=== PATIENT | female | born 1965 | race Caucasian/White ===

== ENCOUNTER → 2019-12-12 11:20 | Outpatient (BNVA) | payer OTHER, SELFPAY | PROVIDERS: Visit Provider Internal Medicine | DX: A53.9 Syphilis, unspecified (principal) | CPT/HCPCS: 96372; 99211; J0561 ==

== ENCOUNTER → 2019-12-22 14:32 | Outpatient (BNVA) | payer OTHER, SELFPAY | PROVIDERS: PCP Internal Medicine; Referring Provider Internal Medicine; Visit Provider Nurse Practitioner | DX: K90.0 Celiac disease (principal); K86.81 Exocrine pancreatic insufficiency; K21.9 Gastro-esophageal reflux disease without esophagitis; A53.9 Syphilis, unspecified; Z98.890 Other specified postprocedural states; Z79.899 Other long term (current) drug therapy | CPT/HCPCS: 96372; 99211; 99214; J0561 ==

== ENCOUNTER → 2020-01-12 08:41 | Outpatient (BNVA) | payer OTHER, SELFPAY | PROVIDERS: Visit Provider Nurse Practitioner | DX: K90.0 Celiac disease (principal); R10.11 Right upper quadrant pain; K21.9 Gastro-esophageal reflux disease without esophagitis; R19.7 Diarrhea, unspecified; R10.13 Epigastric pain | CPT/HCPCS: 99212 ==

== ENCOUNTER → 2020-04-25 10:00 | Outpatient (BNVA) | payer OTHER, SELFPAY | PROVIDERS: PCP Internal Medicine; Visit Provider Nurse Practitioner ==

== ENCOUNTER 2020-11-16 07:04 | Outpatient (REF) | payer OTHER, SELFPAY ==
[2020-11-16 07:36] LABS: MANUAL DIFF FLAG NO
[2020-11-16 07:38] LABS: Basophils Absolute Auto 0.1 X10*3/uL (0.0-0.2); Basophils Percent Auto 1.3 % (0-2); Eosinophils Absolute Auto 0.5 X10*3/uL (0.0-0.4); Hematocrit 42.1 % (37-47); Hemoglobin 13.6 g/dl (12.0-16.0); Imm Gran Abs Auto 0.01 X10*3/uL (0.00-0.03); Imm Gran Pct Auto 0.1 % (0.0-0.4); Lymphocytes Absolute Auto 2.7 X10*3/uL (1.2-4.9); Lymphocytes Percent Auto 40.1 % (20-40); Mean Corpuscular HGB Conc 32.3 g/dl (31.0-35.0); Mean Corpuscular Hemoglobin 28.4 pg (27.0-33.0); Mean Corpuscular Volume 87.9 fL (80-98); Mean Platelet Volume 10.7 fL (9.4-12.3); Monocytes Absolute Auto 0.7 X10*3/uL (0.1-1.2); Monocytes Percent Auto 10.3 % (2-11); Neutrophils Absolute Auto 2.8 X10*3/uL (2.0-8.3); Neutrophils Percent Auto 41.2 % (45-73); Platelet Count 249 X10*3/uL (160-400); Red Blood Count 4.79 X10*6/uL (4.20-5.50); Red Cell Distribution Width 12.9 % (11.0-16.0); White Blood Count 6.7 X10*3/uL (4.8-10.8)
[2020-11-16 07:57] LABS: Alanine Aminotransferase 21 U/L (0-31); Albumin Level 4.3 g/dL (3.5-5.0); Alkaline Phosphatase 133 U/L (39-117); Anion Gap 11 (12-20); Aspartate Amino Transferase 19 U/L (5-31); Bilirubin Total 0.4 mg/dL (0.0-1.0); Blood Urea Nitrogen 11 mg/dL (9-16); Calcium 10.2 mg/dL (8.4-10.2); Carbon Dioxide 27 mmol/L (22-29); Chloride 109 mmol/L (96-108); Cholesterol 200 mg/dL; Estimated Glomerular Filt Rate > 60; Glucose Fasting 97 mg/dL (60-99); HDL Cholesterol 41 mg/dL; LDL Cholesterol Calculated 124 mg/dl; Potassium 4.2 mmol/L (3.3-5.1); Sodium 143 mmol/L (135-145); Total Protein 7.2 g/dL (6.5-8.0); Triglycerides 176 mg/dL
[2020-11-21 20:57] LABS: Vitamin D 25-OH, D2 <4 ng/mL; Vitamin D 25-OH, D3 28 ng/mL; Vitamin D 25-OH, Total 28 ng/mL (30-100)
== END 2020-11-16 07:05 | disposition home or self-care (01) ==
LOC: HO.LAB 07:04
PROVIDERS: PCP Internal Medicine; Visit Provider Internal Medicine
DX: E55.9 Vitamin D deficiency, unspecified (principal); K21.9 Gastro-esophageal reflux disease without esophagitis; D64.9 Anemia, unspecified; E78.5 Hyperlipidemia, unspecified
CPT/HCPCS: 36415; 80053; 80061; 82306; 85025

== ENCOUNTER 2021-04-09 10:39 | Outpatient (REF) | payer OTHER, SELFPAY ==
[2021-04-11 14:21] LABS: Antibody to SS-A Antigen <1.0 NEG AI (<1.0 NEG); Antibody to SS-B Antigen <1.0 NEG AI (<1.0 NEG)
== END 2021-04-09 10:40 | disposition home or self-care (01) ==
LOC: HO.LAB 10:39
PROVIDERS: PCP Internal Medicine; Visit Provider Nurse Practitioner Family
DX: R68.2 Dry mouth, unspecified (principal); M54.2 Cervicalgia; M79.18 Myalgia, other site; F17.210 Nicotine dependence, cigarettes, uncomplicated; F33.0 Major depressive disorder, recurrent, mild; Z79.899 Other long term (current) drug therapy
CPT/HCPCS: 36415; 86235; 99202

== ENCOUNTER 2021-06-03 12:00 | Outpatient (RCR) | payer OTHER, SELFPAY ==
--- NOTE | 2021-05-10 13:19 | MHC.PT.EP ---
[facility] [place] [facility] [place] [facility] [place] [facility] [address] Kevin Valles [address] [phone] F: [phone] F: [phone] F: [phone] F: [phone] Physical Therapy Plan of Care Date of Evaluation: Date of Surgery: N/A Diagnosis: M79.18 myalgia, other site M54.2 cervicalgia Assessment: pt presents to physical therapy with pain, decreased range of motion, decreased strength, impaired functional mobility, impaired postural awareness, and gait deviations. pt is a good candidate for skilled PT due to age, potential remediation of impairments, typical disease/condition progression and prognosis, comorbidities, and motivation. pt would benefit from tailored strengthening and stretching exercise program, functional training, gait training, postural re-training, neuromuscular re-education, modalities as needed for pain, equipment safety demonstration. Frequency and Duration: The patient will be seen 2x/wk for 4 wks Short Term Goals: pt will be I w/ HEP to promote self-management of condition. pt will improve B cervical rotation by at least 10 degrees to promote ease w/ head turning for driving. Prison Goals: pt will report a statistically significant improvement in self-reported outcome measure, NDI, to promote return to PLOF. pt will improve B shoulder flexion by 15 degrees to promote ease in reaching for cooking utensils in higher cabinets for meal prep. Treatment Plan: Modalities to reduce pain, spasms and effusion. Manual therapy to restore motion and function. Therapeutic exercise to improve strength and flexibility. Neuromuscular re-education for posture and balance. Therapeutic activities to return to functional activities of daily living. Electronically signed by: Jennifer Britt PT, DPT Please sign and return to therapist. Thank you for your referral.
--- NOTE | 2021-06-18 14:49 | MHC.PT.DC ---
[facility] [place] Office [place] [facility] [place] Office [address] Kevin Valles [address] [phone] F: [phone] F: [phone] F: [phone] F: [phone] Physical Therapy Discharge Report Diagnosis: M79.18 myalgia, other site M54.2 cervicalgia Date of Surgery: N/A Date of Evaluation: 05/10/21 Date of Discharge: 06/18/21 Treatments to Date: 5 Cancellations to Date: 3 No Shows to Date: 1 Discharge Status: Improved Function Independent with HEP Visit Non-compliance Discharge Summary: The patient was consistently reporting complete resolution of her neck pain with physical therapy intervention. She had some residual tension to bilateral upper traps which were being managed with stretching, moist heat, and TENS. She no showed her last appointment and has not followed up with any another appointments in nearly two weeks. She is discharged from this physical therapy plan of care. Electronically signed by: Jennifer Britt PT, DPT Please sign and return to therapist. Thank you for your referral.
== END 2021-06-18 14:50 | disposition home or self-care (01) ==
LOC: HO.PT 12:00
PROVIDERS: PCP Internal Medicine; Visit Provider Nurse Practitioner Family
DX: M79.18 Myalgia, other site (principal); M54.2 Cervicalgia
CPT/HCPCS: 97014; 97110; 97140; 97162

== ENCOUNTER 2021-10-28 10:26 | Outpatient (REF) | payer OTHER, SELFPAY ==
--- NOTE | ~2021-10-28 | XR_ITS ---
EXAMINATION: 1. RADIOGRAPHS LUMBAR SPINE 2. RADIOGRAPHS SACROILIAC JOINTS CLINICAL INFORMATION: Low back pain with bilateral sciatica. COMPARISON: None TECHNIQUE: 3 views of the lumbar spine and 3 views of the sacroiliac joints were obtained. FINDINGS: 5 nonrib-bearing lumbar vertebral bodies are visualized. There is mild levoscoliosis of the lumbar spine, possibly positional. Lumbar vertebral body heights are maintained. There is a moderate to severe narrowing of the L5/S1 disc space height with mild narrowing of other scattered joint spaces throughout the lumbar spine. There are prominent degenerative changes of the posterior elements of the lower lumbar spine. Small osteophytes scattered throughout the lumbar spine. The pelvic ring is intact. Sacroiliac joints are symmetric. No gross sacral fracture. Small pelvic calcification is likely vascular in nature. XR/XR sacroiliac joint min 3V IMPRESSION: -Moderate degenerative changes of the lower lumbar spine. No compression deformity. -Symmetric sacroiliac joints.
--- NOTE | ~2021-10-28 | XR_ITS ---
EXAMINATION: 1. RADIOGRAPHS LUMBAR SPINE 2. RADIOGRAPHS SACROILIAC JOINTS CLINICAL INFORMATION: Low back pain with bilateral sciatica. COMPARISON: None TECHNIQUE: 3 views of the lumbar spine and 3 views of the sacroiliac joints were obtained. FINDINGS: 5 nonrib-bearing lumbar vertebral bodies are visualized. There is mild levoscoliosis of the lumbar spine, possibly positional. Lumbar vertebral body heights are maintained. There is a moderate to severe narrowing of the L5/S1 disc space height with mild narrowing of other scattered joint spaces throughout the lumbar spine. There are prominent degenerative changes of the posterior elements of the lower lumbar spine. Small osteophytes scattered throughout the lumbar spine. The pelvic ring is intact. Sacroiliac joints are symmetric. No gross sacral fracture. Small pelvic calcification is likely vascular in nature. XR/XR lumbar spine 2-3V IMPRESSION: -Moderate degenerative changes of the lower lumbar spine. No compression deformity. -Symmetric sacroiliac joints.
--- NOTE | ~2021-10-28 | US_ITS ---
EXAMINATION: US ABDOMEN COMPLETE CLINICAL INFORMATION: Left upper quadrant pain. COMPARISON: Ultrasound abdomen 12/17/2016. TECHNIQUE: Real-time imaging of the abdominal viscera. FINDINGS: PANCREAS: Normal. ABDOMINAL AORTA: The proximal, mid, and distal segments are normal in caliber. INFERIOR VENA CAVA: Visualized portions are normal. LIVER: Normal. The liver is normal in size. The liver contour is normal. Parenchymal echogenicity is normal. No focal hepatic lesion. There is no intrahepatic biliary duct dilatation seen. GALLBLADDER: Gallbladder polyps seen previously are not visualized at this time. The gallbladder is physiologically distended without evidence of stones, sludge, polyps, wall thickening or pericholecystic fluid. COMMON BILE DUCT: Normal in caliber measuring 0.4 cm in diameter. RIGHT KIDNEY: Normal. No hydronephrosis. No renal calculi or focal parenchymal lesions. The kidney measures 10.1 cm in maximum dimension. LEFT KIDNEY: Normal. No hydronephrosis. No renal calculi or focal parenchymal lesions. The kidney measures 11.2 cm in maximum dimension. SPLEEN: Normal. The spleen measures 8.5 cm in maximum dimension. FREE FLUID: None. US/US abdomen complete IMPRESSION: Unremarkable complete abdomen ultrasound. No gallbladder polyps seen at this time.
== END 2021-10-28 10:27 | disposition home or self-care (01) ==
LOC: HO.US 10:26
PROVIDERS: Visit Provider Internal Medicine
DX: R10.12 Left upper quadrant pain (principal); M54.42 Lumbago with sciatica, left side
CPT/HCPCS: 72100; 72202; 76700

== ENCOUNTER → 2021-11-04 12:54 | Outpatient (BNVA) | payer OTHER, SELFPAY | PROVIDERS: PCP Internal Medicine; Visit Provider Nurse Practitioner Family | DX: M15.4 Erosive (osteo)arthritis (principal); M79.641 Pain in right hand; M79.642 Pain in left hand; M25.561 Pain in right knee; M25.562 Pain in left knee; M25.50 Pain in unspecified joint; Z79.899 Other long term (current) drug therapy | CPT/HCPCS: 99202 ==

== ENCOUNTER 2021-11-27 12:10 | Outpatient (REF) | payer OTHER, SELFPAY ==
--- NOTE | ~2021-11-27 | XR_ITS ---
EXAMINATION: XR KNEE, BILATERAL CLINICAL INFORMATION: Bilateral knee pain COMPARISON: 10/16/2016 TECHNIQUE: 4 views of each knee FINDINGS: Right knee: No joint space narrowing. No joint effusion. No fracture or suspicious bone lesion. No change. Left knee: No joint space narrowing. No joint effusion. No fracture or suspicious bone lesion. No change. XR/XR knee RT 3V IMPRESSION: Right knee: Normal. Left knee: Normal.
--- NOTE | ~2021-11-27 | XR_ITS ---
EXAMINATION: XR HAND, BILATERAL CLINICAL INFORMATION: Erosive osteoarthritis COMPARISON: 03/30/2018 TECHNIQUE: 3 views of each hand FINDINGS: Left hand: Joint space narrowing and osteophytes in a distal distribution with central erosions of the 2nd and 3rd DIP joints, as well as marked narrowing with dorsal osteophyte formation of the 4th DIP joint has slightly progressed. No active erosion is evident. No acute osseous abnormality. Right hand: Narrowing and central erosive changes of the 3rd DIP joint has significantly progressed. Cannot exclude an active erosion. Narrowing and osteophyte formation of the 4th DIP joint is similar. Otherwise unremarkable. 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 Right hand: Progression of erosive osteoarthritis of the 3rd DIP joint. Cannot exclude an active erosion. Otherwise no significant change.
--- NOTE | ~2021-11-27 | XR_ITS ---
EXAMINATION: XR HAND, BILATERAL CLINICAL INFORMATION: Erosive osteoarthritis COMPARISON: 03/30/2018 TECHNIQUE: 3 views of each hand FINDINGS: Left hand: Joint space narrowing and osteophytes in a distal distribution with central erosions of the 2nd and 3rd DIP joints, as well as marked narrowing with dorsal osteophyte formation of the 4th DIP joint has slightly progressed. No active erosion is evident. No acute osseous abnormality. Right hand: Narrowing and central erosive changes of the 3rd DIP joint has significantly progressed. Cannot exclude an active erosion. Narrowing and osteophyte formation of the 4th DIP joint is similar. Otherwise unremarkable. 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 Right hand: Progression of erosive osteoarthritis of the 3rd DIP joint. Cannot exclude an active erosion. Otherwise no significant change.
--- NOTE | ~2021-11-27 | XR_ITS ---
EXAMINATION: XR SINUSES CLINICAL INFORMATION: Chronic sinusitis COMPARISON: None TECHNIQUE: 3 views of the sinuses were obtained. FINDINGS: There is a layering air-fluid level within the right maxillary sinus. There is mucosal thickening and possible small amount of fluid in the left maxillary sinus. The ethmoid and frontal sinuses appear clear. No acute osseous abnormality is evident. XR/XR sinus min 3V IMPRESSION: Maxillary sinus disease with prominent air-fluid level within the right maxillary sinus and probable mucosal thickening of the left.
--- NOTE | ~2021-11-27 | XR_ITS ---
EXAMINATION: XR CERVICAL SPINE CLINICAL INFORMATION: Cervicalgia COMPARISON: None TECHNIQUE: 3 views of the cervical spine were obtained. FINDINGS: Moderate degenerative disc disease at C5-C6 with slight retrolisthesis, and C6-C7. Mild degenerative disc disease at C3-C4 with minimal anterolisthesis, and C4-C5. No fracture or prevertebral soft tissue swelling. Facet arthrosis is prominent on the right at the mid cervical spine. Prominent degenerative changes also present at the anterior atlantoaxial junction. XR/XR cervical spine 3V IMPRESSION: Mild to moderate multilevel spondylosis as described, most prominent at C5-C6 and C6-C7.
--- NOTE | ~2021-11-27 | XR_ITS ---
EXAMINATION: XR KNEE, BILATERAL CLINICAL INFORMATION: Bilateral knee pain COMPARISON: 10/16/2016 TECHNIQUE: 4 views of each knee FINDINGS: Right knee: No joint space narrowing. No joint effusion. No fracture or suspicious bone lesion. No change. Left knee: No joint space narrowing. No joint effusion. No fracture or suspicious bone lesion. No change. XR/XR knee LT 3V IMPRESSION: Right knee: Normal. Left knee: Normal.
[2021-11-27 13:15] LABS: Basophils Percent Auto 1.3 % (0-2); Eosinophils Absolute Auto 0.1 X10*3/uL (0.0-0.4); Eosinophils Percent Auto 4.5 % (0-4); Hematocrit 42.9 % (37.0-47.0); Hemoglobin 13.7 g/dl (12.0-16.0); Imm Gran Abs Auto 0.01 X10*3/uL (0.00-0.03); Imm Gran Pct Auto 0.3 % (0.0-0.4); Lymphocytes Absolute Auto 1.5 X10*3/uL (1.2-4.9); Lymphocytes Percent Auto 47.4 % (20-40); MANUAL DIFF FLAG SCAN; Mean Corpuscular HGB Conc 31.9 g/dl (31.0-35.0); Mean Corpuscular Hemoglobin 27.7 pg (27.0-33.0); Mean Corpuscular Volume 86.7 fL (80.0-98.0); Mean Platelet Volume 10.9 fL (9.4-12.3); Monocytes Absolute Auto 0.5 X10*3/uL (0.1-1.2); Monocytes Percent Auto 14.7 % (2-11); Neutrophils Percent Auto 31.8 % (45-73); Platelet Count 205 X10*3/uL (160-400); Red Blood Count 4.95 X10*6/uL (4.20-5.50); Red Cell Distribution Width 13.5 % (11.0-16.0); SCAN SMEAR FLAG 1; White Blood Count 3.1 X10*3/uL (4.8-10.8)
[2021-11-27 13:36] LABS: SLIDE REVIEW VERIFIED
[2021-11-27 13:39] LABS: Alanine Aminotransferase 30 U/L (0-31); Aspartate Amino Transferase 29 U/L (5-31); C Reactive Protein 0.51 mg/dL (< or = 0.50); Estimated Glomerular Filt Rate > 60
[2021-11-27 13:58] LABS: Erythrocyte Sedimentation Rate 10 MM/HR (0-20)
== END 2021-11-27 12:11 | disposition home or self-care (01) ==
LOC: HO.XRAY 12:10
PROVIDERS: PCP Internal Medicine; Visit Provider Nurse Practitioner Family
DX: M15.4 Erosive (osteo)arthritis (principal); M25.50 Pain in unspecified joint; J32.9 Chronic sinusitis, unspecified; M54.2 Cervicalgia; M79.641 Pain in right hand; M79.642 Pain in left hand; M25.561 Pain in right knee; M25.562 Pain in left knee
CPT/HCPCS: 36415; 70220; 72040; 73130; 73562; 82565; 84450; 84460; 85025; 85652; 86140

== ENCOUNTER → 2021-11-28 11:06 | Outpatient (REF) | payer OTHER, SELFPAY | LOC: HO.SL 11:06 | PROVIDERS: PCP Internal Medicine; Visit Provider Nurse Practitioner Family | DX: G47.33 Obstructive sleep apnea (adult) (pediatric) (principal); R06.83 Snoring; R40.0 Somnolence | CPT/HCPCS: 95806 ==

== ENCOUNTER 2021-12-17 09:30 | Outpatient (RCR) | payer OTHER, SELFPAY ==
--- NOTE | 2021-11-27 12:28 | MHC.OT.EP ---
[address] [phone] Occupational Therapy Plan of Care Date of Evaluation: 11/27/21 Diagnosis: Bilateral hand pain Assessment: Pt. is a 56 y/o female referred to OT for bilateral hand pain; dx of osteoarthritis in 2019. Pt. reports pain has been progressively getting worse over the last year. Pt. 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 Pt. does also c/o back pain radiating to L hip/LE and is awaiting a referral to PT. Pt. was educated in role of OT, POC, and goals. Lorena would benefit from short term skilled OT for pain management, education on joint protection techniques and strengthening to increase ease with ADL's/IADL's. Pt. in agreement with plan. 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 Thank you once again for your referral.
[2021-12-17 10:15] LABS: MANUAL DIFF FLAG NO
[2021-12-17 10:34] LABS: Basophils Absolute Auto 0.1 X10*3/uL (0.0-0.2); Basophils Percent Auto 1.1 % (0-2); Eosinophils Absolute Auto 0.3 X10*3/uL (0.0-0.4); Eosinophils Percent Auto 5.1 % (0-4); Hematocrit 41.7 % (37.0-47.0); Hemoglobin 13.1 g/dl (12.0-16.0); Imm Gran Abs Auto 0.01 X10*3/uL (0.00-0.03); Imm Gran Pct Auto 0.2 % (0.0-0.4); Lymphocytes Absolute Auto 2.5 X10*3/uL (1.2-4.9); Lymphocytes Percent Auto 39.5 % (20-40); Mean Corpuscular HGB Conc 31.4 g/dl (31.0-35.0); Mean Corpuscular Hemoglobin 27.3 pg (27.0-33.0); Mean Corpuscular Volume 87.1 fL (80.0-98.0); Mean Platelet Volume 11.2 fL (9.4-12.3); Monocytes Absolute Auto 0.6 X10*3/uL (0.1-1.2); Monocytes Percent Auto 8.7 % (2-11); Neutrophils Absolute Auto 2.9 x10*3/uL (2.0-8.3); Neutrophils Percent Auto 45.4 % (45-73); Platelet Count 250 X10*3/uL (160-400); Red Blood Count 4.79 X10*6/uL (4.20-5.50); White Blood Count 6.3 X10*3/uL (4.8-10.8)
== END 2022-03-19 09:57 | disposition home or self-care (01) ==
LOC: HO.OT 09:30
PROVIDERS: PCP Internal Medicine; Visit Provider Nurse Practitioner Family
DX: M79.641 Pain in right hand (principal); M79.642 Pain in left hand
CPT/HCPCS: 36415; 85025; 97018; 97110; 97165

== ENCOUNTER → 2022-01-02 11:06 | Outpatient (BNVA) | payer OTHER, SELFPAY | PROVIDERS: PCP Internal Medicine; Visit Provider Internal Medicine | DX: G47.33 Obstructive sleep apnea (adult) (pediatric) (principal); R40.0 Somnolence; G47.34 Idiopathic sleep related nonobstructive alveolar hypoventilation | CPT/HCPCS: 99202 ==

== ENCOUNTER 2022-04-01 10:42 | Outpatient (REF) | payer OTHER, SELFPAY ==
--- NOTE | ~2022-04-01 | MM_ITS ---
EXAMINATION: MM DIAGNOSTIC DIGITAL BREAST TOMOSYNTHESIS, BILATERAL US DIAGNOSTIC ULTRASOUND BREAST, LEFT CLINICAL INFORMATION: Left nipple pain and burning sensation. No discharge. No erythema. The lifetime risk of breast cancer based on the Tyrer-Cuzick Model is 7%. COMPARISON: None. TECHNIQUE: Digital breast tomosynthesis is performed in both the craniocaudal and mediolateral oblique views along with computer-aided detection (CAD). Synthesized 2D images are generated from the tomosynthesis. Ultrasound anterior left breast targeted to the nipple, areolar, subareolar and periareolar region. Grayscale imaging and color Doppler are performed without and with harmonics. FINDINGS: There are scattered areas of fibroglandular density (ACR BI-RADS breast composition Category b). Breast tissue composition borders on heterogeneously dense. There is a fine fibronodular parenchymal pattern. No significant mass or architectural abnormality. No abnormal calcifications. The axilla and skin contours are unremarkable. There is no skin thickening or coarsening of the Fortino's ligaments. Ultrasound left breast demonstrates no cystic or solid mass, architectural abnormality, or focal duct ectasia. No hyperemia. No skin thickening or edema tracking in the soft tissue planes. Results are discussed with the patient at time of visit, using an sales relationship manager. If previous outside mammography is able to be retrieved, comparison will be performed in an addendum report. MM/MM tomosynthesis diagnostic BI IMPRESSION: 1. No mammographic evidence of malignancy or inflammatory changes. 2. Unremarkable targeted left breast ultrasound. ASSESSMENT: BI-RADS 1: Negative RECOMMENDATION: 1. Patient should be managed based on the clinical impression. 2. Otherwise, routine annual screening mammography. This patient's information was entered into a reminder system with a target due date for their next mammogram.
== END 2022-04-01 10:43 | disposition home or self-care (01) ==
LOC: HO.MAMMO 10:42
PROVIDERS: PCP Internal Medicine; Visit Provider Internal Medicine
DX: N64.4 Mastodynia (principal)
CPT/HCPCS: 76642; 77062; 77066

== ENCOUNTER → 2022-06-03 10:36 | Outpatient (BNVA) | payer OTHER, SELFPAY | PROVIDERS: PCP Internal Medicine; Visit Provider Internal Medicine | DX: G47.33 Obstructive sleep apnea (adult) (pediatric) (principal); G47.34 Idiopathic sleep related nonobstructive alveolar hypoventilation; J30.9 Allergic rhinitis, unspecified | CPT/HCPCS: 99212 ==

== ENCOUNTER → 2022-07-08 11:28 | Outpatient (BNVA) | payer OTHER, SELFPAY | PROVIDERS: PCP Internal Medicine; Visit Provider Nurse Practitioner Family | DX: M15.4 Erosive (osteo)arthritis (principal); M25.50 Pain in unspecified joint; M54.42 Lumbago with sciatica, left side; M54.41 Lumbago with sciatica, right side | CPT/HCPCS: 99212 ==

== ENCOUNTER 2022-12-15 13:26 | Outpatient (AMB) | payer OTHER, SELFPAY ==
--- NOTE | 2022-12-15 15:18 | MHC.OFFWIV ---
Intake Vital Signs 12/15/22 15:19 Height 5 ft 7 in Weight 162 lb BMI 25.4 BP 122/76 Blood Pressure Location Lt brachial Position Sitting Pulse 83 Pulse Source Pulse Oximeter Pulse Oximetry (%) 98 Oxygen Delivery Method Room Air Intake Visit Reasons: EP sore throat/?Sinus (masked) Intake Note: Patient here for sore throat that has been present since or thursday and has been having difficulty swallowing and also has complaints of ear pain, the left side mostly. Patient Tobacco Use Status: Current someday Tobacco user Allergies No Known Allergies [No Known Allergies*] Allergy (Verified 12/15/22 16:01) Medication List - Last Reconciled 12/15/22 by Krishan Fox MD acetaminophen 500 mg PO Q6H PRN albuterol sulfate 90 mcg/actuation 2 puffs inhalation Q6H PRN 30 days diclofenac sodium 1% (Voltaren Arthritis Pain) 2 grams topical BID escitalopram oxalate 10 mg PO DAILY fluticasone propionate 50 mcg/actuation 1 spray intranasal DAILY ibuprofen 800 mg (2 x 400 mg) PO TID 30 days imipramine HCl 10 mg PO BID 90 days ipratropium bromide 2 sprays intranasal TID 30 days omeprazole 20 mg PO DAILY sodium chloride 0.65% (Saline Nasal) 1 spray intranasal Q4H PRN tizanidine 2 mg PO BEDTIME PRN 30 days HPI EP sore throat/?Sinus (masked) HPI Details Patient presents for a sick visit. Reporting symptoms of sinus congestion, sore throat and difficulty swallowing. Low-grade fever. No family member is sick. No recent travel. Patient reports symptoms of malaise and fatigue. [facility] Medical History Allergic rhinitis Blurry vision delivery delivered Chronic sinusitis Dry mouth Herpes zoster Insomnia Mild recurrent major depression Neck pain Nocturnal hypoxemia Numbness Polyarthritis Urge urinary incontinence Surgical History History of appendectomy History of esophagogastroduodenoscopy (EGD) Hx of colonoscopy Family History Father HTN (hypertension) Mother HTN (hypertension) Sister HTN (hypertension) Brother No problems noted. Son No problems noted. Daughter No problems noted. Paternal Grandfather Colon cancer Social History Household Members: Children Household Members Other:: grandchildren Housing: House Alcohol intake: never Patient Tobacco Use Status: Current someday Tobacco user Tobacco use type: Cigarette Cigarettes Per Day: 3 e-Cigarette/Vaping Use: Never Used Second Hand Smoke Exposure: No Substance Use Type: Marijuana service: No Current occupational status: unemployed Cognitive needs: No Hearing needs: No Vision needs: Yes (glasses) Physical Exam Vital Signs: Last Vital Signs Pulse 83 12/15/22 15:19 BP 122/76 12/15/22 15:19 Pulse Ox 98 12/15/22 15:19 Oxygen Delivery Method Room Air 12/15/22 15:19 BMI result Body Mass Index 25.4 Const General: cooperative and healthy appearing Nutritional Appearance: well nourished Orientation/consciousness: patient oriented x3 Limitations: no limitations HEENT Head: Yes normal to inspection Eyes General: appearance normal, both eyes and all related structures Neck Neck: Yes normal visual inspection Chest Chest palpation & inspection: normal palpation of entire chest wall Resp Effort & Inspection: normal respiratory effort Neuro General: patient oriented x3 Results AMB Rapid Strep AMB Rapid Strep Positive Last Edit by SHAKEEL Bassett on 12/15/22 15:45 AMB Rapid Strep previously reported as Negative Miah Knapp 12/15/22 15:45 Results Reviewed Results Reviewed: Laboratory Last Values Strep Scn [facility] Positive 12/15/22 15:41 Assessment & Plan Assessment & Plan (1) Upper respiratory tract infection: Code(s): J06.9 - Acute upper respiratory infection, unspecified Qualifiers: URI type: unspecified viral URI Qualified Code(s): J06.9 - Acute upper respiratory infection, unspecified Plan: Antibiotics ordered. Increase fluid intake. Tylenol for aches and pains. If symptoms worsen, follow-up here for a recheck. Strep results were discussed with patient. Orders: Orders AMB Rapid Strep Screen Today Z13.9 - Encounter for screening, unspecified Coding Level of Care Code Est Pt Level 3 (81694) Diagnoses Viral upper respiratory tract infection J06.9 URI type: unspecified viral URI
[2022-12-15 15:19] VITALS: BP 122/76; PULSE 83; O2SAT 98; BMI 25.4
== END 2022-12-15 16:25 | disposition home or self-care (01) ==
PROVIDERS: PCP Internal Medicine; Visit Provider Internal Medicine
DX: J06.9 Acute upper respiratory infection, unspecified (principal); J02.9 Acute pharyngitis, unspecified
CPT/HCPCS: 87880; 99213

== ENCOUNTER 2023-01-05 10:43 | Outpatient (AMB) | payer OTHER, SELFPAY ==
[2023-01-05 10:52] VITALS: BP 92/58; PULSE 78; O2SAT 97; BMI 25.5
--- NOTE | 2023-01-05 10:52 | A.OFFVIS_ITS ---
Intake Vital Signs 01/05/23 10:52 Height 5 ft 7 in Weight 163 lb BMI 25.5 BP 92/58 L Blood Pressure Location Lt brachial Position Sitting Pulse 78 Pulse Source Pulse Oximeter Pulse Oximetry (%) 97 Oxygen Delivery Method Room Air Intake Visit Reasons: Obstructive sleep apnea Intake Note: pt is here for follow up and states she is not using cpap Community Service Officer Required: Yes Community Service Officer Name: merritt Allergies No Known Allergies [No Known Allergies*] Allergy (Verified 01/05/23 11:15) Medication List - Last Reconciled 01/05/23 by Whit Guzman MD acetaminophen 500 mg PO Q6H PRN albuterol sulfate 90 mcg/actuation 2 puffs inhalation Q6H PRN 30 days diclofenac sodium 1% (Voltaren Arthritis Pain) 2 grams topical BID escitalopram oxalate 10 mg PO DAILY fluticasone propionate 50 mcg/actuation 1 spray intranasal DAILY ibuprofen 800 mg (2 x 400 mg) PO TID 30 days imipramine HCl 10 mg PO BID 90 days ipratropium bromide 2 sprays intranasal TID 30 days omeprazole 20 mg PO DAILY sodium chloride 0.65% (Saline Nasal) 1 spray intranasal Q4H PRN tizanidine 2 mg PO BEDTIME PRN 30 days Do you need a note to return to daycare/school/sports/work: No HPI Obstructive sleep apnea HPI Details This 57 years old female is a case of obstructive sleep apnea secondary to, Retroganthia of the lower jaw, a fixed deformity. CPAP with full face mask was prescribed. Patient has not been able to use it. Complains of claustrophobic feeling when she puts the face mask on. Has not been sleeping good because of, snoring and frequent awakening. She has a rather severe is degree of sleep apnea. Her weight is relatively normal. She does have allergic rhinitis which is controlled with use of Flonase. [facility] Medical History Allergic rhinitis Nocturnal hypoxemia Blurry vision Polyarthritis Mild recurrent major depression Urge urinary incontinence Dry mouth Neck pain Numbness Chronic sinusitis Insomnia Herpes zoster delivery delivered Surgical History Hx of colonoscopy History of esophagogastroduodenoscopy (EGD) History of appendectomy Family History Father HTN (hypertension) Mother HTN (hypertension) Sister HTN (hypertension) Brother No problems noted. Son No problems noted. Daughter No problems noted. Paternal Grandfather Colon cancer Social History Household Members: Children Household Members Other:: grandchildren Housing: House Alcohol intake: never Patient Tobacco Use Status: Current someday Tobacco user Tobacco use type: Cigarette Cigarettes Per Day: 3 e-Cigarette/Vaping Use: Never Used Second Hand Smoke Exposure: No Substance Use Type: Marijuana service: No Current occupational status: unemployed Cognitive needs: No Hearing needs: No Vision needs: Yes (glasses) Review of Systems Const All systems reviewed & are unremarkable except as noted in HPI and below Eyes Reports no additional complaints ENT Reports nasal congestion, Reports nasal discharge and Reports nasal obstruction Card Reports no additional complaints Resp Reports no additional complaints GI Reports heartburn (GERD symptoms being treated with omeprazole) Reports no additional complaints Musc Reports myalgias and Reports arthralgias Skin/Breast Reports system reviewed and no additional complaints, except as documented Neuro Reports no additional complaints Psych Reports depression (Treated with escitalopram 10 mg daily) Endo Reports no additional complaints Bill/Lymph Reports no additional complaints Physical Exam Vital Signs: Last Vital Signs Pulse 78 01/05/23 10:52 BP 92/58 L 01/05/23 10:52 Pulse Ox 97 01/05/23 10:52 Oxygen Delivery Method Room Air 01/05/23 10:52 BMI result Body Mass Index 25.5 Const General: healthy appearing, comfortable, no acute distress, alert and awake Orientation/consciousness: patient oriented x3 HEENT Other: She does have marked nasal congestion with almost partial obliteration of the nasal cavities. Head: Yes normal to inspection General nose exam: No nasal polyps present, No nasal discharge present and Abnormal mucous membranes and turbinates present (Marked hypertrophy of the nasal turbinates with the partial obliteration of) Face and sinus: Yes sinuses nontender Mouth: oropharynx normal Throat: Yes posterior oropharynx normal Eyes General: appearance normal, both eyes and all related structures Neck Neck: Yes normal visual inspection, Yes no lymphadenopathy, Yes trachea midline and Yes no JVD Thyroid: Thyroid normal Chest Chest palpation & inspection: normal inspection of the chest, normal palpation of entire chest wall and no tenderness Resp Effort & Inspection: normal respiratory effort Auscultation: no crackles, no rales and no wheezes Cardio Palpation: normal PMI Rate: regular rate Rhythm: regular rhythm Heart sounds: no gallops and no murmurs GI Palpation (GI): Soft to palpation, nontender, No hepatosplenomegaly present and no masses Auscultation: normal bowel sounds Back/Spine/Pelvis Thoracic/Lumbar Spine: thoracic and lumbar spine normal to inspection Skin General skin exam: no rashes or lesions noted Neuro General: patient oriented x3 and no focal motor deficits Cranial nerves: Yes CN's II-XII intact bilaterally Extrem General: Yes normal to inspection, Yes no clubbing, cyanosis or edema and Yes no calf tenderness Psych Appearance: grossly normal and well kempt Speech and movement: Normal speech and movement present Results Reviewed Results Reviewed: COMPLIANCE REPORT IS BLANK AND SHE HAS ACTUALLY NOT USED THE CPAP AT ALL. Assessment & Plan Assessment & Plan (1) JEREMIAH (obstructive sleep apnea): Comment: PATIENT IS OF NORMAL WEIGHT. SHE DOES HAVE RATHER SEVERE DEGREE OF OBSTRUCTIVE SLEEP APNEA. THIS SEEMS TO BE SECONDARY TO RETROGANTHIA AND CHRONIC ADELE- FACIAL MALFORMATION. EXPLAINED ABOUT THE FINDINGS OF THE SLEEP STUDY. TX: This patient has try to use CPAP with full face mask, but cannot use due to claustrophobia . Other options such as, ADELE DENTAL DEVICE, OR INSPIRE, discussed with her. She would like to try using CPAP with a nasal interface, Which is being ordered. She may need to use chinstrap along with that. I explained to her that the use of CPAP is the best option for her. If she still can not use then I would make arrangement to have her go for an Adele dental device. Code(s): G47.33 - Obstructive sleep apnea (adult) (pediatric) (2) Nocturnal hypoxemia: Comment: NOCTURNAL HYPOXEMIA IS MINIMAL AND IS EXPECTED TO RESOLVE WITH THE USE OF CPAP. SHE DOES NOT HAVE ANY UNDERLYING LUNG DISEASE. Code(s): G47.34 - Idiopathic sleep related nonobstructive alveolar hypoventilation (3) Allergic rhinitis: Comment: Chronic nasal congestion and blockage seems to be secondary to allergic rhinitis. TX: As noted under JEREMIAH , Code(s): J30.9 - Allergic rhinitis, unspecified Coding Level of Care Code Est Pt Level 3 (83161) Diagnoses JEREMIAH (obstructive sleep apnea) G47.33 Nocturnal hypoxemia G47.34 Allergic rhinitis J30.9
== END 2023-01-05 11:15 | disposition home or self-care (01) ==
PROVIDERS: PCP Internal Medicine; Visit Provider Internal Medicine
DX: G47.33 Obstructive sleep apnea (adult) (pediatric) (principal); G47.34 Idiopathic sleep related nonobstructive alveolar hypoventilation; J30.9 Allergic rhinitis, unspecified
CPT/HCPCS: 99213

== ENCOUNTER → 2023-01-05 10:43 | Outpatient (BNVA) | payer OTHER, SELFPAY | PROVIDERS: PCP Internal Medicine; Visit Provider Internal Medicine | DX: G47.33 Obstructive sleep apnea (adult) (pediatric) (principal); G47.34 Idiopathic sleep related nonobstructive alveolar hypoventilation; J30.9 Allergic rhinitis, unspecified | CPT/HCPCS: 99212 ==

== ENCOUNTER 2023-02-25 13:40 | Outpatient (REF) | payer OTHER, SELFPAY ==
[2023-02-26 07:57] LABS: HBc Num1 0.24 S/CO (0.00-0.79); HIV AB/AG Nonreactive (Nonreactive); HIV Num 1 0.07 S/CO (0.00-0.99); Hepatitis B Core Antibody Nonreactive (Nonreactive); ~HepC Num1 0.43 S/CO (0.00-0.79); ~Hepatitis C Antibody Nonreactive (Nonreactive)
[2023-02-26 11:43] LABS: CT PCR NOT DETECTED (Not Detect.); NG PCR NOT DETECTED (Not Detect.)
[2023-02-26 12:18] LABS: BV Int Neg Control Negative (Negative); BV Int Pos Control Positive (Positive)
[2023-02-27 13:23] LABS: RPR Rapid Plasma Reagin NON-REACTIVE (NON-REACTIVE)
== END 2023-02-25 13:41 | disposition home or self-care (01) ==
LOC: HO.LAB 13:40
PROVIDERS: PCP Internal Medicine; Visit Provider Advanced Practice Midwife
DX: Z11.4 Encounter for screening for human immunodeficiency virus [HIV] (principal); Z20.2 Contact with and (suspected) exposure to infections with a predominantly sexual mode of transmission; N39.41 Urge incontinence; Z86.19 Personal history of other infectious and parasitic diseases
CPT/HCPCS: 0353U; 36415; 86592; 86704; 86803; 87389; 87480; 87510; 87660; 99386

== ENCOUNTER 2023-02-25 13:40 | Outpatient (AMB) | payer OTHER, SELFPAY ==
--- NOTE | 2023-02-25 13:42 | MHC.OFFVIS ---
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 She is doing well with no concerns. Attempting to eat a healthy diet with calcium and vitamin D and stays active with exercise. Currently Not sexually active. Denies any vaginal dryness or irritation. STI testing offered; she accepts. Reports she has had syphilis treated twice in the past Last pap smear; 2016. Last mammogram; 2022. Colonoscopy is UTD, 2019. [facility] Medical History Allergic rhinitis Nocturnal hypoxemia Blurry vision Polyarthritis Mild recurrent major depression Urge urinary incontinence Dry mouth Neck pain Numbness Chronic sinusitis Insomnia Herpes zoster delivery delivered Surgical History Hx of colonoscopy History of esophagogastroduodenoscopy (EGD) History of appendectomy Family History Father HTN (hypertension) Mother HTN (hypertension) Sister HTN (hypertension) Brother No problems noted. Son No problems noted. Daughter No problems noted. Paternal Grandfather Colon cancer Social History Household Members: Children Household Members Other:: grandchildren Housing: House Alcohol intake: never Patient Tobacco Use Status: Current someday Tobacco user Tobacco use type: Cigarette Cigarettes Per Day: 3 e-Cigarette/Vaping Use: Never Used Second Hand Smoke Exposure: No Substance Use Type: Marijuana service: No Current occupational status: unemployed Cognitive needs: No Hearing needs: No Vision needs: Yes (glasses) Female Reproductive History Menstrual Total pregnancies: 2 Full term: 2 Number of Living Children: 2 Date of last pap smear: 10/28/16 (neg pap and hpv) Date of Mammogram: 04/01/22 (Birad 1) Review of Systems Const All systems reviewed & are unremarkable except as noted in HPI and below Reports as per HPI Eyes Reports no additional complaints ENT Reports no additional complaints Card Reports no additional complaints Resp Reports no additional complaints GI Reports as per HPI and Reports no additional complaints Reports as per HPI Musc Reports no additional complaints Skin/Breast Reports as per HPI Neuro Reports no additional complaints Psych Reports no additional complaints Endo Reports no additional complaints Bill/Lymph Reports no additional complaints Aller/Immun Reports no additional complaints Physical Exam Vital Signs: Last Vital Signs BP 110/72 02/25/23 13:43 BMI result Body Mass Index 25.4 Const General: cooperative, healthy appearing, no acute distress, well developed and alert Orientation/consciousness: patient oriented x3 HEENT Head: Yes normal to inspection Eyes General: appearance normal, both eyes and all related structures Neck Neck: Yes normal visual inspection Thyroid: Thyroid normal Chest Chest palpation & inspection: normal inspection of the chest and other (no puckering, dimpling, peau de orange, retraction, discharge, masses) Breast/axilla inspection: normal inspection of the breasts Breast/axilla palpation: normal palpation of the breasts Resp Effort & Inspection: normal respiratory effort GI Inspection: Yes normal to inspection and Yes scar Palpation (GI): Soft to palpation Rectal Exam - Female: deferred General: Yes bladder normal to palpation External Female Exam: normal external appearance and normal appearance of the urethra Speculum Exam - Vagina: normal appearance of the vagina, normal palpation and normal vaginal discharge Speculum Exam - Cervix: normal appearance of the cervix and normal palpation Bimanual exam- vagina & uterus: normal bimanual exam, normal palpation, uterine size normal, bladder normal to palpation, normal palpation and non-tender Bimanual Exam- Adnexa, other: no masses Skin General skin exam: no rashes or lesions noted Rashes: no rashes Neuro General: patient oriented x3 Cognition (Neuro): normal cognition Extrem General: Yes normal to inspection Psych Attitude: cooperative Thought process: Normal thought process present Assessment & Plan Assessment & Plan (1) Encounter for well woman exam with routine gynecological exam: Code(s): Z01.419 - Encounter for gynecological examination (general) (routine) without abnormal findings Plan Discussed: Current recommendations for pap smears per ASCCP guidelines. Breast awareness, periodic self breast exams and yearly mammogram. Maintain a healthy lifestyle, well balanced diet including Calcium 1,200 mg and Vitamin D 600 IU daily, and routine exercise. Use of condoms for STI if indicated. Contact the office with any postmenopausal bleeding. All of her questions and concerns were addressed to the best of my ability. 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 This note is constructed using voice recognition software. While every effort has been made to ensure accuracy, insurance associate errors may have been included. Orders: Orders RPR Monitor reflex titer Today Z86.19 - Personal history of other infectious and parasitic diseases Hepatitis C Antibody Today Z20.2 - Contact with and (suspected) exposure to infections with a predominantly sexual mode of transmission HIV Ab/Ag Today Z20.2 - Contact with and (suspected) exposure to infections with a predominantly sexual mode of transmission Hepatitis B Core Antibody Today Z20.2 - Contact with and (suspected) exposure to infections with a predominantly sexual mode of transmission MM tomosynthesis screening BI Today Z12.31 - Encounter for screening mammogram for malignant neoplasm of breast Coding Level of Care Code New Pt Prev Care 40-64y(13922) Diagnoses Encounter for well woman exam with routine gynecological exam Z01.419
[2023-02-25 13:43] VITALS: BP 110/72; BMI 25.4
== END 2023-02-25 15:11 | disposition home or self-care (01) ==
LOC: HO.HWS 13:40
PROVIDERS: PCP Internal Medicine; Visit Provider Advanced Practice Midwife
DX: Z01.419 Encounter for gynecological examination (general) (routine) without abnormal findings (principal)
CPT/HCPCS: 99386

== ENCOUNTER 2023-02-25 14:23 | Outpatient (REF) | payer OTHER, SELFPAY ==
[2023-03-04 07:54] LABS: HPV 16 RNA NOT DETECTED (NOT DETECTED); HPV mRNA E6/E7 rflx Detected (Not Detected)
== END 2023-02-25 14:24 | disposition home or self-care (01) ==
LOC: HO.LNP 14:23
PROVIDERS: Visit Provider Advanced Practice Midwife
DX: Z01.419 Encounter for gynecological examination (general) (routine) without abnormal findings (principal); Z11.51 Encounter for screening for human papillomavirus (HPV)
CPT/HCPCS: 87624; 87625; 88142

== ENCOUNTER 2023-02-25 14:23 | Outpatient (REF) | payer OTHER, SELFPAY | END 2023-02-25 14:24 | disposition home or self-care (01) | LOC: HO.LAB 14:23 | PROVIDERS: Visit Provider Advanced Practice Midwife | DX: Z13.89 Encounter for screening for other disorder (principal) ==

== ENCOUNTER 2023-03-17 12:07 | Emergency (ER) | payer OTHER, SELFPAY ==
--- NOTE | ~2023-03-17 | XR_ITS ---
EXAMINATION: XR LUMBOSACRAL SPINE CLINICAL INFORMATION: Low back pain, fall. COMPARISON: 10/28/2021 TECHNIQUE: 4 views of the lumbosacral spine. FINDINGS: Mild levoscoliosis of the lumbar spine. Small rounded pelvic calcifications are likely vascular. Facet arthritis in the lower lumbar spine. Fhpxxman-wk-zplzel degenerative changes at L5-S1 with loss of disc space height and hypertrophic change. Moderate spondylosis and loss of disc space height at L2-L3. The bones are diffusely demineralized. XR/XR lumbar spine 2-3V IMPRESSION: 1. Uluoogky-ky-lxaqtm degenerative disc disease most notable at L5-S1. 2. Facet arthritis in the lower lumbar spine. Additional imaging with CT scan or MRI should be considered for better visualization as these modalities are much more sensitive for detection of fracture or other underlying pathology.
--- NOTE | ~2023-03-17 | CT_ITS ---
EXAMINATION: CT LUMBAR SPINE WITHOUT CONTRAST CLINICAL INFORMATION: Fall on back. COMPARISON: Lumbar spine radiographs from 03/17/2023. TECHNIQUE: Multidetector helical imaging of the lumbar spine was obtained without intravenous contrast. Multiple axial reformats and coronal/sagittal reconstructions were created the technologist workstation for review. This CT examination was performed using dose optimization techniques as appropriate, variously including the following: *Automated exposure control. *Adjustment of mA and/or kV according to patient size (this includes techniques or standardized protocols for targeted exams where dose is matched to indication/reason for exam; i.e. extremities or head). *Use of iterative reconstruction technique. DLP: 509 mGy-cm FINDINGS: Mild left convex curvature of the lumbar spine. Minimal degenerative grade 1 anterolisthesis of L4 on L5. No evidence of acute fracture or traumatic subluxation. The vertebral body heights are maintained. Advanced degenerative disc disease at L5-S1. Moderate degenerative disc disease from L2-L5. No suspicious lytic or sclerotic osseous lesions. No significant abnormalities of the paraspinal musculature. Limited evaluation of the intra-abdominal structures without significant abnormalities. The abdominal aorta is of normal contour and caliber with mild calcific atherosclerotic disease. AXIAL SPINAL LEVELS: L1-L2: Shallow diffuse disc bulge. There is mild bilateral facet joint arthropathy. There is no neural foraminal stenosis. There is no demonstrated spinal canal stenosis. L2-L3: Mild diffuse disc bulge. There is mild bilateral facet joint arthropathy. There is no neural foraminal stenosis. There is no demonstrated spinal canal stenosis. L3-L4: Mild diffuse disc bulge. There is moderate bilateral facet joint arthropathy. There is no neural foraminal stenosis. There is no demonstrated spinal canal stenosis. L4-L5: Moderate diffuse disc bulge exacerbated by uncovering from anterolisthesis. There is moderate bilateral facet joint arthropathy. There is mild to moderate left and mild right neural foraminal stenosis. There appear to be narrowings of the subarticular zones with no demonstrated overt spinal canal stenosis centrally. L5-S1: Moderate diffuse disc bulge with posterior osseous ridging. There is moderate bilateral facet joint arthropathy. There is severe left worse than right neural foraminal stenosis. There is no demonstrated spinal canal stenosis. CT/CT lumbar spine wo IV con IMPRESSION: 1. No evidence of acute fracture or traumatic subluxation of the lumbar spine. 2. Moderate multilevel degenerative spondyloarthropathy of the lumbar spine as described in detail above. Most notably on this limited exam without intrathecal contrast, there appears to be narrowings of the subarticular zones at L4-L5 and L5-S1. Severe neural foraminal stenoses at L5-S1.
--- NOTE | ~2023-03-17 | CT_ITS ---
EXAMINATION: CT CHEST WITHOUT CONTRAST CLINICAL INFORMATION: Chest wall pain after fall COMPARISON: None available. TECHNIQUE: Multidetector volumetric CT imaging of the chest was done. Axial MIP volume rendering provided. Sagittal and coronal reformatted images were obtained. This CT examination was performed using dose optimization techniques as appropriate, variously including the following: *Automated exposure control *Adjustment of mA and/or kV according to patient size (this includes techniques or standardized protocols for targeted exams where dose is matched to indication/reason for exam; i.e. extremities or head) *Use of iterative reconstruction technique DLP: 189 mGy-cm FINDINGS: LUNGS: Peribronchial thickening is present. No infiltrates or suspicious lung masses are seen. Tiny perifissural lymph node is noted in the left lower lobe measuring 3 mm (8:207). Small punctate calcified granuloma present at the right lung base. MEDIASTINUM: The mediastinum is normal. CORONARY ARTERY CALCIFICATION: Mild PLEURA: There is no pleural effusion. No pleural mass or thickening. AXILLA: No lymphadenopathy. UPPER ABDOMEN: A small hiatal hernia is present. OSSEOUS STRUCTURES: Unremarkable. CT/CT chest wo IV con IMPRESSION: 1. No evidence of a traumatic injury in the chest. 2. Incidental note made of peribronchial thickening, small hiatal hernia and a few tiny pulmonary nodules. Fleischner guidelines were followed.
--- NOTE | ~2023-03-17 | XR_ITS ---
EXAMINATION: XR CHEST CLINICAL INFORMATION: Pain COMPARISON: None available. TECHNIQUE: 2 views of the chest were obtained. FINDINGS: The lungs are well-inflated. Heart size is normal. Prominent ascending aorta. No gross pleural effusion. Mild degenerative changes in the thoracic spine. Mild perihilar opacities, left greater than right, may represent mildly prominent vascularity versus inflammatory/infectious process. XR/XR chest 2V IMPRESSION: 1. Mild perihilar opacities, left greater than right, may represent mildly prominent vascularity versus inflammatory/infectious process. Correlation with clinical exam recommended. 2. Prominent ascending aorta. CT scan should be considered for further evaluation based on the clinical assessment.
[2023-03-17 12:26] VITALS: BP 134/68; PULSE 61; O2SAT 98
[2023-03-17 12:32] VITALS: BP 186/100; PULSE 77; RESP 19; TEMP 36.6; O2SAT 98; BMI 25.1
--- NOTE | 2023-03-17 12:38 | ED_ITS ---
HPI - General Adult General Chief complaint: Fall Stated complaint: fall Time Seen by Provider: 03/17/23 15:46 Source: patient, EMS, RN notes reviewed and old records reviewed Mode of arrival: EMS History of Present Illness HPI narrative: 57-year-old female with a past medical history of polyarthritis, chronic sinusitis, presenting to the ED via EMS complaining of right-sided low back and anterior chest wall pain s/p mechanical trip and fall around 11:00. States slipped on ice falling on to right buttock down 4 stairs. Denies head trauma or LOC. Admits when fell hitting buttock/back developed chest wall pain as well, denies direct injury/trauma to chest wall. Does report URI symptoms last week. Denies taking anticoagulation, headache, numbness/tingling, weakness, abdominal pain, nausea/vomiting, incontinence/retention Related Data Home Medications Medication Instructions Recorded Confirmed escitalopram oxalate 10 mg tablet 10 mg PO DAILY 04/09/21 12/15/22 Previous Rx's Medication Instructions Recorded ibuprofen 400 mg tablet 800 mg (2 x 400 mg) PO TID 30 days 02/21/21 #180 tabs acetaminophen 500 mg tablet 500 mg PO Q6H PRN pain #30 tabs 05/30/21 sodium chloride 0.65 % nasal spray 1 spray intranasal Q4H PRN nasal 08/18/21 aerosol (Saline Nasal) congestion #44 mL diclofenac sodium 1 % topical gel 2 g topical BID #100 grams 05/02/22 (Voltaren Arthritis Pain) ipratropium bromide 42 mcg (0.06 2 spray intranasal TID Nasal 06/03/22 %) nasal spray allergy 30 days #15 mL fluticasone propionate 50 1 spray intranasal DAILY for 07/31/22 mcg/actuation nasal allergies #16 mL spray,suspension imipramine HCl 10 mg tablet 10 mg PO BID 90 days #180 tabs 10/19/22 albuterol sulfate 90 mcg/actuation 2 puff inhalation Q6H PRN 01/06/23 aerosol inhaler shortness of breath or wheezing 30 days #6.7 grams tizanidine 2 mg tablet 2 mg PO BEDTIME PRN muscle 02/04/23 spasticity 30 days #30 tabs omeprazole 20 mg capsule,delayed 20 mg PO DAILY 90 days #90 caps 02/21/23 release metronidazole 0.75 % (37.5 mg/5 1 appful vaginal BEDTIME 5 days 02/27/23 gram) vaginal gel #70 grams cyclobenzaprine 10 mg tablet 10 mg PO TID PRN muscle spasm 5 03/17/23 days #15 tabs naproxen 500 mg tablet 500 mg PO BID PRN pain 7 days #14 03/17/23 tabs Allergies Allergy/AdvReac Type Severity Reaction Status Date / Time No Known Allergies Allergy Verified 03/17/23 12:34 [No Known Allergies*] Review of Systems Review of Systems: Constitutional: No Fever, No Chills ENT/Mouth:No Nasal Congestion, No sore throat, No Rhinorrhea, No Swallowing Difficulty Cardiovascular: No Chest Pain, No SOB Respiratory: No Cough Gastrointestinal: No Nausea, No Vomiting, No Abdominal pain Genitourinary: No Dysuria, No Urinary Frequency, No Hematuria, No Urinary Incontinence/retention Musculoskeletal: +joint pain, + Myalgias, + Joint Swelling Skin: No Skin Lesions, No rash Neuro: No Weakness, No Numbness, No Paresthesias, No head trauma, No LOC Yes all other systems are reviewed and are negative Constitutional: Constitutional: Reports as per HPI Neurologic: Denies Sensory deficit (Neuro) [facility] [place] Past Medical History Attestation statement: The following information was validated with the patient. Source: old records reviewed Onset Date is defined in the Problem List Problems that require an onset date and time if occurred within 24 hrs of arrival to the ED Aortic Dissection and Rupture; Neurologic impairment; Cardiopulmonary Arrest; Endotracheal Intubation; Insertion or Replacement of Mechanical Circulatory Assist Device Medical History Allergic rhinitis Nocturnal hypoxemia Blurry vision Polyarthritis Mild recurrent major depression Urge urinary incontinence Dry mouth Neck pain Numbness Chronic sinusitis Insomnia Herpes zoster delivery delivered Surgical History Hx of colonoscopy History of esophagogastroduodenoscopy (EGD) History of appendectomy Family History Family History Father HTN (hypertension) Mother HTN (hypertension) Sister HTN (hypertension) Brother No problems noted. Son No problems noted. Daughter No problems noted. Paternal Grandfather Colon cancer Social History Social History Household Members: Children Household Members Other:: grandchildren Housing: House Alcohol intake: never Patient Tobacco Use Status: Current someday Tobacco user Tobacco use type: Cigarette Cigarettes Per Day: 3 e-Cigarette/Vaping Use: Never Used Second Hand Smoke Exposure: No Substance Use Type: Marijuana Advance Directives: No Advance Directives Information Provided: No service: No Current occupational status: unemployed Cognitive needs: No Hearing needs: No Vision needs: Yes (glasses) Physical Exam ED Vital Signs: Vital Signs - 24 hr 03/17/23 12:32 03/17/23 16:48 Temperature 98 F 97.8 F Pulse Rate 77 65 Respiratory Rate 19 16 Blood Pressure 186/100 H 151/82 H Pulse Oximetry 98 94 Oxygen Delivery Method Room Air Room Air BMI result Body Mass Index 25.1 Const General: cooperative, healthy appearing and no acute distress Orientation/consciousness: patient oriented x3 Limitations: no limitations HENMT Head: Yes normal to inspection and Yes atraumatic Ears: hearing grossly normal bilaterally General nose exam: Normal external nose present Face and sinus: Yes normal facial exam Eyes General: appearance normal, both eyes and all related structures Pupils: Equal, round and reactive pupils present EOM: EOMs intact bilaterally Neck Neck: Yes normal visual inspection and Yes no meningeal signs Chest Chest palpation & inspection: normal inspection of the chest, no crepitus and tenderness (Anterior chest wall reproducing subjective complaint) Resp Effort & Inspection: normal respiratory effort and no respiratory distress Cardio Rate: regular rate GI Inspection: Yes normal to inspection Palpation (GI): Soft to palpation, nontender, no guarding and not rigid General: Yes no CVA tenderness Back/Spine/Pelvis Other: No midline cervical/thoracic/lumbar spinous step-off or deformity. +midline lumbar spinous tenderness to palpation. + bilateral lumbar MSK/paraspinal tenderness to palpation > right Back: no CVA tenderness Skin Rashes: no rashes Wounds: no wounds Neuro Other: Strength intact throughout. No saddle anesthesia. Sensation intact to light touch. Neurovascular intact distally General: patient oriented x3, tone normal, moves all extremities and no meningeal signs Cranial nerves: Yes CN's II-XII intact bilaterally and Yes Equal, round and reactive pupils present Gait exam (Neuro): Antalgic gait present Motor exam (neuro): 5 motor strength present throughout Sensory Exam: No Sensory deficit (Neuro) Extrem Other: pelvis stable General: Yes normal to inspection Course Course Course Narrative: RME: 57 yold female presents to the ED for low back pain and chest wall pain after slipping on ice outside and fell unto back and chest wall. patient denies head trauma and being on blood thinners. Xrays ordere 1558--XR lumbar spine 2-3V IMPRESSION: 1. Gwkbpeys-ce-yigndz degenerative disc disease most notable at L5-S1. 2. Facet arthritis in the lower lumbar spine. Additional imaging with CT scan or MRI should be considered for better visualization as these modalities are much more sensitive for detection of fracture or other underlying pathology. XR chest 2V IMPRESSION: 1. Mild perihilar opacities, left greater than right, may represent mildly prominent vascularity versus inflammatory/infectious process. Correlation with clinical exam recommended. 2. Prominent ascending aorta. CT scan should be considered for further evaluation based on the clinical assessment. > will obtain CT's for further eval -1899--ED care transferred to [facility] pending CT results. Dispo per results Reevaluation(s) Reevaluation #1: Chest CT negative for any signs of fracture or infiltrate indicating pneumonia. Negative for signs of hemothorax pneumothorax on CT scan. Lumbar CT shows degenerative arthritis with neuromonial stenoses. Patient given copy of imagines to patient. Time: 19:31 Medications Administered Discontinued Medications Generic Name Dose Route Start Last Admin Trade Name Freq PRN Reason Stop Dose Admin Cyclobenzaprine HCl 10 mg 03/17/23 16:14 03/17/23 16:33 Cyclobenzaprine Hcl 10 Mg Tablet PO 03/17/23 16:15 10 mg ONCE ONE Administration Ketorolac Tromethamine 30 mg 03/17/23 16:14 03/17/23 16:33 Ketorolac Tromethamine 30 Mg/Ml Vial IM 03/17/23 16:15 30 mg ONCE ONE Administration Oxycodone HCl 5 mg 03/17/23 16:14 03/17/23 16:33 Oxycodone Hcl Immed Release 5 Mg Tablet PO 03/17/23 16:15 5 mg ONCE ONE Administration Medical Decision Making Medical Decision Making MDM Narrative: 57-year-old female with a past medical history of polyarthritis, chronic sinusitis, presenting to the ED via EMS complaining of right-sided low back and anterior chest wall pain s/p mechanical trip and fall around 11:00AM. On exam vital signs stable, NAD, appears uncomfortable/in pain, tearful, ambulating with antalgic gait. + midline lumbar tenderness and paraspinal/MSK lumbar tenderness > right on exam. + reproducible anterior chest wall tenderness to palpation. No rash. No red flag symptoms. Concern for fracture vs MSK pain/strain vs herniated disc. Rule out pneumonia. Low suspicion for dissection, ACS/PE symptoms began with trauma/fall. Plan: X-rays ordered in triage, EKG Please refer to course for remaining clinical decision making, interpretation of labs/imaging results, and discussions with consultants and/or family members. Differential Diagnosis Differential Diagnoses: The differential diagnosis associated with the presentation includes As above Admission/Observation Consideration of admission/observation: Escalation of care including admission/observation considered Lab Data MDM Lab Attestation statement: I reviewed the patient's lab results. Labs: Lab Results 03/17/23 Range/Units 16:53 Urine Color Yellow Urine Appearance Cloudy Urine pH 8.5 (5.0-9.0) Ur Specific [place] 1.020 (1.005-1.025) Urine Protein Negative (Neg-Trace) mg/dL Urine Glucose (UA) Negative (Negative) mg/dL Urine Ketones Negative (Negative) mg/dL Urine Blood Negative (Negative) Urine Nitrite Negative (Negative) Ur Leukocyte Esterase Trace H (Negative) Urine RBC 0-2 (0-2) /HPF Urine WBC 0-5 (0-5) /HPF Ur Squamous Epith Cells 3-5 (0-2) /HPF Urine Bacteria None Seen (None Seen) Hyaline Casts 0-2 (0-2) /LPF Influenza Type A (PCR) NEGATIVE (Negative) Influenza Type B (PCR) NEGATIVE (Negative) RSV RNA Qual (PCR) NEGATIVE (Negative) SARS-CoV-2 RNA (RT-PCR) NEGATIVE (Negative) Independent Interpretation I performed an independent interpretation of an: EKG (My interpretation EKG normal sinus rhythm with sinus arrhythmia rate of 65. QRS 88. QTC 443. No STEMI) and Plain X-Ray Radiology Impression Discussion of test interpretation with radiology: I have reviewed the radiologist's reading. Independent Historian Clinical information obtained from an independent historian. History obtained from or confirmed by: EMS External Record Review External record reviewed: Inpatient record, Office record, Outpatient record, Prior outpatient labs, Prior outpatient radiology, Primary care record and [facility] ED record Tests considered The following testing was considered but not selected: As above Prescription Management I considered prescription management with: Pain Medication Discharge Plan Discharge Clinical Impression: Low back pain, Chest wall pain Patient Disposition: Home, Self-Care Instructions: Acute Low Back Pain (ED), Chest Wall Pain (ED) Additional Instructions: Return to the ED immediately for any rectal bleeding, vomiting blood, blood in stool, urinary/bowel incontinence, pain extremities, bloody urine, coughing up blood, or chest pain, shortness of breath, bluish black discoloration, chest pain inspiration, calf pain, leg swelling, or any other concerning symptoms. Prescriptions: New naproxen 500 mg tablet 500 mg PO BID PRN (Reason: pain) 7 Days Qty: 14 0RF cyclobenzaprine 10 mg tablet 10 mg PO TID PRN (Reason: muscle spasm) 5 Days Qty: 15 0RF Rx Instructions: alyssa effect is drowsiness. Do not take at work or while driving. No Action ibuprofen 400 mg tablet 800 mg PO TID 30 Days Qty: 180 1RF Saline Nasal 0.65 % aerosol,spray 1 spray intranasal Q4H PRN (Reason: nasal congestion) Qty: 44 0RF diclofenac sodium [Voltaren Arthritis Pain] 1 % gel 2 g topical BID Qty: 100 1RF Rx Instructions: apply to single elbow, wrist or hand; for hand includes palm/fingers/back of hand. Do not take with oral ibuprofen. fluticasone propionate 50 mcg/actuation spray,suspension 1 spray intranasal DAILY Qty: 16 1RF imipramine HCl 10 mg tablet 10 mg PO BID 90 Days Qty: 180 0RF albuterol sulfate 90 mcg/actuation HFA aerosol inhaler 2 puff inhalation Q6H PRN (Reason: shortness of breath or wheezing) 30 Days Qty: 6.7 1RF tizanidine 2 mg tablet 2 mg PO BEDTIME PRN (Reason: muscle spasticity) 30 Days Qty: 30 1RF Rx Instructions: start with 1/2 tab as medication can be sedating omeprazole 20 mg capsule,delayed release(DR/EC) 20 mg PO DAILY 90 Days Qty: 90 1RF metronidazole 0.75 % (37.5mg/5 gram) gel 1 appful vaginal BEDTIME 5 Days Qty: 70 0RF acetaminophen 500 mg tablet 500 mg PO Q6H PRN (Reason: pain) Qty: 30 0RF escitalopram oxalate 10 mg tablet 10 mg PO DAILY ipratropium bromide 42 mcg (0.06 %) spray,non-aerosol 2 spray intranasal TID 30 Days Qty: 15 0RF Rx Instructions: administer into each nostril before putting on the CPAP mask Referrals: [facility] [Provider Group] Sarah Martinez MD [Primary Care Provider] - 2 days Interventions: ED Discharge Assessment Last Done: 03/17/23 19:43 Discharge Date/Time: 03/17/23 19:44 Print Language: Nepali
[2023-03-17] MEDS: oxyCODONE HCl Immed Release 5 MG TABLET PO (16:33)
[2023-03-17] MEDS: Ketorolac Tromethamine 30 MG/ML VIAL IM (16:33)
[2023-03-17] MEDS: Cyclobenzaprine HCl 10 MG TABLET PO (16:33)
[2023-03-17 16:48] VITALS: BP 151/82; PULSE 65; RESP 16; TEMP 36.6; O2SAT 94
[2023-03-17 17:06] LABS: Appearance Urine Cloudy; Color Urine Yellow; Glucose Urine UA Negative (Negative); Leukocyte Esterase Urine Trace (Negative); Nitrite Urine Negative (Negative); PH 8.5 (5.0-9.0); UMIC TRIGGER UACC YES; Urine Blood Negative (Negative); Urine Ketones Negative (Negative); Urine Protein Negative (Neg-Trace)
--- NOTE | 2023-03-17 17:17 | ECG_ITS ---
Test Reason : GENERAL MEDICAL Blood Pressure : / mmHG Vent. Rate : 065 BPM Atrial Rate : 065 BPM P-R Int : 170 ms QRS Dur : 088 ms QT Int : 426 ms P-R-T Axes : 053 023 041 degrees QTc Int : 443 ms Normal sinus rhythm with sinus arrhythmia Cannot rule out Anterior infarct , age undetermined Abnormal ECG When compared with ECG of 03-APR-2017 15:41, No significant change was found Referred By: Bailey Montano Electronically Signed By:STEPHEN HOLLIS MD
[2023-03-17 17:39] LABS: Bacteria Urine None Seen (None Seen); Hyaline Casts Urine 0-2 /LPF (0-2); RBC Urine 0-2 /HPF (0-2); WBC Urine 0-5 /HPF (0-5)
[2023-03-17 17:44] LABS: Influenza A PCR NEGATIVE (Negative); Influenza B PCR NEGATIVE (Negative); Resp Syncy Virus RNA Qual PCR NEGATIVE (Negative); SARS COV2 PCR INHOUSE NEGATIVE (Negative)
== END 2023-03-17 19:44 | disposition home or self-care (01) ==
PROVIDERS: Physician Assistant; Emergency Provider Student in an Organized Health Care Education/Training Program; PCP Internal Medicine
DX: S39.92XA Unspecified injury of lower back, initial encounter (principal); R07.89 Other chest pain; M54.50 Low back pain, unspecified; W01.0XXA Fall on same level from slipping, tripping and stumbling without subsequent striking against object, initial encounter; Y93.9 Activity, unspecified; Y92.9 Unspecified place or not applicable; Y99.9 Unspecified external cause status; Z11.52 Encounter for screening for COVID-19; Z20.822 Contact with and (suspected) exposure to COVID-19; Z79.899 Other long term (current) drug therapy
CPT/HCPCS: 0241U; 71046; 71250; 72100; 72131; 81001; 93005; 96372; 99284; J1885

== ENCOUNTER → 2023-03-17 17:17 | Outpatient (BNV) | payer OTHER, SELFPAY | PROVIDERS: Emergency Provider Student in an Organized Health Care Education/Training Program; PCP Internal Medicine; Visit Provider Internal Medicine Cardiovascular Disease | DX: R94.31 Abnormal electrocardiogram [ECG] [EKG] (principal) | CPT/HCPCS: 93010 ==

== ENCOUNTER 2023-03-26 15:06 | Outpatient (AMB) | payer OTHER, SELFPAY ==
--- NOTE | 2023-03-26 15:18 | MHC.OFFVIS ---
Intake Intake Visit Reasons: Colposcopy Allergies No Known Allergies [No Known Allergies*] Allergy (Verified 03/17/23 12:34) HPI HPI Comments History of Present Illness Details Presenting for colposcopy for ascus/HPV on Pap smear PFS Medical History Allergic rhinitis Nocturnal hypoxemia Blurry vision Polyarthritis Mild recurrent major depression Urge urinary incontinence Dry mouth Neck pain Numbness Chronic sinusitis Insomnia Herpes zoster delivery delivered Surgical History Hx of colonoscopy History of esophagogastroduodenoscopy (EGD) History of appendectomy Family History Father HTN (hypertension) Mother HTN (hypertension) Sister HTN (hypertension) Brother No problems noted. Son No problems noted. Daughter No problems noted. Paternal Grandfather Colon cancer Social History Household Members: Children Household Members Other:: grandchildren Housing: House Alcohol intake: never Patient Tobacco Use Status: Current someday Tobacco user Tobacco use type: Cigarette Cigarettes Per Day: 3 e-Cigarette/Vaping Use: Never Used Second Hand Smoke Exposure: No Substance Use Type: Marijuana service: No Current occupational status: unemployed Cognitive needs: No Hearing needs: No Vision needs: Yes (glasses) Office Procedures Colposcopy Before the procedure was started discussed with the patient the procedure, alternatives & all the risks associated with the procedure (bleeding, infection, injury to vagina, bladder, vessels, possible need for transfusion with all its risks) then patient signed the consent Pap smear = ascus/HPV positive Speculum inserted, acetic acid used Colposcopy done Transformation zone seen, acetowhite lesions identified at 5+6+7+10+12+1 o?clock, cervical biopsies taken from 5+6+7+10+12+1 o?clock, ECC done afterwards. Vaginoscopy of the upper vagina showed no evidence of any aceto-white lesions Monsel solution used for hemostasis. The patient tolerated well . At the end the patient was instructed to call if temp>100.4, abdominal pain, n/v, bleeding; The patient was given the following instructions: nothing per vagina, no intercourse or bath tub use. All questions answered the patient verbalized understanding. Instructed the patient to make an appointment in 2 weeks for follow-up This note was generated with a voice recognition program. Some errors may have been overlooked during the review of this note. Sometimes these errors may affect the content or meaning of a given sentence. [id number] of cervix including upper vagina with biopsy and ECC Procedure code (CPT) selection complete Assessment & Plan Assessment & Plan (1) ASCUS with positive high risk HPV cervical: Code(s): R87.610 - Atypical squamous cells of undetermined significance on cytologic smear of cervix (ASC-US); R87.810 - Cervical high risk human papillomavirus (HPV) DNA test positive Plan: Colposcopy done, see procedure note Orders: Orders AMB Colposcopy Today R87.610 - Atypical squamous cells of undetermined significance on cytologic smear of cervix (ASC-US), R87.810 - Cervical high risk human papillomavirus (HPV) DNA test positive Coding Level of Care Code Procedure Only Diagnoses ASCUS with positive high risk HPV cervical R87.610; R87.810 CPT Codes Colposcopy - CPT: 80716-Wzcbijatg of cervix including upper vagina with biopsy and ECC ([id number])
== END 2023-03-26 15:43 | disposition home or self-care (01) ==
PROVIDERS: PCP Internal Medicine; Visit Provider Obstetrics & Gynecology
DX: R87.610 Atypical squamous cells of undetermined significance on cytologic smear of cervix (ASC-US) (principal); R87.810 Cervical high risk human papillomavirus (HPV) DNA test positive
CPT/HCPCS: 57454

== ENCOUNTER 2023-03-26 15:06 | Outpatient (REF) | payer OTHER, SELFPAY | END 2023-03-26 15:07 | disposition home or self-care (01) | LOC: HO.LNP 15:06 | PROVIDERS: PCP Internal Medicine; Visit Provider Obstetrics & Gynecology | DX: R87.610 Atypical squamous cells of undetermined significance on cytologic smear of cervix (ASC-US) (principal); R87.810 Cervical high risk human papillomavirus (HPV) DNA test positive | CPT/HCPCS: 57454; 88305 ==

== ENCOUNTER 2023-03-31 15:56 | Outpatient (REF) | payer OTHER, SELFPAY ==
--- NOTE | ~2023-03-31 | XR_ITS ---
EXAMINATION: XR CHEST CLINICAL INFORMATION: Upper respiratory tract infection unspecified COMPARISON: 03/17/2023 TECHNIQUE: Frontal view of the chest was obtained. FINDINGS: Lungs clear. Heart and pulmonary vessels normal. XR/XR chest 1V IMPRESSION: No active disease.
== END 2023-03-31 15:57 | disposition home or self-care (01) ==
LOC: HO.XRAY 15:56
PROVIDERS: Absent Provider Internal Medicine; PCP Internal Medicine; Visit Provider Internal Medicine
DX: G47.33 Obstructive sleep apnea (adult) (pediatric) (principal); G47.34 Idiopathic sleep related nonobstructive alveolar hypoventilation; J30.9 Allergic rhinitis, unspecified; Z79.899 Other long term (current) drug therapy
CPT/HCPCS: 71045; 99212

== ENCOUNTER 2023-03-31 15:56 | Outpatient (AMB) | payer OTHER, SELFPAY ==
[2023-03-31 16:03] VITALS: BP 108/78; PULSE 86; O2SAT 96; BMI 24.9
--- NOTE | 2023-03-31 16:03 | A.OFFVIS_ITS ---
Intake Vital Signs 03/31/23 16:03 Height 5 ft 7 in Weight 159 lb BMI 24.9 BP 108/78 Blood Pressure Location Lt brachial Position Sitting Pulse 86 Pulse Source Pulse Oximeter Pulse Oximetry (%) 96 Oxygen Delivery Method Room Air Intake Visit Reasons: Obstructive sleep apnea Intake Note: pt is here for follow up and has been sick since new years, she was very sick with green phlegm with terrible smell, just finished antiobiotics, bit better still congested. She also stated she fell a few weeks ago, chest is hurting and tight not sure if she is still sick or due to a fall. As of the c-pap use she states she cannot use cpap, due to illness but has full intention of keep trying. It Sales Consultant Required: Yes It Sales Consultant Name: Lara Allergies No Known Allergies [No Known Allergies*] Allergy (Verified 03/31/23 16:28) Medication List - Last Reconciled 03/31/23 by Whit Guzman MD acetaminophen 500 mg PO Q6H PRN albuterol sulfate 90 mcg/actuation 2 puffs inhalation Q6H PRN 30 days amoxicillin 500 mg PO BID 5 days cyclobenzaprine 10 mg PO TID PRN 5 days diclofenac sodium 1% (Voltaren Arthritis Pain) 2 grams topical BID escitalopram oxalate 10 mg PO DAILY fluticasone propionate 50 mcg/actuation 1 spray intranasal DAILY ibuprofen 800 mg (2 x 400 mg) PO TID 30 days imipramine HCl 10 mg PO BID 90 days ipratropium bromide 2 sprays intranasal TID 30 days metronidazole 0.75%(37.5mg/5gram) 1 appful vaginal BEDTIME 5 days naproxen 500 mg PO BID PRN 7 days omeprazole 20 mg PO DAILY 90 days sodium chloride 0.65% (Saline Nasal) 1 spray intranasal Q4H PRN tizanidine 2 mg PO BEDTIME PRN 30 days Do you need a note to return to daycare/school/sports/work: No HPI Obstructive sleep apnea HPI Details 57 years old Algerian-speaking female is here for follow-up. She has the nasal pillows, for her CPAP, which she likes better than fullface mask. However she has not been able to use the CPAP, due to her claims that she has been sick and she has had sinus infection. Recently treated with a course of amoxicillin and now she feels better. She has only minimal nasal congestion at this time, denies any cough or wheezing. She says that she definitely wants to try to use the CPAP. FORMERLY [facility], [facility] Medical History Allergic rhinitis Nocturnal hypoxemia Blurry vision Polyarthritis Mild recurrent major depression Urge urinary incontinence Dry mouth Neck pain Numbness Chronic sinusitis Insomnia Herpes zoster delivery delivered Surgical History Hx of colonoscopy History of esophagogastroduodenoscopy (EGD) History of appendectomy Family History Father HTN (hypertension) Mother HTN (hypertension) Sister HTN (hypertension) Brother No problems noted. Son No problems noted. Daughter No problems noted. Paternal Grandfather Colon cancer Social History Household Members: Children Household Members Other:: grandchildren Housing: House Alcohol intake: never Patient Tobacco Use Status: Current someday Tobacco user Tobacco use type: Cigarette Cigarettes Per Day: 3 e-Cigarette/Vaping Use: Never Used Second Hand Smoke Exposure: No Substance Use Type: Marijuana service: No Current occupational status: unemployed Cognitive needs: No Hearing needs: No Vision needs: Yes (glasses) Review of Systems Const All systems reviewed & are unremarkable except as noted in HPI and below Eyes Reports no additional complaints ENT Reports nasal congestion, Reports nasal discharge and Reports nasal obstruction Card Reports no additional complaints Resp Reports no additional complaints GI Reports heartburn (GERD symptoms being treated with omeprazole) Reports no additional complaints Musc Reports myalgias and Reports arthralgias Skin/Breast Reports system reviewed and no additional complaints, except as documented Neuro Reports no additional complaints Psych Reports depression (Treated with escitalopram 10 mg daily) Endo Reports no additional complaints Bill/Lymph Reports no additional complaints Physical Exam Vital Signs: Last Vital Signs Pulse 86 03/31/23 16:03 BP 108/78 03/31/23 16:03 Pulse Ox 96 03/31/23 16:03 Oxygen Delivery Method Room Air 03/31/23 16:03 BMI result Body Mass Index 24.9 Const General: healthy appearing, comfortable, no acute distress, alert and awake Orientation/consciousness: patient oriented x3 HEENT Other: She has only mild nasal congestion at this time, both nasal cavities seem to be patent, no significant mucus noted. Head: Yes normal to inspection General nose exam: No nasal polyps present, No nasal discharge present and Abnormal mucous membranes and turbinates present (Marked hypertrophy of the nasal turbinates with the partial obliteration of) Face and sinus: Yes sinuses nontender Mouth: oropharynx normal Throat: Yes posterior oropharynx normal Eyes General: appearance normal, both eyes and all related structures Neck Neck: Yes normal visual inspection, Yes no lymphadenopathy, Yes trachea midline and Yes no JVD Thyroid: Thyroid normal Chest Chest palpation & inspection: normal inspection of the chest, normal palpation of entire chest wall and no tenderness Resp Effort & Inspection: normal respiratory effort Auscultation: no crackles, no rales and no wheezes Cardio Palpation: normal PMI Rate: regular rate Rhythm: regular rhythm Heart sounds: no gallops and no murmurs GI Palpation (GI): Soft to palpation, nontender, No hepatosplenomegaly present and no masses Auscultation: normal bowel sounds Back/Spine/Pelvis Thoracic/Lumbar Spine: thoracic and lumbar spine normal to inspection Skin General skin exam: no rashes or lesions noted Neuro General: patient oriented x3 and no focal motor deficits Cranial nerves: Yes CN's II-XII intact bilaterally Extrem General: Yes normal to inspection, Yes no clubbing, cyanosis or edema and Yes no calf tenderness Psych Appearance: grossly normal and well kempt Speech and movement: Normal speech and movement present Results Reviewed Results Reviewed: Compliance report for the last 30 nights is reviewed and she has used only for 1 night that also for a few minutes so basically she has been non compliant Assessment & Plan Assessment & Plan (1) JEREMIAH (obstructive sleep apnea): Comment: PATIENT IS OF NORMAL WEIGHT. SHE DOES HAVE RATHER SEVERE DEGREE OF OBSTRUCTIVE SLEEP APNEA. THIS SEEMS TO BE SECONDARY TO RETROGANTHIA AND CHRONIC ADELE- FACIAL MALFORMATION. EXPLAINED ABOUT THE FINDINGS OF THE SLEEP STUDY. TX: This patient has tried to use CPAP with full face mask, but cannot use due to claustrophobia . Now she has nasal mask which she likes. but still has not started using it regularly Code(s): G47.33 - Obstructive sleep apnea (adult) (pediatric) Plan: Had a good discussion about need to use CPAP regularly otherwise we will have to look into alternative modes of treatment. She expresses her full intention to try to use the CPAP. I also explained to her that she may start putting the CPAP on during the daytime for 1 or 2 hours to get used to it. (2) Nocturnal hypoxemia: Comment: NOCTURNAL HYPOXEMIA IS MINIMAL AND IS EXPECTED TO RESOLVE WITH THE USE OF CPAP. SHE DOES NOT HAVE ANY UNDERLYING LUNG DISEASE. Code(s): G47.34 - Idiopathic sleep related nonobstructive alveolar hypoventilation (3) Allergic rhinitis: Comment: Chronic nasal congestion and blockage seems to be secondary to allergic rhinitis. Recently has been treated with a course of amoxicillin and her nasal congestion/obstruction has definitely improved. Code(s): J30.9 - Allergic rhinitis, unspecified Plan: Continue to use Flonase-51 spray in each nostril daily. May also do saline nasal spray Q 4-6 hours p.r.n. Plan as above Coding Level of Care Code Est Pt Level 3 (62683) Diagnoses JEREMIAH (obstructive sleep apnea) G47.33 Nocturnal hypoxemia G47.34 Allergic rhinitis J30.9
== END 2023-03-31 16:21 | disposition home or self-care (01) ==
PROVIDERS: PCP Internal Medicine; Visit Provider Internal Medicine
DX: G47.33 Obstructive sleep apnea (adult) (pediatric) (principal); G47.34 Idiopathic sleep related nonobstructive alveolar hypoventilation; J30.9 Allergic rhinitis, unspecified
CPT/HCPCS: 99213

== ENCOUNTER 2023-04-20 15:24 | Outpatient (AMB) | payer OTHER, SELFPAY ==
--- NOTE | 2023-04-20 15:24 | A.OFFVIS_ITS ---
Intake Intake Visit Reasons: colpo results Search Engine Optimization Manager Required: Yes Search Engine Optimization Manager Language: General Helper Name: Kari [phone], Information Interpreted: non-clinical & clinical Allergies No Known Allergies [No Known Allergies*] Allergy (Verified 04/20/23 15:25) HPI HPI Comments History of Present Illness Details The patient is scheduled tele health visit post colpo for follow-up. The patient is doing well with no complaints. The pathology showed the following: A. Endocervix, curettage: Inflamed endocervical and squamous mucosa reactive changes; mucoinflammatory material. B. Cervix, 1 o'clock, biopsy: Inflamed squamous mucosa and endocervical epithelium with reactive changes. C. Cervix, 5 o'clock, biopsy: Inflamed cervical transformation zone mucosa with reactive changes. D. Cervix, 6 o'clock, biopsy: Inflamed squamous and endocervical mucosa with reactive changes. E. Cervix, 7 o'clock, biopsy: Scant superficial strips of inflamed squamous and endocervical epithelium with reactive changes. F. Cervix, 10 o'clock, biopsy: Inflamed squamous and endocervical epithelium with reactive changes. G. Cervix, 12 o'clock, biopsy: Inflamed squamous mucosa with reactive changes; no endocervical epithelium identified FORMERLY [facility] Medical History Allergic rhinitis Nocturnal hypoxemia Blurry vision Polyarthritis Mild recurrent major depression Urge urinary incontinence Dry mouth Neck pain Numbness Chronic sinusitis Insomnia Herpes zoster delivery delivered Surgical History Hx of colonoscopy History of esophagogastroduodenoscopy (EGD) History of appendectomy Family History Father HTN (hypertension) Mother HTN (hypertension) Sister HTN (hypertension) Brother No problems noted. Son No problems noted. Daughter No problems noted. Paternal Grandfather Colon cancer Social History Household Members: Children Household Members Other:: grandchildren Housing: House Alcohol intake: never Patient Tobacco Use Status: Current someday Tobacco user Tobacco use type: Cigarette Cigarettes Per Day: 3 e-Cigarette/Vaping Use: Never Used Second Hand Smoke Exposure: No Substance Use Type: Marijuana service: No Current occupational status: unemployed Cognitive needs: No Hearing needs: No Vision needs: Yes (glasses) Review of Systems Const All systems reviewed & are unremarkable except as noted in HPI and below Reports as per HPI and Reports no additional complaints GI Reports no additional complaints Reports no additional complaints Assessment & Plan Assessment & Plan (1) ASCUS with positive high risk HPV cervical: Code(s): R87.610 - Atypical squamous cells of undetermined significance on cytologic smear of cervix (ASC-US); R87.810 - Cervical high risk human papillomavirus (HPV) DNA test positive Plan: Discussed with the patient the pathology results of the colposcopy biopsies & endocervical curettage ( negative). Discussed with the patient the sensitivity specificity, positive and negative predictive value in detecting cervical cancer in addition discussed the regression, persistence and progression rates. Recommended co-testing in 12 months, if cytology and or HPV are abnormal will proceed was colposcopy biopsy and endocervical curettage. Instructions given to the patient to schedule a co test appointment in 1 year. All questions answered the patient verbalized understanding. I spent a total of 20 minutes reviewing the chart, talking to the patient via video and documenting in the medical record. Telehealth Telehealth Location of provider rendering services: practice address Location of patient: address on file Patient Identification confirmed using: Name, : Yes Telehealth method: video Patient verbally consented to treatment: Yes Patient verbally consented to billing insurance company: Yes Patient informed of any privacy concerns related to visit: Yes Coding Level of Care Code Tele Est Pt Level 3 (33002) Diagnoses ASCUS with positive high risk HPV cervical R87.610; R87.810
== END 2023-04-20 15:51 | disposition home or self-care (01) ==
LOC: HO.HWS 15:24
PROVIDERS: PCP Internal Medicine; Visit Provider Obstetrics & Gynecology
DX: R87.610 Atypical squamous cells of undetermined significance on cytologic smear of cervix (ASC-US) (principal); R87.810 Cervical high risk human papillomavirus (HPV) DNA test positive
CPT/HCPCS: 99213

== ENCOUNTER → 2023-04-20 15:24 | Outpatient (BNVA) | payer OTHER, SELFPAY | PROVIDERS: PCP Internal Medicine; Visit Provider Obstetrics & Gynecology ==

== ENCOUNTER 2023-05-08 14:47 | Outpatient (AMB) | payer OTHER, SELFPAY ==
--- NOTE | 2023-05-08 14:46 | A.OFFVIS_ITS ---
Intake Vital Signs 05/08/23 14:50 Height 5 ft 7 in Weight 162 lb 11.218 oz BMI 25.5 BP 112/64 Blood Pressure Location Rt brachial Position Sitting Pulse 85 Pulse Source Pulse Oximeter Pulse Oximetry (%) 97 Intake Visit Reasons: Polyarthritis Intake Note: Pt last seen by Poppy on 07/08/22 presents today for follow up. Also follows with pain mgmt. Reports fall in March and has right sided back pain. Also reports pain and swelling in bl knees and hands; tingling and numbing. 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 Electroslag Name: Ryan [id number] Accompanied by: Self / Same As Patient Allergies No Known Allergies [No Known Allergies*] Allergy (Verified 05/08/23 14:53) Medication List - Last Reconciled 05/08/23 by Daniel Alberts MD acetaminophen 500 mg PO Q6H PRN albuterol sulfate 90 mcg/actuation 2 puffs inhalation Q6H PRN 30 days cyclobenzaprine 10 mg PO TID PRN 5 days diclofenac sodium 1% (Voltaren Arthritis Pain) 2 grams topical BID escitalopram oxalate 10 mg PO DAILY fluticasone propionate 50 mcg/actuation 1 spray intranasal DAILY ibuprofen 800 mg (2 x 400 mg) PO TID 30 days imipramine HCl 10 mg PO BID 90 days ipratropium bromide 2 sprays intranasal TID 30 days metronidazole 0.75%(37.5mg/5gram) 1 appful vaginal BEDTIME 5 days naproxen 500 mg PO BID PRN 7 days omeprazole 20 mg PO DAILY 90 days sodium chloride 0.65% (Saline Nasal) 1 spray intranasal Q4H PRN tizanidine 2 mg PO BEDTIME PRN 30 days HPI HPI Comments History of Present Illness Details 57-year-old female with erosive hand OA returns for follow-up. She states that she has doing a little worse. She has been having pain in her fingertips associated with numbness, she has morning stiffness of her hands, difficulty making a fist. She also has bilateral medial knee pain worse with walking. She uses Tylenol 2 to 3 times a week and naproxen 2 to 3 times a week as needed for joint pain. She uses Kun-Ragland cream on affected joints. She has not tried Voltaren gel in the past. [facility] History Allergic rhinitis Nocturnal hypoxemia Blurry vision Polyarthritis Mild recurrent major depression Urge urinary incontinence Dry mouth Neck pain Numbness Chronic sinusitis Insomnia Herpes zoster delivery delivered Surgical History Hx of colonoscopy History of esophagogastroduodenoscopy (EGD) History of appendectomy Family History Father HTN (hypertension) Mother HTN (hypertension) Sister HTN (hypertension) Brother No problems noted. Son No problems noted. Daughter No problems noted. Paternal Grandfather Colon cancer Social History Household Members: Children Household Members Other:: grandchildren Housing: House Alcohol intake: never Patient Tobacco Use Status: Current someday Tobacco user Tobacco use type: Cigarette Cigarettes Per Day: 3 e-Cigarette/Vaping Use: Never Used Second Hand Smoke Exposure: No Substance Use Type: Marijuana service: No Current occupational status: unemployed Cognitive needs: No Hearing needs: No Vision needs: Yes (glasses) Review of Systems Musc Reports arthralgias, Reports numbness and Reports stiffness Neuro Reports numbness Physical Exam Vital Signs: Last Vital Signs Pulse 85 05/08/23 14:50 BP 112/64 05/08/23 14:50 Pulse Ox 97 05/08/23 14:50 BMI result Body Mass Index 25.5 Const General: cooperative, healthy appearing and comfortable Nutritional Appearance: average body habitus Orientation/consciousness: patient oriented x3 Limitations: no limitations HEENT Head: Yes normocephalic and Yes atraumatic Resp Effort & Inspection: normal respiratory effort and able to speak in complete sentences Skin General skin exam: no rashes or lesions noted Neuro General: patient oriented x3 Extrem Other: Significant osteoarthritic changes of both hands with prominent tender Giselle's and Heberden's nodes Mild right 1st CMC joint tenderness Negative Tinel sign bilaterally Bilateral knee pain with full flexion and extension Assessment & Plan Assessment & Plan (1) Erosive osteoarthritis of hands, bilateral: Code(s): M15.4 - Erosive (osteo)arthritis Plan: Due to current flare of hand OA. Advised patient to take naproxen daily for 2 weeks then use sparingly. Continue using Tylenol. Advised patient to consider buying a paraffin wax machine (2) Bilateral primary osteoarthritis of knee: Code(s): M17.0 - Bilateral primary osteoarthritis of knee Plan: OTC Voltaren gel trial Plan I spent 18 minutes reviewing patient's chart, evaluating patient, counseling patient and documenting in the chart Coding Level of Care Code Est Pt Level 3 (88566) Diagnoses Erosive osteoarthritis of hands, bilateral M15.4 Bilateral primary osteoarthritis of knee M17.0
[2023-05-08 14:50] VITALS: BP 112/64; PULSE 85; O2SAT 97; BMI 25.5
== END 2023-05-08 15:16 | disposition home or self-care (01) ==
PROVIDERS: PCP Internal Medicine; Visit Provider Student in an Organized Health Care Education/Training Program
DX: M15.4 Erosive (osteo)arthritis (principal); M17.0 Bilateral primary osteoarthritis of knee
CPT/HCPCS: 99213

== ENCOUNTER → 2023-05-08 14:47 | Outpatient (BNVA) | payer OTHER, SELFPAY | PROVIDERS: PCP Internal Medicine; Visit Provider Student in an Organized Health Care Education/Training Program | DX: M15.4 Erosive (osteo)arthritis (principal); M17.0 Bilateral primary osteoarthritis of knee | CPT/HCPCS: 99212 ==

== ENCOUNTER 2023-06-11 09:24 | Outpatient (REF) | payer OTHER, SELFPAY ==
[2023-06-11 10:23] LABS: Influenza A PCR NEGATIVE (Negative); Influenza B PCR NEGATIVE (Negative); Resp Syncy Virus RNA Qual PCR NEGATIVE (Negative); SARS COV2 PCR INHOUSE NEGATIVE (Negative)
== END 2023-06-11 09:25 | disposition home or self-care (01) ==
LOC: HO.LAB 09:24
PROVIDERS: PCP Internal Medicine; Visit Provider Internal Medicine
DX: Z11.52 Encounter for screening for COVID-19 (principal); R09.89 Other specified symptoms and signs involving the circulatory and respiratory systems
CPT/HCPCS: 0241U

== ENCOUNTER 2023-07-23 14:40 | Outpatient (REF) | payer OTHER, SELFPAY ==
--- NOTE | ~2023-07-23 | MM_ITS ---
EXAMINATION: MM SCREENING DIGITAL BREAST TOMOSYNTHESIS, BILATERAL CLINICAL INFORMATION: Screening. Asymptomatic. COMPARISON: Mammography: This study is compared with prior exams dating back to 2022. TECHNIQUE: Digital breast tomosynthesis is performed in both the craniocaudal and mediolateral oblique views along with computer-aided detection (CAD). Synthesized 2D images are generated from the tomosynthesis. FINDINGS: The breasts are heterogeneously dense, which may obscure small masses (ACR BI-RADS breast composition Category c). There are no significant masses, abnormal calcifications, or other abnormalities. MM/MM tomosynthesis screening BI IMPRESSION: No mammographic evidence of malignancy. ASSESSMENT: BI-RADS BI-RADS 1 - Negative RECOMMENDATION: Routine annual mammography screening. 1 year F/U This examination should not preclude the clinical evaluation of a suspicious palpable abnormality. This patient's information was entered into a reminder system with a target due date for their next mammogram.
== END 2023-07-23 14:41 | disposition home or self-care (01) ==
LOC: HO.MAMMO 14:40
PROVIDERS: PCP Internal Medicine; Visit Provider Internal Medicine
DX: Z12.31 Encounter for screening mammogram for malignant neoplasm of breast (principal)
CPT/HCPCS: 77063; 77067

== ENCOUNTER → 2023-07-23 14:45 | Outpatient (BNV) | payer OTHER, SELFPAY | PROVIDERS: PCP Internal Medicine; Visit Provider Radiology Diagnostic Radiology | DX: Z12.31 Encounter for screening mammogram for malignant neoplasm of breast (principal) | CPT/HCPCS: 77063; 77067 ==

== ENCOUNTER 2023-10-06 07:02 | Outpatient (REF) | payer OTHER, SELFPAY ==
[2023-10-06 07:24] LABS: MANUAL DIFF FLAG NO
[2023-10-06 08:02] LABS: Basophils Absolute Auto 0.1 X10*3/uL (0.0-0.2); Basophils Percent Auto 0.9 % (0-2); Eosinophils Absolute Auto 0.3 X10*3/uL (0.0-0.4); Eosinophils Percent Auto 3.9 % (0-4); Hematocrit 42.2 % (37.0-47.0); Hemoglobin 13.4 g/dl (12.0-16.0); Imm Gran Abs Auto 0.05 X10*3/uL (0.00-0.03); Imm Gran Pct Auto 0.8 % (0.0-0.4); Lymphocytes Absolute Auto 2.6 X10*3/uL (1.2-4.9); Lymphocytes Percent Auto 38.6 % (20-40); Mean Corpuscular HGB Conc 31.8 g/dl (31.0-35.0); Mean Corpuscular Hemoglobin 27.8 pg (27.0-33.0); Mean Corpuscular Volume 87.6 fL (80.0-98.0); Monocytes Absolute Auto 0.5 X10*3/uL (0.1-1.2); Neutrophils Absolute Auto 3.2 x10*3/uL (2.0-8.3); Neutrophils Percent Auto 47.8 % (45-73); Platelet Count 317 X10*3/uL (160-400); Red Blood Count 4.82 X10*6/uL (4.20-5.50); Red Cell Distribution Width 13.4 % (11.0-16.0); White Blood Count 6.6 X10*3/uL (4.8-10.8)
[2023-10-06 08:33] LABS: Alanine Aminotransferase 26 U/L (0-31); Albumin Level 4.4 g/dL (3.5-5.0); Alkaline Phosphatase 134 U/L (39-117); Anion Gap 12 (12-20); Aspartate Amino Transferase 25 U/L (5-31); Bilirubin Total 0.2 mg/dL (0.0-1.0); Blood Urea Nitrogen 12 mg/dL (9-16); Calcium 9.9 mg/dL (8.4-10.2); Carbon Dioxide 26 mmol/L (22-29); Chloride 109 mmol/L (96-108); Cholesterol 239 mg/dL (<200); Estimated Glomerular Filt Rate > 60; Glucose Fasting 104 mg/dL (60-99); HDL Cholesterol 48 mg/dL (>40); LDL Cholesterol Calculated 159 mg/dL (<100); Potassium 3.4 mmol/L (3.3-5.1); Sodium 144 mmol/L (135-145); Total Protein 7.8 g/dL (6.5-8.0); Triglycerides 160 mg/dL (<150)
[2023-10-06 08:51] LABS: Vitamin D 25-OH Total 16.8 ng/mL (>30)
[2023-10-06 09:31] LABS: Influenza A PCR NEGATIVE (Negative); Influenza B PCR NEGATIVE (Negative); Resp Syncy Virus RNA Qual PCR NEGATIVE (Negative); SARS COV2 PCR INHOUSE NEGATIVE (Negative)
== END 2023-10-06 07:03 | disposition home or self-care (01) ==
LOC: HO.LAB 07:02
PROVIDERS: PCP Internal Medicine; Visit Provider Internal Medicine
DX: R09.89 Other specified symptoms and signs involving the circulatory and respiratory systems (principal); E55.9 Vitamin D deficiency, unspecified; D64.9 Anemia, unspecified; R40.0 Somnolence; E78.5 Hyperlipidemia, unspecified
CPT/HCPCS: 0241U; 80053; 80061; 82306; 85025

== ENCOUNTER 2023-10-07 13:57 | Outpatient (AMB) | payer OTHER, SELFPAY ==
--- NOTE | 2023-10-07 13:59 | A.OFFPC_ITS ---
Vital Signs 10/07/23 14:01 Height 5 ft 7 in Weight 159 lb BMI 24.9 BP 122/80 Blood Pressure Location Lt brachial Position Sitting Intake Visit Reasons: feeling unwell x 2 weeks. 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 Accompanied by: Self / Same As Patient Allergies No Known Allergies [No Known Allergies*] Allergy (Verified 10/07/23 14:19) Medication List - Last Reconciled 10/07/23 by Sarah Bonilla MD acetaminophen 500 mg PO Q6H PRN albuterol sulfate 90 mcg/actuation 2 puffs inhalation Q6H PRN 30 days cetirizine (All Day Allergy (cetirizine)) 10 mg PO DAILY PRN 90 days cholecalciferol (vitamin D3) 50 mcg PO DAILY 90 days cyclobenzaprine 10 mg PO TID PRN 5 days diclofenac sodium 1% (Voltaren Arthritis Pain) 2 grams topical BID dicyclomine 10 mg PO QID escitalopram oxalate 10 mg PO DAILY fluticasone propionate 50 mcg/actuation 1 spray intranasal DAILY ibuprofen 800 mg (2 x 400 mg) PO TID 30 days imipramine HCl 10 mg PO BID 90 days ipratropium bromide 2 sprays intranasal TID 30 days naproxen 250 mg (1/2 x 500 mg) PO BID PRN 7 days omeprazole 20 mg PO DAILY 90 days tizanidine 2 mg PO BEDTIME PRN 30 days Tobacco use date assessed: 10/07/23 Dental Screening Dental Screen Date: 10/07/23 Did you have a dental visit in the last 12 months?: No Did you have a dental problem in the last 6 months where you did not have access to dental care?: No Was dental information given to patient?: Patient has dentist HPI HPI Comments History of Present Illness Details This is a 58-year-old female with chronic sinusitis, mild recurrent major depression, bilateral knee osteoarthritis and GERD that comes today for follow-up on her conditions. Had an upper respiratory infection that was relieved by amoxicillin. On Flonase for chronic sinusitis. On escitalopram for her depression which has been stable. GERD stable with PPIs. I sent ibuprofen for her knee osteoarthritis as needed. No chest pain or shortness on breath. [facility] Medical History Allergic rhinitis Nocturnal hypoxemia Blurry vision Polyarthritis Mild recurrent major depression Urge urinary incontinence Dry mouth Neck pain Numbness Chronic sinusitis Insomnia Herpes zoster delivery delivered Surgical History Hx of colonoscopy History of esophagogastroduodenoscopy (EGD) History of appendectomy Family History Father HTN (hypertension) Mother HTN (hypertension) Sister HTN (hypertension) Brother No problems noted. Son No problems noted. Daughter No problems noted. Paternal Grandfather Colon cancer Social History Household Members: Children Household Members Other:: grandchildren Housing: House Alcohol intake: never Patient Tobacco Use Status: Current someday Tobacco user Tobacco use type: Cigarette Cigarettes Per Day: 3 e-Cigarette/Vaping Use: Never Used Second Hand Smoke Exposure: No Substance Use Type: Marijuana service: No Current occupational status: unemployed Cognitive needs: No Hearing needs: No Vision needs: Yes (glasses) Questionnaire PHQ-9 Over the last 2 weeks, how often have you been bothered by any of the following problems? 1. Little interest or pleasure in doing things: not at all 2. Feeling down, depressed, or hopeless: not at all 3. Trouble falling or staying asleep, or sleeping too much: not at all 4. Feeling tired or having little energy: not at all 5. Poor appetite or overeating: not at all 6. Feeling bad about yourself - or that you are a failure or have let yourself or your family down: not at all 7. Trouble concentrating on things, such as reading the newspaper or watching television: not at all 8. Moving or speaking so slowly that other people could have noticed. Or the opposite - being so fidgety or restless that you have been moving around a lot more than usual: not at all 9. Thoughts that you would be better off or of hurting yourself in some way: not at all Total score: 0 Depression Screening Interpretation: Negative Depression Screening Done: Yes 39264 - PHQ-9 Billing: Yes Source: Developed by Drs. Mendel Feliz, Henny Escalante, Aydin Reyes and colleagues, with an educational karine from [employer]. Thrive Questionnaire Date Thrive assessed: 03/18/22 IDALMIS-7 AMB Questionnaire IDALMIS-7 Date IDALMIS - 7 assessed: 10/07/23 Feeling nervous, anxious, or on edge: 0 = Not at all Not being able to stop or control worryin = Not at all Worrying too much about different things: 0 = Not at all Trouble relaxin = Not at all Being so restless that it is hard to sit still: 0 = Not at all Becoming easily annoyed or irritable: 0 = Not at all Feeling afraid as if something awful might happen: 0 = Not at all Total IDALMIS-7 score (0-4 normal; 5-9 mild; 10-14 moderate; 15-21 severe): 0 Source: Developed by Drs. Mendel Feliz, Henny Escalante, Aydin Reyes and colleagues, with an educational karine from [employer]. IDALMIS-7 Assessment Billing IDALMIS-7 Assessment Tool: IDALMIS-7 Assessment 92553 Review of Systems Const All systems reviewed & are unremarkable except as noted in HPI and below Card Denies chest pain at rest, Denies chest pain with activity, Denies edema, Denies irregular heart rhythm, Denies claudication, Denies dyspnea, Denies dyspnea on exertion, Denies orthopnea, Denies paroxysmal nocturnal dyspnea and Denies slow heart rate Resp Denies cough, Denies dyspnea and Denies dyspnea on exertion GI Denies abdominal pain, Denies change in bowel habits, Denies excessive flatus, Denies nausea and Denies vomiting Physical exam (Primary Care) Vital Signs: Last Vital Signs BP 122/80 10/07/23 14:01 BMI result Body Mass Index 24.9 Tobacco/Smoking Status: Tobacco use Status Tobacco use date assessed 10/07/23 10/07/23 14:06 Patient Tobacco Use Status Current someday Tobacco 10/07/23 14:06 Tobacco use type Cigarette 10/07/23 14:06 e-Cigarette/Vaping Use Never Used 10/07/23 14:06 PHQ-9: PHQ-9 Score PHQ-9: Total score 0 10/07/23 14:08 Depression Screening Interpretation: Negative Thrive Assessment: Date of Thrive Assessment Date Thrive assessed 03/18/22 10/07/23 14:06 Resp Effort & Inspection: normal respiratory effort Auscultation: clear to auscultation bilaterally Cardio Jugular venous distension: no JVD Rate: regular rate Rhythm: regular rhythm Heart sounds: S1 normal heart sound present and S2 normal heart sound present GI Inspection: Yes normal to inspection Palpation (GI): Soft to palpation and nontender Auscultation: normal bowel sounds Extrem General: Yes full ROM Assessment and Plan Assessment & Plan (1) Chronic sinusitis: Comment: acute on chronic Code(s): J32.9 - Chronic sinusitis, unspecified Plan: Continue Flonase. (2) GERD (gastroesophageal reflux disease): Code(s): K21.9 - Gastro-esophageal reflux disease without esophagitis Plan: Continue PPIs. (3) Mild recurrent major depression: Code(s): F33.0 - Major depressive disorder, recurrent, mild Plan: Continue escitalopram. (4) Bilateral primary osteoarthritis of knee: Code(s): M17.0 - Bilateral primary osteoarthritis of knee Plan: Continue NSAIDs as needed. Medications: New dicyclomine 10 mg PO QID 30 days 120 caps 6RF Changed From escitalopram oxalate 10 mg PO DAILY To escitalopram oxalate 10 mg PO DAILY 90 days 90 tabs 1RF Refilled cetirizine (All Day Allergy (cetirizine)) 10 mg PO DAILY 90 days PRN 90 tabs 0RF allergy symptoms acetaminophen 500 mg PO Q6H PRN 30 tabs 0RF pain albuterol sulfate 90 mcg/actuation 2 puffs inhalation Q6H 30 days PRN 6.7 grams 1RF shortness of breath or wheezing fluticasone propionate 50 mcg/actuation 1 spray intranasal DAILY 16 mL 1RF for allergies ibuprofen 800 mg (2 x 400 mg) PO TID 30 days 180 tabs 1RF tizanidine start with 1/2 tab as medication can be sedating 2 mg PO BEDTIME 30 days PRN 30 tabs 1RF muscle spasticity Z00.00 - Encounter for general adult medical examination without abnormal findings omeprazole 20 mg PO DAILY 90 days 90 caps 1RF Coding Level of Care Code Est Pt Level 4 (77333) Complex EM visit Add On G2211 Diagnoses Chronic sinusitis J32.9 GERD (gastroesophageal reflux disease) K21.9 Mild recurrent major depression F33.0 Bilateral primary osteoarthritis of knee M17.0 Additional Codes IDALMSI-7 Assessment Billing - IDALMIS-7 Assessment Tool: IDALMIS-7 Assessment 67598 ([id number]) Time Spent (min) 22
[2023-10-07 14:01] VITALS: BP 122/80; BMI 24.9
== END 2023-10-07 14:33 | disposition home or self-care (01) ==
PROVIDERS: PCP Internal Medicine; Visit Provider Internal Medicine
DX: J32.9 Chronic sinusitis, unspecified (principal); K21.9 Gastro-esophageal reflux disease without esophagitis; F33.0 Major depressive disorder, recurrent, mild; M17.0 Bilateral primary osteoarthritis of knee
CPT/HCPCS: 99214; G2211

== ENCOUNTER 2023-11-23 09:06 | Outpatient (REF) | payer OTHER, SELFPAY ==
[2023-11-23 10:38] LABS: Alanine Aminotransferase 17 U/L (0-31); Albumin Level 4.3 g/dL (3.5-5.0); Alkaline Phosphatase 138 U/L (39-117); Anion Gap 12 (12-20); Aspartate Amino Transferase 16 U/L (5-31); Bilirubin Total 0.3 mg/dL (0.0-1.0); Blood Urea Nitrogen 14 mg/dL (9-16); Calcium 9.6 mg/dL (8.4-10.2); Carbon Dioxide 25 mmol/L (22-29); Chloride 110 mmol/L (96-108); Cholesterol 217 mg/dL (<200); Estimated Glomerular Filt Rate > 60; Glucose Fasting 97 mg/dL (60-99); HDL Cholesterol 49 mg/dL (>40); LDL Cholesterol Calculated 145 mg/dL (<100); Potassium 3.9 mmol/L (3.3-5.1); Sodium 143 mmol/L (135-145); Total Protein 7.4 g/dL (6.5-8.0); Triglycerides 115 mg/dL (<150)
== END 2023-11-23 09:07 | disposition home or self-care (01) ==
LOC: HO.LAB 09:06
PROVIDERS: PCP Internal Medicine; Visit Provider Internal Medicine
DX: Z00.00 Encounter for general adult medical examination without abnormal findings (principal)
CPT/HCPCS: 36415; 80053; 80061

== ENCOUNTER 2023-11-25 15:52 | Outpatient (AMB) | payer OTHER, SELFPAY ==
--- NOTE | 2023-11-25 15:58 | MHC.PC.OV ---
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 Accompanied by: Self / Same As Patient Allergies No Known Allergies [No Known Allergies*] Allergy (Verified 11/25/23 16:12) Medication List - Last Reconciled 11/25/23 by Sarah Bonilla MD acetaminophen 500 mg PO Q6H PRN albuterol sulfate 90 mcg/actuation 2 puffs inhalation Q6H PRN 30 days cetirizine (All Day Allergy (cetirizine)) 10 mg PO DAILY PRN 90 days cholecalciferol (vitamin D3) 50 mcg PO DAILY 90 days cyclobenzaprine 10 mg PO TID PRN 5 days diclofenac sodium 1% (Voltaren Arthritis Pain) 2 grams topical BID dicyclomine 10 mg PO QID 30 days escitalopram oxalate 10 mg PO DAILY 90 days fluticasone propionate 50 mcg/actuation 1 spray intranasal DAILY ibuprofen 800 mg (2 x 400 mg) PO TID 30 days imipramine HCl 10 mg PO BID 90 days ipratropium bromide 2 sprays intranasal TID 30 days naproxen 250 mg (1/2 x 500 mg) PO BID PRN 7 days omeprazole 20 mg PO DAILY 90 days tizanidine 2 mg PO BEDTIME PRN 30 days Tobacco use date assessed: 10/07/23 Dental Screening Dental Screen Date: 10/07/23 HPI HPI Comments History of Present Illness Details This is a 58-year-old female with chronic sinusitis that comes for her physical exam. Mammogram done less than a year ago and was normal. Colonoscopy done 2019. Pap smear done less than a year ago. She also complains of epigastric pain and I will order upper GI series. Complains of bilateral ear fullness and chronic sinusitis and would like to see an ENT. No chest pain or shortness on breath. She has mild major depression and escitalopram will be changed to mirtazapine. She is aware that escitalopram has to be decreased for a week before start mirtazapine. PENDING SALE TO [facility] Medical History Allergic rhinitis Nocturnal hypoxemia Blurry vision Polyarthritis Mild recurrent major depression Urge urinary incontinence Dry mouth Neck pain Numbness Chronic sinusitis Insomnia Herpes zoster delivery delivered Surgical History Hx of colonoscopy History of esophagogastroduodenoscopy (EGD) History of appendectomy Family History Father HTN (hypertension) Mother HTN (hypertension) Sister HTN (hypertension) Brother No problems noted. Son No problems noted. Daughter No problems noted. Paternal Grandfather Colon cancer Social History Household Members: Children Household Members Other:: grandchildren Housing: House Alcohol intake: never Patient Tobacco Use Status: Current someday Tobacco user Tobacco use type: Cigarette Cigarettes Per Day: 3 e-Cigarette/Vaping Use: Never Used Second Hand Smoke Exposure: No Substance Use Type: Marijuana service: No Current occupational status: unemployed Cognitive needs: No Hearing needs: No Vision needs: Yes (glasses) Questionnaire PHQ-9 Over the last 2 weeks, how often have you been bothered by any of the following problems? 1. Little interest or pleasure in doing things: several days 2. Feeling down, depressed, or hopeless: not at all 3. Trouble falling or staying asleep, or sleeping too much: more than half the days 4. Feeling tired or having little energy: several days 5. Poor appetite or overeating: several days 6. Feeling bad about yourself - or that you are a failure or have let yourself or your family down: several days 7. Trouble concentrating on things, such as reading the newspaper or watching television: not at all 8. Moving or speaking so slowly that other people could have noticed. Or the opposite - being so fidgety or restless that you have been moving around a lot more than usual: not at all 9. Thoughts that you would be better off or of hurting yourself in some way: not at all Total score: 6 Depression Screening Interpretation: Positive Depression Screening Follow-up: Existing condition, Change in Medication and Follow-up Visit Requested Depression Screening Done: Yes 04964 - PHQ-9 Billing: Yes Source: Developed by Drs. Mendel L. TrayHenny woodruff, Aydin Reyes and colleagues, with an educational karine from [employer]. Thrive Questionnaire Date Thrive assessed: 11/25/23 I am a: Patient What is your living situation today?: I have a steady place to live Within the past 12 months, did the food you bought not last and you didn't have the money to get more?: Sometimes True Within the past 12 months, did you worry whether your food would run out before you got money to buy more?: Sometimes True Do you have trouble paying for medicines?: Yes Do you have trouble getting transportation to medical appointments?: Yes Do you have trouble paying your heating and electricity bill?: Yes Do you have trouble taking care of your child, family member or friend?: No Do you have trouble with day-to-day activities such as bathing, preparing meals, shopping, managing finances, etc.?: No Are you currently unemployed and looking for a job?: I choose not to answer this question Are you interested in more education?: Yes Please select the resources that you would like help with: None Currently or been in a relationship where the following occur: No concerns reported THRIVE Score: 4 AUDIT C Alcohol Use Questionnaire (AUDIT-C) 1. How often do you have a drink containing alcohol?: Never Total Score: 0 Score Reviewed/Action Taken: No IDALMIS-7 AMB Questionnaire IDALMIS-7 Date IDALMIS - 7 assessed: 11/25/23 Feeling nervous, anxious, or on edge: 1 = Several days Not being able to stop or control worryin = Several days Worrying too much about different things: 1 = Several days Trouble relaxin = Several days Being so restless that it is hard to sit still: 1 = Several days Becoming easily annoyed or irritable: 1 = Several days Feeling afraid as if something awful might happen: 1 = Several days Total IDALMIS-7 score (0-4 normal; 5-9 mild; 10-14 moderate; 15-21 severe): 7 Source: Developed by Drs. Mendel Feliz, Aydin Prince and colleagues, with an educational karine from [employer]. IDALMIS-7 Assessment Billing IDALMIS-7 Assessment Tool: IDALMIS-7 Assessment 78346 Review of Systems Const All systems reviewed & are unremarkable except as noted in HPI and below Card Denies chest pain at rest, Denies chest pain with activity, Denies edema, Denies irregular heart rhythm, Denies claudication, Denies dyspnea, Denies dyspnea on exertion, Denies orthopnea, Denies paroxysmal nocturnal dyspnea and Denies slow heart rate Resp Denies cough, Denies dyspnea and Denies dyspnea on exertion GI Denies abdominal pain, Denies change in bowel habits, Denies excessive flatus, Denies nausea and Denies vomiting Denies urinary incontinence, Denies urinary hesitancy and Denies urinary urgency Neuro Denies behavioral changes and Denies lack of coordination Psych Denies behavioral changes Physical exam (Primary Care) Vital Signs: Last Vital Signs BP 120/82 11/25/23 15:59 BMI result Body Mass Index 25.4 Tobacco/Smoking Status: Tobacco use Status Tobacco use date assessed 10/07/23 11/25/23 16:04 Patient Tobacco Use Status Current someday Tobacco 11/25/23 16:04 Tobacco use type Cigarette 11/25/23 16:04 e-Cigarette/Vaping Use Never Used 11/25/23 16:04 PHQ-9: PHQ-9 Score PHQ-9: Total score 6 11/25/23 16:15 Depression Screening Interpretation: Positive Depression Screening Follow-up: Existing condition, Change in Medication and Follow-up Visit Requested Thrive Assessment: Date of Thrive Assessment Date Thrive assessed 11/25/23 11/25/23 16:04 Currently or been in a relationship where the following occur: No concerns reported [facility] Head: Yes normal to inspection, Yes normocephalic and Yes atraumatic Ears: external ears normal Eyes General: appearance normal, both eyes and all related structures Eyelids: Yes eyelids normal Conjunctivae: conjunctivae normal Neck Neck: Yes normal visual inspection and Yes supple Resp Effort & Inspection: normal respiratory effort Auscultation: clear to auscultation bilaterally Cardio Jugular venous distension: no JVD Rate: regular rate Rhythm: regular rhythm Heart sounds: S1 normal heart sound present and S2 normal heart sound present GI Inspection: Yes normal to inspection Palpation (GI): Soft to palpation and nontender Auscultation: normal bowel sounds Skin General skin exam: no rashes or lesions noted Neuro General: no focal motor deficits Extrem General: Yes full ROM Psych Appearance: grossly normal Assessment and Plan Assessment & Plan (1) Physical exam: Code(s): Z00.00 - Encounter for general adult medical examination without abnormal findings Plan: Repeat in a year. (2) Epigastric pain: Code(s): R10.13 - Epigastric pain Plan: Upper GI series. (3) Chronic sinusitis: Comment: acute on chronic Code(s): J32.9 - Chronic sinusitis, unspecified Plan: Referred to ENT. Orders: Orders [place] upper GI series Today R10.13 - Epigastric pain Referrals Ear/Nose/Throat Referral J32.9 - Chronic sinusitis, unspecified Coding Level of Care Code Est Pt Level 3 (80044) Est Pt Prev Care 40-64y(98298) Diagnoses Physical exam Z00.00 Epigastric pain R10.13 Chronic sinusitis J32.9 Additional Codes IDALMIS-7 Assessment Billing - IDALMIS-7 Assessment Tool: IDALMIS-7 Assessment [id number] ([id number]) Time Spent (min) 33
[2023-11-25 15:59] VITALS: BP 120/82; BMI 25.4
== END 2023-11-25 16:30 | disposition home or self-care (01) ==
PROVIDERS: PCP Internal Medicine; Visit Provider Internal Medicine
DX: Z00.00 Encounter for general adult medical examination without abnormal findings (principal); R10.13 Epigastric pain; J32.9 Chronic sinusitis, unspecified; F32.0 Major depressive disorder, single episode, mild

== ENCOUNTER → 2023-11-25 15:52 | Outpatient (BNVA) | payer OTHER, SELFPAY | PROVIDERS: PCP Internal Medicine; Visit Provider Internal Medicine | DX: Z00.00 Encounter for general adult medical examination without abnormal findings (principal); R10.13 Epigastric pain; J32.9 Chronic sinusitis, unspecified | CPT/HCPCS: 96127; 99212; 99396 ==

== ENCOUNTER 2024-02-03 09:55 | Outpatient (REF) | payer OTHER, SELFPAY ==
--- NOTE | ~2024-02-03 | FL_ITS ---
EXAMINATION: XR FLUOROSCOPY UPPER GI WITH AIR CLINICAL INFORMATION: Epigastric pain. COMPARISON: None TECHNIQUE: Fluoroscopic air contrast upper GI examination was performed utilizing standard techniques with thin and thick barium and effervescent granules. Numerous spot images were obtained. FINDINGS: Dual and single contrast images of the esophagus demonstrate a normal caliber and contour. There is a line granular appearance of the esophageal mucosa, suggestive of esophagitis. Also felinization of the mid esophageal mucosa. No strictures, masses or ulcerations are seen. Esophageal peristalsis was normal. A small to moderate-sized type I hiatal hernia is present. Significant gastroesophageal reflux seen up to the thoracic inlet. Dual contrast and single contrast images of the stomach demonstrated a normal contour. The gastric mucosal folds have a thickened appearance, suggestive of gastritis. No masses or ulcerations are seen. Contrast freely passed into the gastric antrum and duodenal bulb without delay. Single and air-contrast images of the duodenal bulb demonstrate no abnormality. The duodenal sweep has a normal appearance, course, and mucosal fold appearance. FLUOROSCOPY TIME: 6.0 minutes Number of Spot Images: 12 Number of Cine: 14 DOSE AREA PRODUCT: [id number] uGy-m2 (microgray-meter squared) FL/FL upper GI w air IMPRESSION: 1. Fine granular appearance of the esophageal mucosa, possibly representing underlying esophagitis. 2. Felinization of the mid esophageal mucosa. This is a benign finding associated with chronic gastric esophageal reflux. 3. Small to moderate-sized type I hiatal hernia with significant gastroesophageal reflux. 4. Thickened appearance of the gastric rugal folds, suggestive of gastritis. This procedure was performed by Tommy Alejandra PA-C, and supervised by Dr. Mishra Electronically signed by: Kristopher Mishra MD 02/03/2024 03:45 PM [facility] [place]
== END 2024-02-03 09:56 | disposition home or self-care (01) ==
LOC: HO.XRAY 09:55
PROVIDERS: PCP Internal Medicine; Visit Provider Internal Medicine
DX: R10.13 Epigastric pain (principal)
CPT/HCPCS: 74246

== ENCOUNTER → 2024-02-03 09:57 | Outpatient (BNV) | payer OTHER, SELFPAY | PROVIDERS: PCP Internal Medicine; Visit Provider Physician Assistant Surgical | DX: R10.13 Epigastric pain (principal) | CPT/HCPCS: 74246 ==

== ENCOUNTER 2024-03-11 11:45 | Emergency (ER) | payer OTHER, SELFPAY ==
[2024-03-11 11:49] VITALS: BP 129/100; PULSE 66; RESP 20; TEMP 36.3; O2SAT 97; BMI 24.3
--- NOTE | 2024-03-11 11:49 | ED.GENADULT ---
HPI - General Adult General Chief complaint: Abdominal Pain Stated complaint: Pain by ribs Time Seen by Provider: 03/11/24 16:37 Source: patient, RN notes reviewed and old records reviewed Mode of arrival: ambulatory Limitations: no limitations History of Present Illness ED Provider: Asif Andrade PA-C HPI narrative: 58 yo [place] speaking female with history of Celiac disease, GERD, hemorrhoids, depression who presents to the ER for evaluation of acute on chronic LUQ pain and nausea. She reports having intermittent pain in the LUQ since and can feel a small ball under her rib on the left side. She has had imaging and testing done here and at [facility]. She has been on omeprazole, recently increased to 40mg. Pain persists and nausea started 2 days ago. Unable to get in with GI until May. She reports the pain is stabbing in nature. Comes and goes. No vomiting and she is having normal BMs. No improvement with dietary modifications. MD complaint: LUQ pain and nausea Onset (ago): month(s) Location: abdomen Radiation: non-radiation Severity: moderate Quality: stabbing Pain Consistency: intermittent Relieving factors: none Exacerbating factors: none Associated symptoms: denies other symptoms Treatments prior to arrival: none Related Data Previous Rx's ?Medication ?Instructions ?Recorded diclofenac sodium 1 % topical gel 2 g topical BID #100 grams 05/02/22 (Voltaren Arthritis Pain) ipratropium bromide 42 mcg (0.06 2 spray intranasal TID Nasal 06/03/22 %) nasal spray allergy 30 days #15 mL cyclobenzaprine 10 mg tablet 10 mg PO TID PRN muscle spasm 5 03/17/23 days #15 tabs naproxen 500 mg tablet 250 mg (1/2 x 500 mg) PO BID PRN 07/04/23 pain 7 days #14 tabs acetaminophen 500 mg tablet 500 mg PO Q6H PRN pain #30 tabs 10/07/23 albuterol sulfate 90 mcg/actuation 2 puff inhalation Q6H PRN 10/07/23 aerosol inhaler shortness of breath or wheezing 30 days #6.7 grams cholecalciferol (vitamin D3) 50 50 mcg PO DAILY 90 days #90 caps 10/07/23 mcg (2,000 unit) capsule dicyclomine 10 mg capsule 10 mg PO QID 30 days #120 caps 10/07/23 escitalopram oxalate 10 mg tablet 10 mg PO DAILY 90 days #90 tabs 10/07/23 ibuprofen 400 mg tablet 800 mg (2 x 400 mg) PO TID 30 days 10/07/23 #180 tabs tizanidine 2 mg tablet 2 mg PO BEDTIME PRN muscle 10/07/23 spasticity 30 days #30 tabs fluticasone propionate 50 1 spray intranasal DAILY for 01/02/24 mcg/actuation nasal allergies #16 mL spray,suspension imipramine HCl 10 mg tablet 10 mg PO BID 90 days #180 tabs 01/03/24 omeprazole 20 mg capsule,delayed 20 mg PO DAILY 90 days #90 caps 02/12/24 release cetirizine 10 mg tablet (All Day 10 mg PO DAILY PRN allergy 02/16/24 Allergy (cetirizine)) symptoms 90 days #90 tabs ondansetron 8 mg disintegrating 8 mg PO Q8H PRN nausea and 03/07/24 tablet vomiting 5 days #15 tabs omeprazole 40 mg capsule,delayed 40 mg PO DAILY #30 caps 03/11/24 release ondansetron 4 mg disintegrating 4 mg PO Q8H PRN nausea and 03/11/24 tablet vomiting #10 tabs sucralfate 100 mg/mL oral 5 ml PO QID #473 mL 03/11/24 suspension (Carafate) Allergies Allergy/AdvReac Type Severity Reaction Status Date / Time No Known Allergies Allergy Verified 03/11/24 11:51 [No Known Allergies*] Review of Systems Review of Systems: Yes all other systems are reviewed and are negative PMFSH Past Medical History Medical History Allergic rhinitis Nocturnal hypoxemia Blurry vision Polyarthritis Mild recurrent major depression Urge urinary incontinence Dry mouth Neck pain Numbness Chronic sinusitis Insomnia Herpes zoster delivery delivered Surgical History Hx of colonoscopy History of esophagogastroduodenoscopy (EGD) History of appendectomy Family History Family History Father HTN (hypertension) Mother HTN (hypertension) Sister HTN (hypertension) Brother No problems noted. Son No problems noted. Daughter No problems noted. Paternal Grandfather Colon cancer Social History Social History Household Members: Children Household Members Other:: grandchildren Housing: House Alcohol intake: never Patient Tobacco Use Status: Current someday Tobacco user Tobacco use type: Cigarette Cigarettes Per Day: 3 e-Cigarette/Vaping Use: Never Used Second Hand Smoke Exposure: No Substance Use Type: Marijuana Advance Directives: No Advance Directives Information Provided: No Do you have a plan to hurt others: No Plan service: No Current occupational status: unemployed Cognitive needs: No Hearing needs: No Vision needs: Yes (glasses) Physical Exam ED Vital Signs: Vital Signs - 24 hr 03/11/24 11:49 03/11/24 16:32 Temperature 97.3 F 96.8 F Pulse Rate 66 75 Respiratory Rate 20 16 Blood Pressure 129/100 H 140/99 H Pulse Oximetry 97 98 Oxygen Delivery Method Room Air Room Air BMI result Body Mass Index 24.3 Appearance: Alert. Oriented X3. No acute distress. HEENT: normal external inspection Neck: Normal inspection. CVS: Normal heart rate and rhythm. Pulses normal. Respiratory: No respiratory distress. Breath sounds normal. Abdomen: Soft with mild LUQ tenderness to deep palpation, no appreciated masses. normal active +BS x4 Skin: Skin warm and dry. Normal skin color. Normal skin turgor. No rashes. Extremities: No lower extremity edema. No joint swelling. Neuro/psych: Oriented X 3. grossly normal, nonfocal. Course Course Course Narrative: This is a rapid medical exam performed by Joie Stephenson NP: Additional HPI, ROS, PE not included below will be deferred to primary provider. Patient is a 58-year-old [place] speaking female with history of polyarthritis, chronic sinusitis, Celiac disease, appendectomy presenting with complaint of LUQ abdominal pain radiating to epigastric area for months, since October. Seen at [facility] for same, told she has gastritis but states there has to be something else. Complains of nausea. Plan: labs Medical Decision Making Medical Decision Making MDM Narrative: 58 yo female presenting for evaluation of acute on chronic LUQ pain and nausea. Labs today reassuring. symptoms since october. recent UGI series reviewed - she needs to be seen by GI for follow up. will add carafate and zofran prn. food diary encouraged along with bland diet stable for d/c home with GI follow up Differential Diagnosis Differential Diagnoses: The differential diagnosis associated with the presentation includes gastritis, neoplasm, GERD, esophagitis, PUD, perforation, H. pylori, MSK pain Lab Data MDM Lab Attestation statement: I reviewed the patient's lab results. normal CBC, no major metabolic derangement 03/11/24 14:08 03/11/24 14:08 Labs: Lab Results 03/11/24 Range/Units 14:08 WBC 6.5 (4.8-10.8) X10*3/uL RBC 4.74 (4.20-5.50) X10*6/uL Hgb 13.3 (12.0-16.0) g/dl Hct 41.7 (37.0-47.0) % MCV 88.0 (80.0-98.0) fL MCH 28.1 (27.0-33.0) pg MCHC 31.9 (31.0-35.0) g/dl RDW 13.5 (11.0-16.0) % Plt Count 223 D (160-400) X10*3/uL MPV 10.7 (9.4-12.3) fL Immature Gran % (Auto) 0.3 (0.0-0.4) % Neut % (Auto) 62.2 (45-73) % Lymph % (Auto) 26.2 (20-40) % [place] % (Auto) 7.3 (2-11) % Eos % (Auto) 3.1 (0-4) % Baso % (Auto) 0.9 (0-2) % Lymph # (Auto) 1.7 (1.2-4.9) X10*3/uL [place] # (Auto) 0.5 (0.1-1.2) X10*3/uL Eos # (Auto) 0.2 (0.0-0.4) X10*3/uL Baso # (Auto) 0.1 (0.0-0.2) X10*3/uL Abs Immat Gran (auto) 0.02 (0.00-0.03) X10*3/uL Absolute Neuts (auto) 4.0 (2.0-8.3) x10*3/uL Absolute Nucleated RBC 0.000 (0.0-0.012) X10*3/uL Nucleated RBC % (auto) 0.0 (0.0-0.2) /100WBC Sodium 145 (135-145) mmol/L Potassium 3.8 (3.3-5.1) mmol/L Chloride 112 H (96-108) mmol/L Carbon Dioxide 28 (22-29) mmol/L Anion Gap 9 L (12-20) BUN 13 (9-16) mg/dL Creatinine 0.77 (0.5-1.4) mg/dL Estim Creat Clear Calc 77.4 Estimated GFR > 60 Random Glucose 101 (60-115) mg/dL Calcium 9.5 (8.4-10.2) mg/dL Total Bilirubin 0.3 (0.0-1.0) mg/dL AST 29 (5-31) U/L ALT 30 (0-31) U/L Alkaline Phosphatase 129 H (39-117) U/L Total Protein 7.4 (6.5-8.0) g/dL Albumin 4.3 (3.5-5.0) g/dL Lipase 46 (8-78) U/L External Record Review External record reviewed: Outpatient record, Prior outpatient labs and Prior outpatient radiology Tests considered The following testing was considered but not selected: considered CT scan of the abdomen however not an acute abdomen and symptoms chronic Prescription Management I considered prescription management with: Pain Medication and Antibiotic Critical Care Time Critical Care Time Critical Care Time: No Discharge Plan Discharge Clinical Impression: Gastritis Qualifiers: Gastritis type: unspecified gastritis Chronicity: unspecified Gastritis bleeding: without bleeding Qualified Code(s): K29.70 - Gastritis, unspecified, without bleeding Patient Disposition: Home, Self-Care Instructions: Gastritis (DC), Diet for Stomach Ulcers and Gastritis (ED), Upper Endoscopy (DC) Additional Instructions: Your lab workup today was unremarkable. Your pain is due to gastritis which is and irritation and inflammation of your stomach lining. Start taking the prescribed medication as directed for this. Continue omeprazole 40 mg per day Stick to a bland diet. Avoid foods high in acid, avoid alcohol and NSAID medications like Aleve, Motrin, Advil or ibuprofen. Follow up with your doctor as needed. Follow up with GI doctor - call for an appointment If you develop new or worsening symptoms call 911 or come back to the ER for further evaluation. February 02/2024 FL/FL upper GI w air IMPRESSION: 1. Fine granular appearance of the esophageal mucosa, possibly representing underlying esophagitis. 2. Felinization of the mid esophageal mucosa. This is a benign finding associated with chronic gastric esophageal reflux. 3. Small to moderate-sized type I hiatal hernia with significant gastroesophageal reflux. 4. Thickened appearance of the gastric rugal folds, suggestive of gastritis. Prescriptions: New sucralfate [Carafate] 100 mg/mL suspension 5 ml PO QID Qty: 473 0RF Rx Instructions: swish in mouth and swallow; use after food/drink omeprazole 40 mg capsule,delayed release(DR/EC) 40 mg PO DAILY Qty: 30 0RF ondansetron 4 mg tablet,disintegrating 4 mg PO Q8H PRN (Reason: nausea and vomiting) Qty: 10 0RF No Action diclofenac sodium [Voltaren Arthritis Pain] 1 % gel 2 g topical BID Qty: 100 1RF Rx Instructions: apply to single elbow, wrist or hand; for hand includes palm/fingers/back of hand. Do not take with oral ibuprofen. naproxen 500 mg tablet 250 mg PO BID PRN (Reason: pain) 7 Days Qty: 14 0RF cholecalciferol (vitamin D3) 50 mcg (2,000 unit) capsule 50 mcg PO DAILY 90 Days Qty: 90 1RF fluticasone propionate 50 mcg/actuation spray,suspension 1 spray intranasal DAILY Qty: 16 1RF imipramine HCl 10 mg tablet 10 mg PO BID 90 Days Qty: 180 0RF omeprazole 20 mg capsule,delayed release(DR/EC) 20 mg PO DAILY 90 Days Qty: 90 1RF cetirizine [All Day Allergy (cetirizine)] 10 mg tablet 10 mg PO DAILY PRN (Reason: allergy symptoms) 90 Days Qty: 90 0RF ondansetron 8 mg tablet,disintegrating 8 mg PO Q8H PRN (Reason: nausea and vomiting) 5 Days Qty: 15 0RF cyclobenzaprine 10 mg tablet 10 mg PO TID PRN (Reason: muscle spasm) 5 Days Qty: 15 0RF Rx Instructions: alyssa effect is drowsiness. Do not take at work or while driving. tizanidine 2 mg tablet 2 mg PO BEDTIME PRN (Reason: muscle spasticity) 30 Days Qty: 30 1RF Rx Instructions: start with 1/2 tab as medication can be sedating dicyclomine 10 mg capsule 10 mg PO QID 30 Days Qty: 120 6RF acetaminophen 500 mg tablet 500 mg PO Q6H PRN (Reason: pain) Qty: 30 0RF albuterol sulfate 90 mcg/actuation HFA aerosol inhaler 2 puff inhalation Q6H PRN (Reason: shortness of breath or wheezing) 30 Days Qty: 6.7 1RF escitalopram oxalate 10 mg tablet 10 mg PO DAILY 90 Days Qty: 90 1RF ibuprofen 400 mg tablet 800 mg PO TID 30 Days Qty: 180 1RF ipratropium bromide 42 mcg (0.06 %) spray,non-aerosol 2 spray intranasal TID 30 Days Qty: 15 0RF Rx Instructions: administer into each nostril before putting on the CPAP mask Referrals: [facility] [Provider Group] Sarah Martinez MD [Primary Care Provider] - Print Language: U[place]
[2024-03-11 14:13] LABS: MANUAL DIFF FLAG NO
[2024-03-11 14:15] LABS: Basophils Absolute Auto 0.1 X10*3/uL (0.0-0.2); Basophils Percent Auto 0.9 % (0-2); Eosinophils Absolute Auto 0.2 X10*3/uL (0.0-0.4); Eosinophils Percent Auto 3.1 % (0-4); Hematocrit 41.7 % (37.0-47.0); Hemoglobin 13.3 g/dl (12.0-16.0); Imm Gran Abs Auto 0.02 X10*3/uL (0.00-0.03); Imm Gran Pct Auto 0.3 % (0.0-0.4); Lymphocytes Absolute Auto 1.7 X10*3/uL (1.2-4.9); Lymphocytes Percent Auto 26.2 % (20-40); Mean Corpuscular HGB Conc 31.9 g/dl (31.0-35.0); Mean Corpuscular Hemoglobin 28.1 pg (27.0-33.0); Mean Platelet Volume 10.7 fL (9.4-12.3); Monocytes Absolute Auto 0.5 X10*3/uL (0.1-1.2); Monocytes Percent Auto 7.3 % (2-11); Neutrophils Percent Auto 62.2 % (45-73); Platelet Count 223 X10*3/uL (160-400); Red Blood Count 4.74 X10*6/uL (4.20-5.50); Red Cell Distribution Width 13.5 % (11.0-16.0); White Blood Count 6.5 X10*3/uL (4.8-10.8)
[2024-03-11 14:46] LABS: Alanine Aminotransferase 30 U/L (0-31); Albumin Level 4.3 g/dL (3.5-5.0); Anion Gap 9 (12-20); Aspartate Amino Transferase 29 U/L (5-31); Bilirubin Total 0.3 mg/dL (0.0-1.0); Blood Urea Nitrogen 13 mg/dL (9-16); Calcium 9.5 mg/dL (8.4-10.2); Carbon Dioxide 28 mmol/L (22-29); Chloride 112 mmol/L (96-108); Creatinine Clr Calc Pharmacy 77.4; Estimated Glomerular Filt Rate > 60; Glucose Random 101 mg/dL (60-115); Lipase 46 U/L (8-78); Potassium 3.8 mmol/L (3.3-5.1); Sodium 145 mmol/L (135-145); Total Protein 7.4 g/dL (6.5-8.0)
[2024-03-11 15:17] LABS: Alkaline Phosphatase 129 U/L (39-117)
[2024-03-11 16:32] VITALS: BP 140/99; PULSE 75; RESP 16; TEMP 36; O2SAT 98
[2024-03-11 17:39] VITALS: BP 145/99; PULSE 65; RESP 16; TEMP 36.4; O2SAT 99
--- NOTE | 2024-03-11 17:39 | PC.NURSE ---
pt a&ox3, rr equal/non labored, pt had labs previously drawn, pt to discharge home with prescriptions.
== END 2024-03-11 17:40 | disposition home or self-care (01) ==
PROVIDERS: Registered Nurse Emergency; Emergency Provider Emergency Medicine; PCP Internal Medicine
DX: K29.70 Gastritis, unspecified, without bleeding (principal); R10.12 Left upper quadrant pain; F17.210 Nicotine dependence, cigarettes, uncomplicated
CPT/HCPCS: 36415; 80053; 83690; 85025; 99283

== ENCOUNTER 2024-03-15 14:42 | Outpatient (AMB) | payer OTHER, SELFPAY ==
[2024-03-15 15:06] VITALS: BP 146/98; BMI 24.3
--- NOTE | 2024-03-15 15:06 | MHC.OFFVIS ---
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 She is doing well with obgyn hospitalist physician concerns: External itching, prolapse and urgency incontinence. No UTI symptoms. Currently not sexually active. Attempting to eat a healthy diet with calcium and vitamin D and stays active with exercise. Last pap smear; 2022-colposcopy followed ascus positive HPV. Last mammogram; 2023. Colonoscopy is being scheduled. Denies any family history of breast or ovarian. FH colon cancer. [facility] Medical History Allergic rhinitis Nocturnal hypoxemia Blurry vision Polyarthritis Mild recurrent major depression Urge urinary incontinence Dry mouth Neck pain Numbness Chronic sinusitis Insomnia Herpes zoster delivery delivered Surgical History Hx of colonoscopy History of esophagogastroduodenoscopy (EGD) History of appendectomy Family History Father HTN (hypertension) Mother HTN (hypertension) Sister HTN (hypertension) Brother No problems noted. Son No problems noted. Daughter No problems noted. Paternal Grandfather Colon cancer Social History Household Members: Children Household Members Other:: grandchildren Housing: House Alcohol intake: never Patient Tobacco Use Status: Current someday Tobacco user Tobacco use type: Cigarette Cigarettes Per Day: 3 e-Cigarette/Vaping Use: Never Used Second Hand Smoke Exposure: No Substance Use Type: Marijuana service: No Current occupational status: unemployed Cognitive needs: No Hearing needs: No Vision needs: Yes (glasses) Female Reproductive History Menstrual Total pregnancies: 2 Full term: 2 Number of Living Children: 2 Date of last pap smear: 02/26/23 Date of Mammogram: 07/23/23 Review of Systems Const All systems reviewed & are unremarkable except as noted in HPI and below Reports as per HPI Eyes Reports no additional complaints ENT Reports no additional complaints Card Reports no additional complaints Resp Reports no additional complaints GI Reports as per HPI and Reports no additional complaints Reports as per HPI Musc Reports no additional complaints Skin/Breast Reports as per HPI Neuro Reports no additional complaints Psych Reports no additional complaints Endo Reports no additional complaints Bill/Lymph Reports no additional complaints Aller/Immun Reports no additional complaints Physical Exam Vital Signs: Last Vital Signs BP 146/98 H 03/15/24 15:06 BMI result Body Mass Index 24.3 Const General: cooperative, healthy appearing, no acute distress, well developed and alert Orientation/consciousness: patient oriented x3 HEENT Head: Yes normal to inspection Eyes General: appearance normal, both eyes and all related structures Neck Neck: Yes normal visual inspection Thyroid: Thyroid normal Chest Chest palpation & inspection: normal inspection of the chest and other (no puckering, dimpling, peau de orange, retraction, discharge, masses) Breast/axilla inspection: normal inspection of the breasts Breast/axilla palpation: normal palpation of the breasts Resp Effort & Inspection: normal respiratory effort GI Inspection: Yes normal to inspection Palpation (GI): Soft to palpation Rectal Exam - Female: deferred General: Yes bladder normal to palpation External Female Exam: normal external appearance and normal appearance of the urethra Speculum Exam - Vagina: normal appearance of the vagina, normal palpation, normal vaginal discharge and vagina atrophic (mod-sev, w/petichiae) Speculum Exam - Cervix: normal appearance of the cervix and normal palpation Bimanual exam- vagina & uterus: normal bimanual exam, normal palpation, uterine size normal, bladder normal to palpation, normal palpation and non-tender Bimanual Exam- Adnexa, other: no masses Skin General skin exam: no rashes or lesions noted Rashes: no rashes Neuro General: patient oriented x3 Cognition (Neuro): normal cognition Extrem General: Yes normal to inspection Psych Attitude: cooperative Thought process: Normal thought process present Assessment & Plan Assessment & Plan (1) Encounter for well woman exam with routine gynecological exam: Code(s): Z01.419 - Encounter for gynecological examination (general) (routine) without abnormal findings Category: Medical (2) ASCUS with positive high risk HPV cervical: Code(s): R87.610 - Atypical squamous cells of undetermined significance on cytologic smear of cervix (ASC-US); R87.810 - Cervical high risk human papillomavirus (HPV) DNA test positive Category: Medical (3) Urge urinary incontinence: Code(s): N39.41 - Urge incontinence Category: Medical (4) Vulvar itching: Code(s): L29.2 - Pruritus vulvae Plan Discussed: Current recommendations for pap smears per ASCCP guidelines. Pap obtained. Breast awareness, periodic self breast exams and yearly mammogram. Maintain a healthy lifestyle, well balanced diet including Calcium 1,200 mg and Vitamin D 600 IU daily, and routine exercise. Use of condoms for STI prevention if indicated. GC chlamydia and BV panel obtained. Await results for plan of care. Contact the office with any postmenopausal bleeding. Rinse with water or if needed use a mild soap such as unscented baby or [place], rinse well, cotton underclothes. Atrophic vaginitis, follow up if desires treatment. Referral to urology. Patient verbalizes understanding and agrees to the plan of care. She was given opportunity to ask questions and all questions were answered to the best of my ability. RTO in 1 year for annual obgyn hospitalist physician exam. This note is constructed using voice recognition software. While every effort has been made to ensure accuracy, health care facilities inspector errors may have been included. Orders: Referrals Urology Referral N39.41 - Urge incontinence Coding Level of Care Code Est Pt Prev Care 40-64y(10745) Diagnoses Encounter for well woman exam with routine gynecological exam Z01.419 ASCUS with positive high risk HPV cervical R87.610; R87.810 Urge urinary incontinence N39.41 Vulvar itching L29.2
== END 2024-03-15 16:19 | disposition home or self-care (01) ==
PROVIDERS: PCP Internal Medicine; Visit Provider Advanced Practice Midwife
DX: Z01.419 Encounter for gynecological examination (general) (routine) without abnormal findings (principal); R87.610 Atypical squamous cells of undetermined significance on cytologic smear of cervix (ASC-US); R87.810 Cervical high risk human papillomavirus (HPV) DNA test positive; N39.41 Urge incontinence; L29.2 Pruritus vulvae
CPT/HCPCS: 99396

== ENCOUNTER 2024-03-15 14:42 | Outpatient (REF) | payer OTHER, SELFPAY ==
[2024-03-17 03:26] LABS: CT PCR NOT DETECTED (Not Detect.); NG PCR NOT DETECTED (Not Detect.)
[2024-03-17 07:55] LABS: HPV 16,18/45 See PAP report
[2024-03-17 11:54] LABS: Bacterial Vaginosis PCR NEGATIVE (Negative); Candida Group PCR NOT DETECTED (Not Detect); Candida glab krusei PCR NOT DETECTED (Not Detect); Trichomonas vaginalis PCR NOT DETECTED (Not Detect)
== END 2024-03-15 14:43 | disposition home or self-care (01) ==
LOC: HO.LNP 14:42
PROVIDERS: PCP Internal Medicine; Visit Provider Advanced Practice Midwife
DX: Z01.419 Encounter for gynecological examination (general) (routine) without abnormal findings (principal); R87.610 Atypical squamous cells of undetermined significance on cytologic smear of cervix (ASC-US); R87.810 Cervical high risk human papillomavirus (HPV) DNA test positive; N39.41 Urge incontinence; L29.2 Pruritus vulvae
CPT/HCPCS: 81515; 87491; 87591; 87626; 88175; 99396; 99459

== ENCOUNTER 2024-04-19 11:10 | Outpatient (REF) | payer OTHER, SELFPAY | END 2024-04-19 11:11 | disposition home or self-care (01) | LOC: HO.LNP 11:10 | PROVIDERS: PCP Internal Medicine; Visit Provider Advanced Practice Midwife | DX: N94.89 Other specified conditions associated with female genital organs and menstrual cycle (principal); N95.2 Postmenopausal atrophic vaginitis | CPT/HCPCS: 81515; 87491; 87591; 99212 ==

== ENCOUNTER 2024-04-19 11:45 | Outpatient (REF) | payer OTHER, SELFPAY ==
[2024-04-19 22:14] LABS: Bacterial Vaginosis PCR NEGATIVE (Negative); Candida Group PCR NOT DETECTED (Not Detect); Candida glab krusei PCR NOT DETECTED (Not Detect); Trichomonas vaginalis PCR NOT DETECTED (Not Detect)
[2024-04-20 04:11] LABS: CT PCR NOT DETECTED (Not Detect.); NG PCR NOT DETECTED (Not Detect.)
== END 2024-04-19 11:46 | disposition home or self-care (01) ==
LOC: HO.LAB 11:45
PROVIDERS: Visit Provider Advanced Practice Midwife
DX: N89.8 Other specified noninflammatory disorders of vagina (principal)
CPT/HCPCS: 81515; 87491; 87591

== ENCOUNTER 2024-04-20 11:35 | Outpatient (AMB) | payer OTHER, SELFPAY ==
--- NOTE | 2024-04-20 11:44 | MHC.PC.OV ---
Vital Signs 04/20/24 11:46 Height 5 ft 7 in Weight 134 lb BMI 21.0 BP 120/76 Blood Pressure Location Rt brachial Position Sitting Pulse 71 Pulse Source Pulse Oximeter Temp 97.1 F Temp Source Skin Pulse Oximetry (%) 96 Oxygen Delivery Method Room Air Intake Visit Reasons: sinus inflammation left side Intake Note: Patient is here to follow up on complaint of right side of face pain and pressure, headache started at the back of head. Warehouse Record Clerk Required: Yes Warehouse Record Clerk Language: Natural Gas Basis Trader Name: Beatriz [id number] Information Interpreted: non-clinical & clinical Linux Administrator: Not Required per policy Accompanied by: Self / Same As Patient Allergies No Known Allergies [No Known Allergies*] Allergy (Verified 04/20/24 12:52) Medication List - Last Reconciled 04/20/24 by PROMISE Wayne acetaminophen 500 mg PO Q6H PRN albuterol sulfate 90 mcg/actuation 2 puffs inhalation Q6H PRN 30 days amoxicillin-pot clavulanate 500-125 mg (Augmentin) 1 tab PO BID betamethasone, augmented 0.05 % 1 appl topical BID 7 days carbamide peroxide 6.5% (Debrox) 5 drps otic (ears) Q12H 4 days cetirizine (All Day Allergy (cetirizine)) 10 mg PO DAILY PRN 90 days cholecalciferol (vitamin D3) 50 mcg PO DAILY 90 days cyclobenzaprine 10 mg PO TID PRN 5 days diclofenac sodium 1% (Voltaren Arthritis Pain) 2 grams topical BID dicyclomine 10 mg PO QID 30 days escitalopram oxalate 10 mg PO DAILY 90 days fluticasone propionate 50 mcg/actuation 1 spray intranasal DAILY ibuprofen 800 mg (2 x 400 mg) PO TID 30 days imipramine HCl 10 mg PO BID 90 days ipratropium bromide 2 sprays intranasal TID 30 days naproxen 250 mg (1/2 x 500 mg) PO BID PRN 7 days omeprazole 20 mg PO DAILY 90 days ondansetron 4 mg PO Q8H PRN ondansetron 8 mg PO Q8H PRN 5 days sucralfate (Carafate) 5 mL PO QID tizanidine 2 mg PO BEDTIME PRN 30 days Tobacco use date assessed: 04/20/24 Dental Screening Dental Screen Date: 04/20/24 Did you have a dental visit in the last 12 months?: Yes Did you have a dental problem in the last 6 months where you did not have access to dental care?: No Was dental information given to patient?: Patient has dentist HPI sinus inflammation left side HPI Details She is a 58-year-old female with significant past medical history of chronic sinusitis, polyarthritis, erosive arthritis of hands bilaterally, allergic rhinitis The patient is presenting with right side of face extending to the back of her head pain. Patient reports that it started 2-3 days ago with the right side of her face started feeling congested Right ear feels clogged, positive maxillary sinus pressure on right side Patient reports that she was not taking her Zyrtec Reports her history of chronic sinusitis, reports that this always happens to her Reports that the pain is unbearable and she feels like she can not concentrate Will start the patient on Augmentin for sinusitis Encouraged the patient to start to use in her Zyrtec and fluticasone propionate 50 mcg/actuation 1 spray intranasally daily PFSH Medical History Allergic rhinitis Nocturnal hypoxemia Blurry vision Polyarthritis Mild recurrent major depression Urge urinary incontinence Dry mouth Neck pain Numbness Chronic sinusitis Insomnia Herpes zoster delivery delivered Surgical History Hx of colonoscopy History of esophagogastroduodenoscopy (EGD) History of appendectomy Family History Father HTN (hypertension) Mother HTN (hypertension) Sister HTN (hypertension) Brother No problems noted. Son No problems noted. Daughter No problems noted. Paternal Grandfather Colon cancer Social History Household Members: Children Household Members Other:: grandchildren Housing: House Alcohol intake: never Patient Tobacco Use Status: Current someday Tobacco user Tobacco use type: Cigarette Cigarette Packs Per Day: 0.25 Cigarettes Per Day: 3 e-Cigarette/Vaping Use: Never Used Second Hand Smoke Exposure: Yes Substance Use Type: Marijuana service: No Current occupational status: unemployed Cognitive needs: No Hearing needs: No Vision needs: Yes (glasses) Questionnaire PHQ-9 Over the last 2 weeks, how often have you been bothered by any of the following problems? 1. Little interest or pleasure in doing things: not at all 2. Feeling down, depressed, or hopeless: not at all 3. Trouble falling or staying asleep, or sleeping too much: not at all 4. Feeling tired or having little energy: not at all 5. Poor appetite or overeating: not at all 6. Feeling bad about yourself - or that you are a failure or have let yourself or your family down: not at all 7. Trouble concentrating on things, such as reading the newspaper or watching television: not at all 8. Moving or speaking so slowly that other people could have noticed. Or the opposite - being so fidgety or restless that you have been moving around a lot more than usual: not at all 9. Thoughts that you would be better off or of hurting yourself in some way: not at all Total score: 0 Depression Screening Interpretation: Negative Depression Screening Done: Yes 25698 - PHQ-9 Billing: Yes Source: Developed by Drs. Mendel Feliz, Henny Escalanet, Aydin Reyes and colleagues, with an educational karine from [employer]. Thrive Questionnaire Date Thrive assessed: 04/20/24 I am a: Patient What is your living situation today?: I have a steady place to live Within the past 12 months, did the food you bought not last and you didn't have the money to get more?: Sometimes True Within the past 12 months, did you worry whether your food would run out before you got money to buy more?: Sometimes True Do you have trouble paying for medicines?: Yes Do you have trouble getting transportation to medical appointments?: Yes Do you have trouble paying your heating and electricity bill?: Yes Do you have trouble taking care of your child, family member or friend?: No Do you have trouble with day-to-day activities such as bathing, preparing meals, shopping, managing finances, etc.?: No Are you currently unemployed and looking for a job?: I choose not to answer this question Are you interested in more education?: Yes Please select the resources that you would like help with: None Currently or been in a relationship where the following occur: No concerns reported THRIVE Score: 4 AUDIT C Alcohol Use Questionnaire (AUDIT-C) 1. How often do you have a drink containing alcohol?: Never Total Score: 0 Score Reviewed/Action Taken: No IDALMIS-7 AMB Questionnaire IDALMIS-7 Date IDALMIS - 7 assessed: 04/20/24 Feeling nervous, anxious, or on edge: 0 = Not at all Not being able to stop or control worryin = Not at all Worrying too much about different things: 0 = Not at all Trouble relaxin = Not at all Being so restless that it is hard to sit still: 0 = Not at all Becoming easily annoyed or irritable: 0 = Not at all Feeling afraid as if something awful might happen: 0 = Not at all Total IDALMIS-7 score (0-4 normal; 5-9 mild; 10-14 moderate; 15-21 severe): 0 Source: Developed by Drs. Mendel Feliz, Henny Escalante, Aydin Reyes and colleagues, with an educational karine from [employer]. IDALMIS-7 Assessment Billing IDALMIS-7 Assessment Tool: IDALMIS-7 Assessment 26208 Review of Systems Const Details: Denies chills, Denies fatigue, Denies fever(s), Denies headache(s) and Denies weakness HEENT Denies change in vision, Denies dizziness, Denies headache(s), Denies hearing loss,+ right ear pain + nasal congestion, Denies sinus pain, + sinus pressure and Denies sore throat Other: Right side of face extending to the back of head pain/pressure Card Denies chest pain, Denies lightheadedness, Denies dyspnea and Denies other (palpitations) Resp Denies cough, Denies dyspnea and Denies wheezing GI Denies abdominal pain, Denies melena, Denies hematochezia, Denies change in bowel habits, Denies dyspepsia and Denies nausea Denies hematuria and Denies dysuria Musc Denies abnormal gait, Denies myalgias, Denies arthralgias, Denies numbness and Denies tingling Skin/Breast Denies rash, Denies unusual bruising and Denies wounds Neuro Denies abnormal gait, Denies dizziness, Denies headache(s), Denies memory loss, Denies numbness, Denies Sensory deficit (Neuro), Denies tingling and Denies weakness Psych Denies anxiety, Denies depression and Denies memory loss Endo Denies cold intolerance, Denies fatigue, Denies heat intolerance, Denies polydipsia and Denies polyuria Bill/Lymph Denies easy bleeding and Denies easy bruising Aller/Immun Denies wheezing Physical exam (Primary Care) Vital Signs: Last Vital Signs Temp 97.1 F 04/20/24 11:46 Pulse 71 04/20/24 11:46 BP 120/76 04/20/24 11:46 Pulse Ox 96 04/20/24 11:46 Oxygen Delivery Method Room Air 04/20/24 11:46 BMI result Body Mass Index 21.0 Tobacco/Smoking Status: Tobacco use Status Tobacco use date assessed 04/20/24 04/20/24 11:46 Patient Tobacco Use Status Current someday Tobacco 04/20/24 11:46 Tobacco use type Cigarette 04/20/24 11:46 e-Cigarette/Vaping Use Never Used 04/20/24 11:46 PHQ-9: PHQ-9 Score PHQ-9: Total score 0 04/22/24 05:04 Depression Screening Interpretation: Negative Thrive Assessment: Date of Thrive Assessment Date Thrive assessed 04/20/24 04/20/24 11:46 Currently or been in a relationship where the following occur: No concerns reported Const Other: General: no acute distress, well developed, alert and awake Nutritional Appearance: well nourished Orientation/consciousness: patient oriented x3 HENMT Head: Yes normocephalic and Yes atraumatic, + pain to right side of occipital lobe with palpation Ears: hearing grossly normal bilaterally, right ear TM blocked with wax, left with small amount of wasx,, + pain to palpation at tragus and mastoid region on right side, + right maxillary sinus pressure General nose exam: Normal external nose present and nares are donaldo, right with yellow secretion in the canal Mouth: Normal oral and palatal mucosa present and moist mucous membranes Teeth and gingiva: dentition normal Throat: Yes oropharynx normal Eyes Pupils: Equal, round and reactive pupils present and Pupil accommodation reflex normal EOM: EOMs intact bilaterally Neck Neck: Yes normal visual inspection, Yes no lymphadenopathy and Yes trachea midline Thyroid: Thyroid normal Carotids: no bruits Lymphatic: no lymphadenopathy noted Chest Chest palpation & inspection: normal inspection of the chest Resp Effort & Inspection: normal respiratory effort Auscultation: clear to auscultation bilaterally Cardio Rate: regular rate Rhythm: regular rhythm Heart sounds: S1 normal heart sound present, S2 normal heart sound present, no gallops, no murmurs and no rubs Bruits: no abdominal aortic bruits and no carotid bruits GI Palpation (GI): No Abdominal aortic bruit present, Soft to palpation, nontender, No hepatosplenomegaly present and No Rebound tenderness present Auscultation: normal bowel sounds General: Yes no CVA tenderness Extrem General: Yes normal to inspection, No edema and No calf tenderness Psych Appearance: grossly normal Affect: normal affect Attitude: cooperative Thought process: Normal thought process present Coding Level of Care Code Est Pt Level 4 (84389) Diagnoses Chronic maxillary sinusitis J32.0 Sinusitis location: maxillary Allergic rhinitis, unspecified seasonality, unspecified trigger J30.9 Allergic rhinitis seasonality: unspecified Allergic rhinitis trigger: unspecified Impacted cerumen of right ear H61.21 Additional Codes IDALMIS-7 Assessment Billing - IDALMIS-7 Assessment Tool: IDALMIS-7 Assessment 75110 ([id number]) PHQ-9 - 74442 - PHQ-9 Billing: Yes ([id number]) Time Spent (min) 37 Assessment & Plan Assessment & Plan (1) Chronic sinusitis: Comment: acute on chronic Code(s): J32.9 - Chronic sinusitis, unspecified Category: Medical Qualifiers: Sinusitis location: maxillary Qualified Code(s): J32.0 - Chronic maxillary sinusitis Plan: Augmentin ordered (2) Allergic rhinitis: Comment: Chronic nasal congestion and blockage seems to be secondary to allergic rhinitis. Recently has been treated with a course of amoxicillin and her nasal congestion/obstruction has definitely improved. Code(s): J30.9 - Allergic rhinitis, unspecified Category: Medical Qualifiers: Allergic rhinitis seasonality: unspecified Allergic rhinitis trigger: unspecified Qualified Code(s): J30.9 - Allergic rhinitis, unspecified Plan: Encouraged patient to take a Flonase nasal spray and her Zyrtec 10 mg until nasal congestion subsides Encouraged fluids intake (3) Impacted cerumen of right ear: Code(s): H61.21 - Impacted cerumen, right ear Category: Medical Plan: Debrox eardrops ordered, uses directed Plan Follow up with PCP as scheduled next month Medications: New carbamide peroxide 6.5% (Debrox) 5 drps otic (ears) Q12H 15 mL 0RF 4 days amoxicillin-pot clavulanate 500-125 mg (Augmentin) 1 tab PO BID 7 tabs 0RF Refilled sucralfate (Carafate) swish in mouth and swallow; use after food/drink 5 mL PO QID 473 mL 0RF
[2024-04-20 11:46] VITALS: BP 120/76; PULSE 71; TEMP 36.2; O2SAT 96; BMI 21.0
== END 2024-04-20 13:04 | disposition home or self-care (01) ==
PROVIDERS: PCP Internal Medicine
DX: J32.0 Chronic maxillary sinusitis (principal); J30.9 Allergic rhinitis, unspecified; H61.21 Impacted cerumen, right ear

== ENCOUNTER → 2024-04-20 11:35 | Outpatient (BNVA) | payer OTHER, SELFPAY | PROVIDERS: PCP Internal Medicine | DX: J32.0 Chronic maxillary sinusitis (principal); J30.9 Allergic rhinitis, unspecified; H61.21 Impacted cerumen, right ear | CPT/HCPCS: 96127; 99212 ==

== ENCOUNTER 2024-05-24 10:34 | Outpatient (AMB) | payer OTHER, SELFPAY ==
--- NOTE | 2024-05-24 10:39 | A.OFFPC_ITS ---
Vital Signs 05/24/24 10:41 Height 5 ft 7 in Weight 157 lb BMI 24.6 BP 130/82 Blood Pressure Location Lt brachial Position Sitting Intake Visit Reasons: depression Intake Note: Patient here for a depression, c/o ear and abdominal pain Assistant Infant Toddler Teacher Required: Yes Assistant Infant Toddler Teacher Language: Brake Operator Heavy Duty Name: Sarah Bonilla MD Information Interpreted: non-clinical & clinical Accompanied by: Self / Same As Patient Allergies No Known Allergies [No Known Allergies*] Allergy (Verified 05/24/24 10:52) Medication List - Last Reconciled 05/24/24 by Sarah Bonilla MD acetaminophen 500 mg PO Q6H PRN albuterol sulfate 90 mcg/actuation 2 puffs inhalation Q6H PRN 30 days betamethasone, augmented 0.05 % 1 appl topical BID 7 days carbamide peroxide 6.5% (Debrox) 5 drps otic (ears) Q12H 4 days cetirizine (All Day Allergy (cetirizine)) 10 mg PO DAILY PRN 90 days cholecalciferol (vitamin D3) 50 mcg PO DAILY 90 days cyclobenzaprine 10 mg PO TID PRN 5 days diclofenac sodium 1% (Voltaren Arthritis Pain) 2 grams topical BID dicyclomine 10 mg PO QID 30 days escitalopram oxalate 10 mg PO DAILY 90 days fluticasone propionate 50 mcg/actuation 1 spray intranasal DAILY ibuprofen 800 mg (2 x 400 mg) PO TID 30 days imipramine HCl 10 mg PO BID 90 days ipratropium bromide 2 sprays intranasal TID 30 days naproxen 250 mg (1/2 x 500 mg) PO BID PRN 7 days omeprazole 20 mg PO DAILY 90 days ondansetron 4 mg PO Q8H PRN ondansetron 8 mg PO Q8H PRN 5 days sucralfate (Carafate) 5 mL PO QID tizanidine 2 mg PO BEDTIME PRN 30 days Tobacco use date assessed: 04/20/24 Dental Screening Dental Screen Date: 04/20/24 HPI HPI Comments History of Present Illness0 Details The patient is a 58-year-old female presenting with recurrent gastroesophageal symptoms and ear pain. She has a documented history of gastroesophageal reflux disease with esophagitis and gastritis. Symptoms began aggravating since August last year, leading to an emergency department visit last February with a diagnosis of gastritis. Recurrent epigastric pain noted to radiate upwards is exacerbated by lying flat; dietary management and a medication switch from omeprazole to pantoprazole are in process. In addition, she reports persistent ear discomfort and fullness attributed to allergic rhinitis and sinus pressure. Symptoms of chronic ear pain accompanied by congestion and facial swelling, notably affecting the right side. Allergies are significant enough to alter vocal quality. An allergy consult is planned, and further follow-up for ear evaluation is already in motion. Antibiotic treatments previously exacerbated gastric symptoms. Mild major depression with anxiety has been stable with escitalopram. [facility] Medical History (Updated 05/24/24 @ 11:37 by Sarah Bnoilla MD) Allergic rhinitis Nocturnal hypoxemia Blurry vision Polyarthritis Mild recurrent major depression Urge urinary incontinence Dry mouth Neck pain Numbness Chronic sinusitis Insomnia Herpes zoster delivery delivered Surgical History Hx of colonoscopy History of esophagogastroduodenoscopy (EGD) History of appendectomy Family History Father HTN (hypertension) Mother HTN (hypertension) Sister HTN (hypertension) Brother No problems noted. Son No problems noted. Daughter No problems noted. Paternal Grandfather Colon cancer Social History Household Members: Children Household Members Other:: grandchildren Housing: House Alcohol intake: never Patient Tobacco Use Status: Current someday Tobacco user Tobacco use type: Cigarette Cigarette Packs Per Day: 0.25 Cigarettes Per Day: 3 e-Cigarette/Vaping Use: Never Used Second Hand Smoke Exposure: Yes Substance Use Type: Marijuana service: No Current occupational status: unemployed Cognitive needs: No Hearing needs: No Vision needs: Yes (glasses) Questionnaire Thrive Questionnaire Date Thrive assessed: 04/20/24 IDALMIS-7 AMB Questionnaire IDALMIS-7 Date IDALMIS - 7 assessed: 04/20/24 Source: Developed by Drs. Mendel Feliz, Henny Escalante, Aydin Reyes and colleagues, with an educational karine from [employer]. Review of Systems Const All systems reviewed & are unremarkable except as noted in HPI and below Card Denies chest pain at rest, Denies chest pain with activity, Denies edema, Denies irregular heart rhythm, Denies claudication, Denies dyspnea, Denies dyspnea on exertion, Denies orthopnea, Denies paroxysmal nocturnal dyspnea and Denies slow heart rate Resp Denies cough, Denies dyspnea and Denies dyspnea on exertion GI Denies abdominal pain, Denies change in bowel habits, Denies excessive flatus, Denies nausea and Denies vomiting Physical exam (Primary Care) Vital Signs: Last Vital Signs BP 130/82 05/24/24 10:41 BMI result Body Mass Index 24.6 Tobacco/Smoking Status: Tobacco use Status Tobacco use date assessed 04/20/24 05/24/24 10:40 Patient Tobacco Use Status Current someday Tobacco 05/24/24 10:40 Tobacco use type Cigarette 05/24/24 10:40 e-Cigarette/Vaping Use Never Used 05/24/24 10:40 Thrive Assessment: Date of Thrive Assessment Date Thrive assessed 04/20/24 05/24/24 10:40 Resp Effort & Inspection: normal respiratory effort Auscultation: clear to auscultation bilaterally Cardio Jugular venous distension: no JVD Rate: regular rate Rhythm: regular rhythm Heart sounds: S1 normal heart sound present and S2 normal heart sound present Extrem General: Yes full ROM Coding Level of Care Code Est Pt Level 4 (65306) Complex EM visit Add On G2211 Diagnoses Allergic rhinitis, unspecified seasonality, unspecified trigger J30.9 Allergic rhinitis trigger: unspecified Allergic rhinitis seasonality: unspecified Chronic maxillary sinusitis J32.0 Sinusitis location: maxillary GERD (gastroesophageal reflux disease) K21.9 Mild recurrent major depression F33.0 Otalgia H92.09 Time Spent (min) 22 Assessment & Plan Assessment & Plan (1) Allergic rhinitis: Comment: Chronic nasal congestion and blockage seems to be secondary to allergic rhinitis. Recently has been treated with a course of amoxicillin and her nasal congestion/obstruction has definitely improved. Code(s): J30.9 - Allergic rhinitis, unspecified Category: Medical Qualifiers: Allergic rhinitis trigger: unspecified Allergic rhinitis seasonality: unspecified Qualified Code(s): J30.9 - Allergic rhinitis, unspecified (2) Chronic sinusitis: Comment: acute on chronic Code(s): J32.9 - Chronic sinusitis, unspecified Category: Medical Qualifiers: Sinusitis location: maxillary Qualified Code(s): J32.0 - Chronic maxillary sinusitis (3) GERD (gastroesophageal reflux disease): Code(s): K21.9 - Gastro-esophageal reflux disease without esophagitis Category: Medical (4) Mild recurrent major depression: Code(s): F33.0 - Major depressive disorder, recurrent, mild Category: Medical (5) Otalgia: Code(s): H92.09 - Otalgia, unspecified ear Category: Medical Plan Pantoprazole is prescribed to improve gastroesophageal symptoms. Avoidance of food intake three hours before sleeping is reinforced. Management of sinus pressure and ear discomfort will include accounting software specialist evaluation and antibiotic treatment. Smoking cessation assistance continues, as smoking affects both gastric and pulmonary systems. Patient was informed and verbally consented to the use of an ambient scribe for clinic note documentation during this visit. During the consultation, we reviewed the patient's current diagnoses and management options extensively. Pantoprazole was advised as a more potent pharmacological intervention to manage her gastroesophageal symptoms due to its enhanced acid-suppressive efficacy. I emphasized the importance of lifestyle adjustments, including specific dietary practices, such as not consuming any food within three hours before lying down to mitigate symptoms. Discussions also included potential allergy testing through an accounting software specialist referral to explore the patient's chronic rhonchi, sinus, and ear ailments. Usage protocols for prescribed antibiotics were clarified, emphasizing anticipated side effects. Follow-up was scheduled with specific anticipatory guidance addressing signs warranting medical attention. Orders: Referrals Allergy & Immunology Referral J30.9 - Allergic rhinitis, unspecified Medications: New pantoprazole 40 mg PO DAILY 90 tabs 1RF 90 days amoxicillin 500 mg PO BID 14 caps 0RF 7 days Refilled sucralfate (Carafate) swish in mouth and swallow; use after food/drink 5 mL PO QID 473 mL 0RF fluticasone propionate 50 mcg/actuation 1 spray intranasal DAILY 16 mL 1RF for allergies Discontinued naproxen Discontinued Reason: Patient Completed Course 250 mg (1/2 x 500 mg) PO BID 7 days PRN 14 tabs 0RF pain omeprazole Discontinued Reason: Patient Completed Course 20 mg PO DAILY 90 days 90 caps 1RF Patient Instructions: - Take pantoprazole as prescribed once a day. - Avoid eating food three hours before bedtime. - Attend the upcoming accounting software specialist appointment as scheduled. - Monitor for any worsening of symptoms or adverse effects from antibiotics. - Increase efforts toward complete smoking cessation. - Stay hydrated and maintain a balanced diet as per gastrointestinal recommendations. - Use two pillows while sleeping to reduce reflux symptoms.
[2024-05-24 10:41] VITALS: BP 130/82; BMI 24.6
== END 2024-05-24 11:07 | disposition home or self-care (01) ==
LOC: HO.HMCH 10:35
PROVIDERS: PCP Internal Medicine; Visit Provider Internal Medicine
DX: J30.9 Allergic rhinitis, unspecified (principal); J32.0 Chronic maxillary sinusitis; K21.9 Gastro-esophageal reflux disease without esophagitis; F33.0 Major depressive disorder, recurrent, mild; H92.09 Otalgia, unspecified ear

== ENCOUNTER → 2024-05-24 10:34 | Outpatient (BNVA) | payer OTHER, SELFPAY | PROVIDERS: PCP Internal Medicine; Visit Provider Internal Medicine | DX: J30.9 Allergic rhinitis, unspecified (principal); J32.0 Chronic maxillary sinusitis; K21.9 Gastro-esophageal reflux disease without esophagitis; H92.09 Otalgia, unspecified ear; F33.0 Major depressive disorder, recurrent, mild | CPT/HCPCS: 99212 ==

== ENCOUNTER 2024-07-25 09:59 | Outpatient (REF) | payer OTHER, SELFPAY | END 2024-07-25 10:00 | disposition home or self-care (01) | LOC: HO.LAB 09:59 | PROVIDERS: PCP Internal Medicine | DX: J02.0 Streptococcal pharyngitis (principal) | CPT/HCPCS: 87880; 99212 ==

== ENCOUNTER 2024-07-25 09:59 | Outpatient (AMB) | payer OTHER, SELFPAY ==
--- NOTE | 2024-07-25 10:32 | AM.OFFWIN_ITS ---
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 History of Present Illness - The patient is a 59-year-old female pr esenting with a persistent sore throat and neck pain/swelling for over a week. - Additional symptoms include general fa tigue and discomfort in the ears. - There was no reported fever, and she c ompleted a seven-day course of amox icillin 500mg twice a day, she reports no improvement in her symptoms at all. She was prescribed this abx by her PCP previously but never used it. - The glands in her neck were reported a s swollen, but no fevers or cough or other significant symptoms were noted. Physical Exam General: Cooperative, healthy appearing, comfortable, no acute distress and well developed Orientation: Patient oriented x3 Limitations: No limitations Head: Normal to inspection Ears: Hearing grossly normal bilaterally, EAC normal, TM's normal bilaterally Nose: Normal External nose present Face and sinus: Normal facial exam Mouth: Normal oral mucosa, posterior oropharynx with erythema and swelling of the uvula and tonsils, airway is patent Eyes: Appearance normal, both eyes and all related structures Neck: Normal visual inspection and Yes full ROM, Cervical lymphadenopathy Respiratory: Normal respiratory effort and able to speak in complete sentences. Skin: No rashes or lesions noted Neuro: Patient oriented x3 Extremities: Normal to inspection Plan The patient tested positive for streptococcal pharyngitis and, given the inefficacy of a 7-day course of amoxicillin, doxycycline was prescribed as an alternative treatment. The patient will take this as directed. Ibuprofen 600 mg every six hours is recommended for pain management. She is advised to monitor her symptoms and return for further evaluation if her condition does not improve or worsens. Consideration for follow-up includes assessment for persistent gland swelling and potential further diagnostic evaluations if needed. Patient was informed and verbally consented to the use of an ambient scribe for clinic note documentation during this visit. [facility] Medical History Allergic rhinitis Nocturnal hypoxemia Blurry vision Polyarthritis Mild recurrent major depression Urge urinary incontinence Dry mouth Neck pain Numbness Chronic sinusitis Insomnia Herpes zoster delivery delivered Surgical History Hx of colonoscopy History of esophagogastroduodenoscopy (EGD) History of appendectomy Family History Father HTN (hypertension) Mother HTN (hypertension) Sister HTN (hypertension) Brother No problems noted. Son No problems noted. Daughter No problems noted. Paternal Grandfather Colon cancer Social History Household Members: Children Household Members Other:: grandchildren Housing: House Alcohol intake: never Patient Tobacco Use Status: Current someday Tobacco user Tobacco use type: Cigarette Cigarette Packs Per Day: 0.25 Cigarettes Per Day: 3 e-Cigarette/Vaping Use: Never Used Second Hand Smoke Exposure: Yes Substance Use Type: Marijuana service: No Current occupational status: unemployed Cognitive needs: No Hearing needs: No Vision needs: Yes (glasses) Review of Systems Const All systems reviewed & are unremarkable except as noted in HPI and below Physical Exam Vital Signs: Last Vital Signs Temp 97.8 F 07/25/24 10:47 Pulse 75 07/25/24 10:47 BP 122/80 07/25/24 10:47 Pulse Ox 95 07/25/24 10:47 Oxygen Delivery Method Room Air 07/25/24 10:47 Results AMB Rapid Strep AMB Rapid Strep Positive Last Edit by SHAKEEL Bassett on 07/25/24 10:57 Results Reviewed Results Reviewed: Laboratory Last Values Strep Scn Rapid Clinic Positive 07/25/24 10:56 Assessment & Plan Assessment & Plan (1) Strep pharyngitis: Code(s): J02.0 - Streptococcal pharyngitis Plan: Rapid strep in office was positive. The patient tested positive for streptococcal pharyngitis and, take an old prescription of a 7-day course of amoxicillin, which didn't improve her symptoms. I have prescribed Augmentin for 7 days to augment the original RX. The patient will take this as directed. Ibuprofen 600 mg every six hours is recommended for pain management. She is advised to monitor her symptoms and return for further evaluation if her condition does not improve or worsens. Consideration for throat culture if no improvement. Patient was informed and verbally consented to the use of an ambient scribe for clinic note documentation during this visit. Orders: Orders AMB Rapid Strep Screen Today Z13.9 - Encounter for screening, unspecified Medications: New amoxicillin-pot clavulanate 875-125 mg 1 tab PO Q12H 14 tabs 0RF Coding Level of Care Code Est Pt Level 3 (37719) Diagnoses Strep pharyngitis J02.0
[2024-07-25 10:47] VITALS: BP 122/80; PULSE 75; TEMP 36.6; O2SAT 95
== END 2024-07-25 11:19 | disposition home or self-care (01) ==
PROVIDERS: PCP Internal Medicine; Visit Provider Physician Assistant
DX: J02.0 Streptococcal pharyngitis (principal); Z13.9 Encounter for screening, unspecified

== ENCOUNTER 2024-08-31 14:35 | Outpatient (AMB) | payer OTHER, SELFPAY ==
[2024-08-31 14:41] VITALS: BP 124/72; PULSE 71; O2SAT 96; BMI 23.9
--- NOTE | 2024-08-31 14:41 | MHC.OFFVIS ---
Vital Signs 08/31/24 14:41 Height 5 ft 7 in Weight 152 lb 12.485 oz BMI 23.9 BP 124/72 Blood Pressure Location Lt brachial Position Sitting Pulse 71 Pulse Source Pulse Oximeter Pulse Oximetry (%) 96 Oxygen Delivery Method Room Air Intake Visit Reasons: erosive OA Intake Note: Patient last seen by Doctor Daniel Alberts on 05/08/23. Presents today for Erosive OA follow up. 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 Allergies No Known Allergies (No Known Allergies*) Allergy (Verified 08/31/24 14:42) Medication List - Last Reconciled 08/31/24 by Marlee Kenyon MD acetaminophen 500 mg PO Q6H PRN albuterol sulfate 90 mcg/actuation 2 puffs inhalation Q6H PRN 30 days cetirizine (All Day Allergy (cetirizine)) 10 mg PO DAILY PRN 90 days cholecalciferol (vitamin D3) 50 mcg PO DAILY 90 days cyclobenzaprine 10 mg PO TID PRN 5 days diclofenac sodium 1% (Voltaren Arthritis Pain) 2 grams topical BID dicyclomine 10 mg PO QID 30 days escitalopram oxalate 10 mg PO DAILY 90 days fluticasone propionate 50 mcg/actuation 1 spray intranasal DAILY ibuprofen 800 mg (2 x 400 mg) PO TID 30 days imipramine HCl 10 mg PO BID 90 days ondansetron 4 mg PO Q8H PRN pantoprazole 40 mg PO DAILY 90 days sucralfate (Carafate) 5 mL PO QID HPI Comments Details: Patient is a 59 y.o. female with GERD, Celiac disease, Depression and polyarticular OA complicated by erosive OA here today for follow up Interval History: Patient last seen 05/08/[address] Alberts. At that time she was following up for her erosive hand OA. Reported that she was doing worse with PIP pain, AM stiffness and hand swelling. Also complained of bilateral medial knee pain. She was recommended to use naproxen twice a day for 2 weeks then prn. She was also advised to get parrafin wax bath Today, Complaining of severe neck and back pain Cannot stand for longer than 10 mins without experiencing back pain Also complaining of pain from shingles Knee pain as well Rheumatologic History: Erosive OA Current Rheumatology Medication(s): Topical diclofenac 1% PFSH Medical History Allergic rhinitis Nocturnal hypoxemia Blurry vision Polyarthritis Mild recurrent major depression Urge urinary incontinence Dry mouth Neck pain Numbness Chronic sinusitis Insomnia Herpes zoster delivery delivered Surgical History Hx of colonoscopy History of esophagogastroduodenoscopy (EGD) History of appendectomy Family History Father HTN (hypertension) Mother HTN (hypertension) Sister HTN (hypertension) Brother No problems noted. Son No problems noted. Daughter No problems noted. Paternal Grandfather Colon cancer Social History Household Members: Children Household Members Other:: grandchildren Housing: House Alcohol intake: never Patient Tobacco Use Status: Current someday Tobacco user Tobacco use type: Cigarette Cigarette Packs Per Day: 0.25 Cigarettes Per Day: 3 e-Cigarette/Vaping Use: Never Used Second Hand Smoke Exposure: Yes Substance Use Type: Marijuana service: No Current occupational status: unemployed Cognitive needs: No Hearing needs: No Vision needs: Yes (glasses) Review of Systems Const Details: Review of Systems Constitutional: Denies fever, chills, weight loss ENT: Denies vision changes, eye pain or eye redness, dental caries, dry mouth GI: Denies nausea, vomiting, diarrhea, abdominal pain, change in BM Pulm: Denies SOB, MINOR, hemoptysis, wheezing Cards: Denies chest pain, palpitations Skin: Denies Raynaud's, rash, nail changes, photosensitivity, HEEL SEAT LASTER: Denies headaches, weakness, paresthesias, recurrent falls MSK: as per HPI All other systems reviewed and are unremarkable except noted above Physical Exam Vital Signs: Last Vital Signs Pulse 71 08/31/24 14:41 BP 124/72 08/31/24 14:41 Pulse Ox 96 08/31/24 14:41 Oxygen Delivery Method Room Air 08/31/24 14:41 BMI result Body Mass Index 23.9 Vital signs reviewed Physical Examination CONSTITUITIONAL Patient alert and cooperative. Well appearing and in no apparent painful distress HEENT Conjunctiva and sclera clear. No lymphadenopathy. CHEST/RESPIRATORY SYSTEM Normal respiratory effort and able to speak in complete sentences. Clear to auscultation bilaterally. No crackles, rales, rhonchi, wheezes heard. CARDIAC SYSTEM Regular rate and rhythm. S1 and S2 heard no murmurs. Radial pulses intact bilaterally MSK Hands Able to make a fist bilaterally. Prominent Heberden and Giselle's nodes noted bilaterally. With tenderness to palpation of the Heberden nodes. No tenderness to palpation or synovitis of the MCPs. Wrists Right Wrist: Full ROM. 70 degrees of wrist flexion, 80 degrees of wrist extension. No swelling or TTP Left Wrist: Full ROM. 70 degrees of wrist flexion, 80 degrees of wrist extension. No swelling or TTP Elbows Right Elbow: Full ROM. No swelling or TTP. No TTP of the medial and lateral epicondyles Left Elbow: Full ROM. No swelling or TTP. No TTP of the medial and lateral epicondyles Shoulders Right shoulder: Full ROM. No swelling noted. TTP of the AC joint Left shoulder: Full ROM. No swelling noted. TTP AC joint Knees Right knee: Full ROM. No swelling noted. Left knee: Full ROM. No swelling noted. Tenderness to palpation of the medial joint line bilaterally. Crepitations felt. Ankles Right ankle: Good ankle dorsiflexion and plantar flexion. No swelling. No TTP of the ankle joint Left ankle: Good ankle dorsiflexion and plantar flexion. No swelling. No TTP of the ankle joint Feet Right foot: Negative squeeze test Left foot: Negative squeeze test Tender points? No tenderness to palpation of the bilateral trapezius, supraspinatus, anterior costochondral junctions, bilateral suboccipital muscle insertions SKIN No rashes Office Procedures AMB Joint Injection/Aspiration Joint Injection/Aspiration Details: Procedure was explained to the patient and informed consent was obtained. ? Risks associated with the procedure were discussed with the patient including but not limited to bleeding, infection, drug reactions and reactions to the topical anesthetic. Patient made aware of signs to look out for infectious complications. The area of interest was identified and confirmed with patient. ?This was subsequently cleaned with chlorhexidine x 2. ? The area was then anesthetized using ethyl chloride spray. 40 mg Kenalog with 1 cc 1% lidocaine was injected without issue. ?Minimal to no bleeding. ?Patient tolerated procedure. Primary Site: right knee Prep: site was prepped using aseptic technique and ethochloride spray was applied Injected: 40 mg of, Kenalog, with 1 mL of, 1% plain lidocaine and in the joint Approach Used: anterolateral Procedure: The patient tolerated the procedure well Coding 62682 - Large joint Procedure code (CPT) selection complete AMB Joint Injection/Aspiration Joint Injection/Aspiration Details: Procedure was explained to the patient and informed consent was obtained. ? Risks associated with the procedure were discussed with the patient including but not limited to bleeding, infection, drug reactions and reactions to the topical anesthetic. Patient made aware of signs to look out for infectious complications. The area of interest was identified and confirmed with patient. ?This was subsequently cleaned with chlorhexidine x 2. ? The area was then anesthetized using ethyl chloride spray. 40 mg Kenalog with 1 cc 1% lidocaine was injected without issue. ?Minimal to no bleeding. ?Patient tolerated procedure. Primary Site: left knee Prep: site was prepped using aseptic technique and ethochloride spray was applied Injected: 40 mg of, Kenalog, with 1 mL of and 1% plain lidocaine Approach Used: anterolateral Procedure: The patient tolerated the procedure well Coding 63614 - Large joint Procedure code (CPT) selection complete Office Meds lidocaine (PF) 10 mg/mL (1 %) injection solution Performing Provider: Marlee Kenyon MD Performing Location: [facility] Administered by: Marlee Kenyon MD on 08/31/24 15:31 Dose Route Admin Location Dispensed Lot Number Expiration Date [facility] Pension Adviser 1 mL intra-articular right knee 2 mL [id number] 05/07/26 05305-421-46 [employer] Total Dispensed Waste 2 mL 50 % Kenalog 40 mg/mL suspension for injection Performing Provider: Marlee Kenyon MD Performing Location: [facility] [place] [facility] Administered by: Marlee Kenyon MD on 08/31/24 15:31 Dose Route Admin Location Dispensed Lot Number Expiration Date [facility] Pension Adviser 40 mg intra-articular right knee 1 mL [id number] 06/07/25 [address]-9 [facility] Total Dispensed Waste 1 mL 0 % lidocaine (PF) 10 mg/mL (1 %) injection solution Performing Provider: Marlee Kenyon MD Performing Location: [facility] [place] [facility] Administered by: Marlee Kenyon MD on 08/31/24 15:31 Dose Route Admin Location Dispensed Lot Number Expiration Date [facility] Pension Adviser 1 mL intra-articular left knee 2 mL [id number] 05/07/26 27686-346-17 [employer] Total Dispensed Waste 2 mL 50 % Kenalog 40 mg/mL suspension for injection Performing Provider: Marlee Kenyon MD Performing Location: [facility] [place] [facility] Administered by: Marlee Kenyon MD on 08/31/24 15:31 Dose Route Admin Location Dispensed Lot Number Expiration Date [facility] Pension Adviser 40 mg intra-articular left knee 1 mL [id number] 06/07/25 [address]-1 [employer] Total Dispensed Waste 1 mL 0 % Results Reviewed Results Reviewed: Laboratory Tests 03/11/24 14:08 WBC 6.5 RBC 4.74 Hgb 13.3 Hct 41.7 Plt Count 223 D Sodium 145 Potassium 3.8 Chloride 112 H Carbon Dioxide 28 BUN 13 Creatinine 0.77 AST 29 ALT 30 XR Bilateral Hands 11/2021 FINDINGS: Left hand: Joint space narrowing and osteophytes in a distal distribution with central erosions of the 2nd and 3rd DIP joints, as well as marked narrowing with dorsal osteophyte formation of the 4th DIP joint has slightly progressed. No active erosion is evident. No acute osseous abnormality. Right hand: Narrowing and central erosive changes of the 3rd DIP joint has significantly progressed. Cannot exclude an active erosion. Narrowing and osteophyte formation of the 4th DIP joint is similar. Otherwise unremarkable. IMPRESSION: Left hand: Arthritic changes with findings suggesting a chronic erosive osteoarthritis of the 2nd, 3rd, and 4th DIP joints has slightly progressed. Right hand: Progression of erosive osteoarthritis of the 3rd DIP joint. Cannot exclude an active erosion. Otherwise no significant change. Assessment & Plan Assessment & Plan (1) Neck pain: Code(s): M54.2 - Cervicalgia Category: Medical Plan: #Neck Pain Patient is a 59-year-old female with polyarticular osteoarthritis here today complaining of neck pain. It is likely that she has degenerative joint disease in her neck associated with muscle tension. We will check x-rays of her neck and if this confirms it we will send her to pain management for further evaluation Plan - XR C spine - If evidence of degenerative disease will send to pain management - Gabapentin 100mg at night to help with neck pain and shingles pain (2) Erosive osteoarthritis of hands, bilateral: Code(s): M15.4 - Erosive (osteo)arthritis Category: Medical Plan: #Erosive hand OA Patient with erosive hand osteoarthritis. Which based on her last x-rays had progressed. The unfortunate thing about erosive osteoarthritis is that there is no current treatment to help delay progression. There has been some studies looking at Prolia but this has not been FDA approved. We will continue to monitor and recommend that she continue the topical diclofenac Plan - Topical diclofenac 1% - RTC 6 months (3) Bilateral primary osteoarthritis of knee: Code(s): M17.0 - Bilateral primary osteoarthritis of knee Category: Medical Plan: #Bilateral knee OA Patient with bilateral knee osteoarthritis. Received bilateral steroid injection today Plan I spent 30 minutes reviewing the record and labs, taking a history, examining the patient, discussing the treatment plan, ordering diagnostic work up and documenting in the medical record Orders: Orders AMB Joint Injection/Aspiration Today M17.0 - Bilateral primary osteoarthritis of knee AMB Joint Injection/Aspiration Today M17.0 - Bilateral primary osteoarthritis of knee XR cervical spine 3V Today M54.2 - Cervicalgia Medications: New gabapentin 100 mg PO BEDTIME 90 caps 1RF M54.2 - Cervicalgia Coding Level of Care Code Est Pt Level 4 (55005) Complex EM visit Add On G2211 Diagnoses Neck pain M54.2 Erosive osteoarthritis of hands, bilateral M15.4 Bilateral primary osteoarthritis of knee M17.0 CPT Codes Coding - 00884 Large joint: 71021 - Large joint ([id number]) Coding - 14778 Large joint: 86845 - Large joint ([id number])
== END 2024-08-31 15:27 | disposition home or self-care (01) ==
LOC: HO.RHE 14:36
PROVIDERS: PCP Internal Medicine; Visit Provider Student in an Organized Health Care Education/Training Program
DX: M54.2 Cervicalgia (principal); M15.4 Erosive (osteo)arthritis; M17.0 Bilateral primary osteoarthritis of knee
CPT/HCPCS: 20610; 99214

== ENCOUNTER → 2024-08-31 14:35 | Outpatient (BNVA) | payer OTHER, SELFPAY | PROVIDERS: PCP Internal Medicine; Visit Provider Student in an Organized Health Care Education/Training Program | DX: M17.0 Bilateral primary osteoarthritis of knee (principal) | CPT/HCPCS: 20610; 99212; J2003; J3300 ==

== ENCOUNTER 2024-08-31 15:41 | Outpatient (REF) | payer OTHER, SELFPAY ==
--- NOTE | ~2024-08-31 | XR_ITS ---
EXAMINATION: XR CERVICAL SPINE CLINICAL INFORMATION: M54.2 - Cervicalgia COMPARISON: None available. TECHNIQUE: 3 views of the cervical spine were obtained. FINDINGS: There is mild reversal of the normal cervical lordosis. No fractures are identified. There is no prevertebral soft tissue swelling. C3-4: There is subtle anterolisthesis. C4-5: There is subtle anterolisthesis. There is mild facet osteophyte formation. Uncovertebral osteophytes are present on the right. C5-6: There is moderate disc space narrowing and endplate osteophytes with subtle retrolisthesis. C6-7: There is moderate disc space narrowing with endplate osteophytes and facet sclerosis with osteophytes. C7-T1: There is subtle anterolisthesis. XR/XR cervical spine 3V IMPRESSION: There is mild reversal of cervical lordosis. This can be related to degenerative changes, positioning, muscle spasm, or posterior soft tissue injury. Degenerative changes. Electronically signed by: Asael Pollock MD 08/31/2024 04:28 PM EDT
== END 2024-08-31 15:42 | disposition home or self-care (01) ==
LOC: HO.XRAY 15:41
PROVIDERS: PCP Internal Medicine; Visit Provider Student in an Organized Health Care Education/Training Program
DX: M54.2 Cervicalgia (principal)
CPT/HCPCS: 72040

== ENCOUNTER → 2024-08-31 15:44 | Outpatient (BNV) | payer OTHER, SELFPAY | PROVIDERS: PCP Internal Medicine; Visit Provider Radiology Diagnostic Radiology | DX: M43.02 Spondylolysis, cervical region (principal) | CPT/HCPCS: 72040 ==

== ENCOUNTER 2024-09-13 07:12 | Outpatient (REF) | payer OTHER, SELFPAY ==
[2024-09-13 07:21] LABS: MANUAL DIFF FLAG NO
[2024-09-13 07:50] LABS: Hematocrit 42.0 % (37.0-47.0); Hemoglobin 13.6 g/dl (12.0-16.0); Imm Gran Abs Auto 0.03 X10*3/uL (0.00-0.03); Imm Gran Pct Auto 0.4 % (0.0-0.4); Lymphocytes Absolute Auto 3.3 X10*3/uL (1.2-4.9); Mean Corpuscular HGB Conc 32.4 g/dl (31.0-35.0); Mean Corpuscular Hemoglobin 28.2 pg (27.0-33.0); Mean Corpuscular Volume 87.0 fL (80.0-98.0); NRBC Abs Auto 0.000 X10*3/uL (0.0-0.012); NRBC Pct Auto 0.0 /100WBC (0.0-0.2); Platelet Count 270 X10*3/uL (160-400); Red Blood Count 4.83 X10*6/uL (4.20-5.50); White Blood Count 7.9 X10*3/uL (4.8-10.8)
[2024-09-13 08:35] LABS: Alanine Aminotransferase 18 U/L (0-31); Albumin Level 4.5 g/dL (3.5-5.0); Alkaline Phosphatase 122 U/L (39-117); Anion Gap 10 (12-20); Aspartate Amino Transferase 20 U/L (5-31); Blood Urea Nitrogen 16 mg/dL (9-16); Calcium 9.4 mg/dL (8.4-10.2); Carbon Dioxide 26 mmol/L (22-29); Chloride 109 mmol/L (96-108); Estimated Glomerular Filt Rate > 60; Potassium 4.2 mmol/L (3.3-5.1); Sodium 141 mmol/L (135-145); Total Protein 7.3 g/dL (6.5-8.0)
[2024-09-13 08:53] LABS: Thyroid Stimulating Hormone 2.08 uIU/mL (0.32-4.0)
[2024-09-14 14:24] LABS: Immunoglobulin A 310 mg/dL (47-310); Transglutaminase Ab IgG <1.0 U/mL
== END 2024-09-13 07:13 | disposition home or self-care (01) ==
LOC: HO.LAB 07:12
PROVIDERS: Visit Provider Internal Medicine
DX: E55.9 Vitamin D deficiency, unspecified (principal); K90.0 Celiac disease; R10.13 Epigastric pain; R63.4 Abnormal weight loss
CPT/HCPCS: 36415; 80053; 82306; 82784; 84443; 85025; 86258; 86364

== ENCOUNTER 2024-09-28 14:31 | Outpatient (AMB) | payer OTHER, SELFPAY ==
--- NOTE | 2024-09-28 14:43 | MHC.PC.OV ---
Intake Visit Reasons: Cervicalgia Allergies No Known Allergies (No Known Allergies*) Allergy (Verified 08/31/24 14:42) Tobacco use date assessed: 04/20/24 Dental Screening Dental Screen Date: 04/20/24 [facility] Medical History Allergic rhinitis Nocturnal hypoxemia Blurry vision Polyarthritis Mild recurrent major depression Urge urinary incontinence Dry mouth Neck pain Numbness Chronic sinusitis Insomnia Herpes zoster delivery delivered Surgical History Hx of colonoscopy History of esophagogastroduodenoscopy (EGD) History of appendectomy Family History Father HTN (hypertension) Mother HTN (hypertension) Sister HTN (hypertension) Brother No problems noted. Son No problems noted. Daughter No problems noted. Paternal Grandfather Colon cancer Social History Household Members: Children Household Members Other:: grandchildren Housing: House Alcohol intake: never Patient Tobacco Use Status: Current someday Tobacco user Tobacco use type: Cigarette Cigarette Packs Per Day: 0.25 Cigarettes Per Day: 3 e-Cigarette/Vaping Use: Never Used Second Hand Smoke Exposure: Yes Substance Use Type: Marijuana service: No Current occupational status: unemployed Cognitive needs: No Hearing needs: No Vision needs: Yes (glasses) Questionnaire Thrive Questionnaire Date Thrive assessed: 04/20/24 IDALMIS-7 AMB Questionnaire IDALMIS-7 Date IDALMIS - 7 assessed: 04/20/24 Source: Developed by Drs. Mendel Feliz, Henny Escalante, Aydin Reyes and colleagues, with an educational karine from [employer]. Physical exam (Primary Care) Tobacco/Smoking Status: Tobacco use Status Tobacco use date assessed 04/20/24 09/06/24 10:44 Patient Tobacco Use Status Current someday Tobacco 09/06/24 10:44 Tobacco use type Cigarette 09/06/24 10:44 e-Cigarette/Vaping Use Never Used 09/06/24 10:44 Thrive Assessment: Date of Thrive Assessment Date Thrive assessed 04/20/24 09/06/24 10:44 Coding
--- NOTE | 2024-09-28 14:44 | A.OFFVIS_ITS ---
Vital Signs 09/28/24 14:46 Weight 149 lb BP 119/77 Blood Pressure Location Lt brachial Position Sitting Respiration 18 Pulse 67 Pulse Source Pulse Oximeter Pulse Oximetry (%) 100 Oxygen Delivery Method Room Air Intake Visit Reasons: Cervicalgia Backside Grinder Required: Yes Backside Grinder Name: [id number] Allergies No Known Allergies (No Known Allergies*) Allergy (Verified 09/28/24 14:45) HPI Comments Details: Lorena is very pleasant Kazakh-speaking 59 years old female who presents in my office with complains on neck pain. She reported that this pain started 4 months ago. She does not know what started the problem. She reports her pain today 8/10 and 10/10 in the area of her neck. She reports that mobility of her cervical spine is greatly decreased. 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 She reports that weather changes extreme heat in the weather and extreme cold in the weather aggravate her pain, she reports that heat application makes her pain slightly better. She reports her pain is lasting throughout the day and it is 9/10 in intensity. She tried Tylenol to help her pain to help is very minimal with maximal doses of Tylenol, she also was prescribed cyclobenzaprine however cyclobenzaprine gives her constipation. She was switched to tizanidine currently she is taking 10 mg of tizanidine q.h.s.. She reports that helps her to stay asleep at night. It cause extreme sleepiness and she can not take it during the daytime. She denies any physical therapy or chiropractic manipulations to treat her condition. She had x-ray done for her neck and results are dictated as below. She never had any injections. Her past medical history significant for rare episodes of asthma, past surgical history significant for appendicitis, she denies smoking cigarettes, denies drinking alcohol , she drinks Coca-Cola and she denies recreational drugs. FORMERLY [facility], [facility]–1983 Medical History Allergic rhinitis Nocturnal hypoxemia Blurry vision Polyarthritis Mild recurrent major depression Urge urinary incontinence Dry mouth Neck pain Numbness Chronic sinusitis Insomnia Herpes zoster delivery delivered Surgical History Hx of colonoscopy History of esophagogastroduodenoscopy (EGD) History of appendectomy Family History Father HTN (hypertension) Mother HTN (hypertension) Sister HTN (hypertension) Brother No problems noted. Son No problems noted. Daughter No problems noted. Paternal Grandfather Colon cancer Social History Household Members: Children Household Members Other:: grandchildren Housing: House Alcohol intake: never Patient Tobacco Use Status: Current someday Tobacco user Tobacco use type: Cigarette Cigarette Packs Per Day: 0.25 Cigarettes Per Day: 3 e-Cigarette/Vaping Use: Never Used Second Hand Smoke Exposure: Yes Substance Use Type: Marijuana service: No Current occupational status: unemployed Cognitive needs: No Hearing needs: No Vision needs: Yes (glasses) Review of Systems Const All systems reviewed & are unremarkable except as noted in HPI and below ENT Reports Normal hearing present Neuro Reports Normal hearing present, Denies Abnormal speech present, Denies confusion and Denies Sensory deficit (Neuro) Psych Denies confusion Physical Exam Vital Signs: Last Vital Signs Pulse 67 09/28/24 14:46 Resp 18 09/28/24 14:46 BP 119/77 09/28/24 14:46 Pulse Ox 100 09/28/24 14:46 Oxygen Delivery Method Room Air 09/28/24 14:46 Const General: no acute distress; No confusion Orientation/consciousness: patient oriented x3 and No confusion Eyes General: appearance normal, both eyes and all related structures Pupils: Equal, round and reactive pupils present EOM: EOMs intact bilaterally Neck Other: Limited range of motion of the cervical spine. Axial compression aggravates patient's pain. Heat patient's pain. Flexing had backwards aggravate her pain. Spurling test is negative bilaterally. Lhermitte test is negative. Chest Chest palpation & inspection: normal inspection of the chest Resp Effort & Inspection: normal respiratory effort, able to speak in complete sentences, normal respiratory pattern, no audible wheezes and no cough Cardio Jugular venous distension: no JVD GI Inspection: Yes normal to inspection Neuro General: patient oriented x3, gait normal and No confusion Cranial nerves: Yes CN's II-XII intact bilaterally, Yes Equal, round and reactive pupils present, Yes Normal hearing present and Yes Ability to bilaterally elevate shoulders present Speech: No Abnormal speech present Gait exam (Neuro): Normal gait present Motor exam (neuro): 5/5 motor strength present throughout Sensory Exam: No Sensory deficit (Neuro) Extrem General: No pedal edema Psych Speech and movement: Normal speech and movement present Affect: normal affect Attitude: cooperative Thought process: Normal thought process present Thought content: Normal thought content present Insight: Good insight present (Psych) Judgement: Good judgement present (Psych) Results Reviewed Results Reviewed: XR CERVICAL SPINE CLINICAL INFORMATION: M54.2 - Cervicalgia COMPARISON: None available. TECHNIQUE: 3 views of the cervical spine were obtained. FINDINGS: There is mild reversal of the normal cervical lordosis. No fractures are identified. There is no prevertebral soft tissue swelling. C3-4: There is subtle anterolisthesis. C4-5: There is subtle anterolisthesis. There is mild facet osteophyte formation. Uncovertebral osteophytes are present on the right. C5-6: There is moderate disc space narrowing and endplate osteophytes with subtle retrolisthesis. C6-7: There is moderate disc space narrowing with endplate osteophytes and facet sclerosis with osteophytes. C7-T1: There is subtle anterolisthesis. IMPRESSION: There is mild reversal of cervical lordosis. This can be related to degenerative changes, positioning, muscle spasm, or posterior soft tissue injury. Degenerative changes. Assessment & Plan Assessment & Plan (1) Intractable back pain: Code(s): M54.9 - Dorsalgia, unspecified Category: Medical (2) Spondylosis without myelopathy or radiculopathy, cervical region: Code(s): M47.812 - Spondylosis without myelopathy or radiculopathy, cervical region Category: Medical Plan This patient is suffering from severe spondylosis however she never went for physical therapy. She never had any chiropractic manipulations she did not try any 10s unit massage therapy or occupational therapy. Her pain is still subacute since it was only 4 months since onset of the condition. I will send her to physical therapy. She would need to continue physical therapy for 6 weeks and schedule appointment with me after this interval. If the see physical therapy will not be helpful for her pain we will proceed with [facility] for intractable cervicalgia and spondylosis of the cervical spine. Orders: Orders PT Evaluation and Treatment Today M47.812 - Spondylosis without myelopathy or radiculopathy, cervical region, M54.9 - Dorsalgia, unspecified Patient Instructions: security clerk from [employer] helped us to maintain this conversation in Kazakh. I here by testify that I spent 45 minutes in conversation with this patient as well as planning her care and organizing this note. Coding Level of Care Code New Pt Level 4 (82400) Diagnoses Intractable back pain M54.9 Spondylosis without myelopathy or radiculopathy, cervical region M47.812
[2024-09-28 14:46] VITALS: BP 119/77; PULSE 67; RESP 18; O2SAT 100
== END 2024-09-28 15:08 | disposition home or self-care (01) ==
LOC: HO.PMC 14:32
PROVIDERS: PCP Internal Medicine; Referring Provider Student in an Organized Health Care Education/Training Program; Visit Provider Anesthesiology
DX: M54.9 Dorsalgia, unspecified (principal); M47.812 Spondylosis without myelopathy or radiculopathy, cervical region
CPT/HCPCS: 99204

== ENCOUNTER → 2024-09-28 14:31 | Outpatient (BNVA) | payer OTHER, SELFPAY | PROVIDERS: PCP Internal Medicine; Referring Provider Student in an Organized Health Care Education/Training Program; Visit Provider Anesthesiology | DX: M47.812 Spondylosis without myelopathy or radiculopathy, cervical region (principal); M54.9 Dorsalgia, unspecified | CPT/HCPCS: 99202 ==

== ENCOUNTER 2024-09-29 14:34 | Outpatient (AMB) | payer OTHER, SELFPAY ==
[2024-09-29 14:35] VITALS: BP 141/90; PULSE 67; BMI 23.8
--- NOTE | 2024-09-29 14:35 | MHC.OFFVIS ---
Vital Signs 09/29/24 14:35 Height 5 ft 7 in Weight 151 lb 10.848 oz BMI 23.8 BP 141/90 H Blood Pressure Location Rt brachial Position Sitting Pulse 67 Intake Visit Reasons: Abnormal findings on diagnostic imaging of other Intake Note: New patient in office referred to GI due to abnormal findings on diagnostic imaging. CC: Patient c/o epigastric pain, nausea, and acid reflux for about a year. She was [place] [facility] [place] because she was vomiting and felt sick and very weak. She was found to have a hiatal hernia at [facility]. [employer] Skilled [employer] Supervisor Required: No Accompanied by: Self / Same As Patient Allergies No Known Allergies (No Known Allergies*) Allergy (Verified 09/29/24 14:54) HPI HPI Abnormal findings on diagnostic imaging of other: Details: Assessment & Plan (1) Right upper quadrant abdominal pain: Code(s): R10.11 - Right upper quadrant pain Category: Medical Plan - ORION CookC: DEISY #[id number], Angelic. She tells me that, although her pain has improved, she has not changed since the last visit. After a medications review, she never received the imipramine - she had to change pharmacies from [facility] to [facility]. I will resend this. She continues on her carafate and omeprazole and her dicyclomine. SHE IS AGREEABLE TO A 4 WEEK FOLLOW-UP AND SAYS SHE WILL CALL ME IF SHE DOES NOT RECEIVE THE MEDICATIONS. 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 LABS: Laboratory Tests 09/13/24 07:20 WBC 7.9 Hgb 13.6 Hct 42.0 Plt Count 270 Estimated GFR > 60 Total Bilirubin 0.4 AST 20 ALT 18 Alkaline Phosphatase 122 H TSH 2.08 UPPER GI STUDY 02/03/24 FINDINGS: Dual and single contrast images of the esophagus demonstrate a normal caliber and contour. There is a line granular appearance of the esophageal mucosa, suggestive of esophagitis. Also felinization of the mid esophageal mucosa. No strictures, masses or ulcerations are seen. Esophageal peristalsis was normal. A small to moderate-sized type I hiatal hernia is present. Significant gastroesophageal reflux seen up to the thoracic inlet. Dual contrast and single contrast images of the stomach demonstrated a normal contour. The gastric mucosal folds have a thickened appearance, suggestive of gastritis. No masses or ulcerations are seen. Contrast freely passed into the gastric antrum and duodenal bulb without delay. Single and air-contrast images of the duodenal bulb demonstrate no abnormality. The duodenal sweep has a normal appearance, course, and mucosal fold appearance. FLUOROSCOPY TIME: 6.0 minutes Number of Spot Images: 12 Number of Cine: 14 DOSE AREA PRODUCT: 3368 uGy-m2 (microgray-meter squared) FL/FL upper GI w air IMPRESSION: 1. Fine granular appearance of the esophageal mucosa, possibly representing underlying esophagitis. 2. Felinization of the mid esophageal mucosa. This is a benign finding associated with chronic gastric esophageal reflux. 3. Small to moderate-sized type I hiatal hernia with significant gastroesophageal reflux. 4. Thickened appearance of the gastric rugal folds, suggestive of gastritis. CT ABD AND PELVIS [facility] [place]/14/2024? FINDINGS: Fruit [employer] Vegetable Classer View Findings, Lines and Tubes: None. Visualized Chest: Lung bases are clear of consolidation or pleural effusion. Partially seen coronary calcifications. Diaphragm: There is a small hiatal hernia Liver: Hepatic steatosis. Subcentimeter low-attenuation lesion in the right hepatic lobe series 201 image 37, unchanged and too small to characterize. Gallbladder: No acute abnormality. No calcified stones, nondistended Bile ducts: No biliary ductal dilation. Spleen: Nonenlarged spleen. Pancreas: No peripancreatic stranding or fluid. No ductal dilatation Adrenal Glands: No mass or thickening Kidneys and Ureters: No hydroureteronephrosis. No solid renal mass Bladder: Incompletely distended, unremarkable Stomach, Small bowel and Large Bowel: No bowel obstruction or evidence of acute inflammation. A few distal colonic diverticula. No evidence for diverticulitis. Appendix: Not seen. No regional findings to indicate inflammation Peritoneum, omentum and mesentery: No ascites or pneumoperitoneum. No omental or mesenteric lesions. Lymph nodes: No enlarged lymph nodes. Blood Vessels: Mild atherosclerosis. No aneurysmal dilatation of the abdominal aorta. No evidence of venous thrombosis. Abdominal and pelvic wall: Unremarkable. Reproductive organs: Probable uterine fibroid posteriorly at series 201 image 118. No acute abnormality Bones: No acute abnormality. Moderate to severe disc degenerative changes at L5-S1. IMPRESSION: No acute abnormality on CT of the abdomen and pelvis. Small hiatal hernia. Partially seen coronary calcifications. TODAY'S VISIT Icelandic #Arron Ramires She says she has been having pain in the epigastrun that radiates up her chest with HB. She has presented to the ER a couple of times with this. This most recent set of sx started in September of this year. She also has nausea and dizziness and weakness. She was seen at [facility] ER. They told her it was gastritis and to see the GI doctor. She had normal labs there. She also had a CT at [facility] after she started vomiting. The ER doctor told her it was a hernia. Famotidine was rx'ed. She says omeprazole and pantoprazole did not work. The famotidine is working better for her now. She was very concerned because she had lost 10 lbs. However, she has not been avoiding gluten and she has known Celiac disease. She also takes ibuprofen tid and she notes that this upsets her stomach so she is taking tylenol instead. She can not ID any preceding illness, medication changes preceding her sudden exacerbation of the illness. She DOES like to eat a lot of fatty foods admittedly, and she does not have gallstones but we may need to get a HIDA scan to be thorough. ROV 8 weeks. [facility] Medical History (Reviewed 09/29/24 @ 15:00 by Celio Worthington [facility] Allergic rhinitis Nocturnal hypoxemia Blurry vision Polyarthritis Mild recurrent major depression Urge urinary incontinence Dry mouth Neck pain Numbness Chronic sinusitis Insomnia Herpes zoster delivery delivered Surgical History Hx of colonoscopy History of esophagogastroduodenoscopy (EGD) History of appendectomy Family History Father HTN (hypertension) Mother HTN (hypertension) Sister HTN (hypertension) Brother No problems noted. Son No problems noted. Daughter No problems noted. Paternal Grandfather Colon cancer Social History Household Members: Children Household Members Other:: grandchildren Housing: House Alcohol intake: never Patient Tobacco Use Status: Current someday Tobacco user Tobacco use type: Cigarette Cigarette Packs Per Day: 0.25 Cigarettes Per Day: 3 e-Cigarette/Vaping Use: Never Used Second Hand Smoke Exposure: Yes Substance Use Type: Marijuana service: No Current occupational status: unemployed Cognitive needs: No Hearing needs: No Vision needs: Yes (glasses) Review of Systems Const Denies fatigue, Denies fever(s), Reports lethargy, Denies night sweats, Reports poor appetite, Reports weakness and Reports weight loss Eyes Details: Glasses Reports requires corrective lenses ENT Reports Normal hearing present, Denies dental pain, Denies dysphagia, Reports dizziness, Denies hearing loss, Denies mouth pain, Denies odynophagia, Denies throat swelling, Denies tongue swelling and Reports other (Dentition adequate) Card Reports chest pain at rest Resp Reports no additional complaints GI Details: Denies abdominal pain, Denies melena, Denies bloating, Denies hematochezia, Denies constipation, Denies GI cramping, Denies dysphagia, Denies excessive flatus, Denies early satiety, Reports heartburn, Denies diarrhea, Reports nausea, Denies odynophagia, Reports vomiting and Denies hematemesis Skin/Breast Denies pruritus, Denies lesions, Denies rash and Denies jaundice Neuro Reports Normal hearing present, Denies Abnormal speech present, Reports dizziness and Reports weakness Endo Denies fatigue Aller/Immun Denies throat swelling and Denies tongue swelling Physical Exam Vital Signs: Last Vital Signs Pulse 67 09/29/24 14:35 BP 141/90 H 09/29/24 14:35 BMI result Body Mass Index 23.8 Const General: cooperative, no acute distress, well developed and well groomed Nutritional Appearance: average body habitus and well nourished Orientation/consciousness: oriented to person, oriented to place and oriented to time Limitations: language barrier HEENT Head: Yes normocephalic and Yes atraumatic Eyes General: appearance normal, both eyes and all related structures Pupils: Equal, round and reactive pupils present Neck Neck: Yes normal visual inspection and Yes no lymphadenopathy Thyroid: Thyroid normal Resp Effort & Inspection: normal respiratory effort and able to speak in complete sentences Auscultation: clear to auscultation bilaterally Cardio Rate: regular rate Rhythm: regular rhythm Heart sounds: Normal, physiologic split S2 sound present Peripheral pulses: radial pulses present and posterior tibial pulses present GI Inspection: No distended and No Abdominal panniculus present Palpation (GI): Soft to palpation, nontender, no guarding, not rigid and No hepatosplenomegaly present Percussion: Yes normal to percussion Auscultation: normal bowel sounds Rectal Exam - Female: deferred Skin General skin exam: no rashes or lesions noted, turgor normal, skin not dry, no jaundice, No spider nevi and no striae Rashes: no rashes Nails: normal Neuro General: oriented to person, oriented to place and oriented to time Cranial nerves: Yes Equal, round and reactive pupils present and Yes Normal hearing present Speech: No Abnormal speech present Extrem General: Yes normal to inspection, No clubbing, No cyanosis and No edema Psych Appearance: grossly normal and well kempt Mental Status: mental status grossly normal Speech and movement: Normal speech and movement present Affect: normal affect Attitude: cooperative Thought process: Normal thought process present and not confabulating Thought content: Normal thought content present Insight: Good insight present (Psych) Judgement: Good judgement present (Psych) Assessment & Plan Assessment & Plan (1) GERD (gastroesophageal reflux disease): Code(s): K21.9 - Gastro-esophageal reflux disease without esophagitis Category: Medical (2) Epigastric pain: Code(s): R10.13 - Epigastric pain Category: Medical (3) Right upper quadrant abdominal pain: Code(s): R10.11 - Right upper quadrant pain Category: Medical (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 She has presented to the ER a couple of times with this. This most recent set of sx started in September of this year. She also has nausea and dizziness and weakness. She was seen at [facility] ER. They told her it was gastritis and to see the GI doctor. She had normal labs there. She also had a CT at [facility] after she started vomiting. The ER doctor told her it was a hernia. Famotidine was rx'ed. She says omeprazole and pantoprazole did not work. The famotidine is working better for her now. She was very concerned because she had lost 10 lbs. However, she has not been avoiding gluten and she has known Celiac disease. She also takes ibuprofen tid and she notes that this upsets her stomach so she is taking tylenol instead. She can not ID any preceding illness, medication changes preceding her sudden exacerbation of the illness. She DOES like to eat a lot of fatty foods admittedly, and she does not have gallstones but we may need to get a HIDA scan to be thorough. ROV 8 weeks. Orders: Orders Alkaline Phosphatase Bone Today R74.8 - Abnormal levels of other serum enzymes THOMPSON Reflex Titer and Pattern Today R74.8 - Abnormal levels of other serum enzymes NM hepatobiliary w pharm Today R10.11 - Right upper quadrant pain, R10.13 - Epigastric pain EGD - GI Use Only Today R10.13 - Epigastric pain Mitochondrial Antibody Today R74.8 - Abnormal levels of other serum enzymes Medications: New famotidine (Pepcid) 20 mg PO BID 60 tabs 6RF K21.9 - Gastro-esophageal reflux disease without esophagitis, K22.89 - Other specified disease of esophagus Coding Level of Care Code New Pt Level 3 (93595) Diagnoses GERD (gastroesophageal reflux disease) K21.9 Epigastric pain R10.13 Right upper quadrant abdominal pain R10.11 Feline esophagus K22.89 Elevated alkaline phosphatase level R74.8
== END 2024-09-29 15:36 | disposition home or self-care (01) ==
LOC: HO.HGI 14:35
PROVIDERS: PCP Internal Medicine; Visit Provider Nurse Practitioner
DX: K21.9 Gastro-esophageal reflux disease without esophagitis (principal); R10.13 Epigastric pain; R10.11 Right upper quadrant pain; K22.89 Other specified disease of esophagus; R74.8 Abnormal levels of other serum enzymes
CPT/HCPCS: 99203

== ENCOUNTER → 2024-09-29 14:34 | Outpatient (BNVA) | payer OTHER, SELFPAY | PROVIDERS: PCP Internal Medicine; Visit Provider Nurse Practitioner | DX: R10.11 Right upper quadrant pain (principal); R10.13 Epigastric pain; K21.9 Gastro-esophageal reflux disease without esophagitis; K22.89 Other specified disease of esophagus; R74.8 Abnormal levels of other serum enzymes | CPT/HCPCS: 99202 ==

== ENCOUNTER → 2024-10-24 07:55 | Outpatient (REF) | payer OTHER, SELFPAY | LOC: HO.NUCMED 07:55 | PROVIDERS: PCP Internal Medicine; Visit Provider Nurse Practitioner | DX: Z13.89 Encounter for screening for other disorder (principal) ==

== ENCOUNTER → 2024-10-31 07:50 | Outpatient (REF) | payer OTHER, SELFPAY ==
--- NOTE | ~2024-10-31 | NM_ITS ---
EXAMINATION: NM BILIARY TRACT CLINICAL INFORMATION: R10.11 - Right upper quadrant pain, epigastric pain, nausea, vomiting, GERD COMPARISON: None Radioparhmaceutical: 5.0mCi technetium 99m labeled mebrofenin Other medications: 1.3mcg CCK infused IV over 30 minutes , one hour post injection of mebrofenin (a.k.a. Choletec) TECHNIQUE: Hepatobiliary scintigraphy was performed after the intravenous administration of technetium 99m labeled Choletec. Imaging was performed every 2 minutes for 54minutes after which, CCK was infused IV over 30 minutes with imaging continuing for an additional 23minutes. Ejection fraction curve was generated with a region of interest placed over the gallbladder. FINDINGS: After Choletech injection, there is prompt uptake of radiotracer by the liver. Intrahepatic biliary filling was visible within 10 minutes and gallbladder filling was visible within 14minutes. Small bowel filling was noted within 12minutes. After CCK infusion, ejection fraction measured 93%. NM/NM hepatobiliary w pharm IMPRESSION: Gallbladder filling and ejection fraction was within normal limits. Electronically signed by: Asael Pollock MD 10/31/2024 10:20 AM EDT
== END ==
LOC: HO.NUCMED 07:50
PROVIDERS: PCP Internal Medicine; Visit Provider Nurse Practitioner
DX: R10.11 Right upper quadrant pain (principal); R10.13 Epigastric pain; R11.2 Nausea with vomiting, unspecified; K21.9 Gastro-esophageal reflux disease without esophagitis
CPT/HCPCS: 78227; A9537; J2805

== ENCOUNTER → 2024-10-31 07:53 | Outpatient (BNV) | payer OTHER, SELFPAY | PROVIDERS: PCP Internal Medicine; Visit Provider Radiology Diagnostic Radiology | DX: R10.11 Right upper quadrant pain (principal) | CPT/HCPCS: 78227 ==

== ENCOUNTER 2024-11-28 16:41 | Outpatient (REF) | payer OTHER, SELFPAY ==
[2024-11-29 15:37] LABS: Anti Nuclear Antibody Screen NEGATIVE (NEGATIVE)
== END 2024-11-28 16:42 | disposition home or self-care (01) ==
LOC: HO.LAB 16:41
PROVIDERS: PCP Internal Medicine; Visit Provider Nurse Practitioner
DX: R74.8 Abnormal levels of other serum enzymes (principal)
CPT/HCPCS: 36415; 84075; 86038; 86381

== ENCOUNTER 2024-11-30 10:51 | Outpatient (AMB) | payer OTHER, SELFPAY ==
[2024-11-30 10:55] VITALS: BP 130/81; PULSE 74; BMI 24.0
--- NOTE | 2024-11-30 10:55 | MHC.OFFVIS ---
Vital Signs 11/30/24 10:55 Height 5 ft 7 in Weight 153 lb 7.068 oz BMI 24.0 BP 130/81 Blood Pressure Location Rt brachial Position Sitting Pulse 74 Intake Visit Reasons: 8 wks f/u Intake Note: Lorena presents in office today in follow up of HIDA scan and labs. CC: Patient c/o epigastric pain, nausea, and acid reflux for about a year. She also reports an episode of abdominal pain and diarrhea with black stool. 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 She has presented to the ER a couple of times with this. This most recent set of sx started in September of this year. She also has nausea and dizziness and weakness. She was seen at [facility] ER. They told her it was gastritis and to see the GI doctor. She had normal labs there. She also had a CT at [facility] after she started vomiting. The ER doctor told her it was a hernia. Famotidine was rx'ed. She says omeprazole and pantoprazole did not work. The famotidine is working better for her now. She was very concerned because she had lost 10 lbs. However, she has not been avoiding gluten and she has known Celiac disease. She also takes ibuprofen tid and she notes that this upsets her stomach so she is taking tylenol instead. She can not ID any preceding illness, medication changes preceding her sudden exacerbation of the illness. She DOES like to eat a lot of fatty foods admittedly, and she does not have gallstones but we may need to get a HIDA scan to be thorough. ROV 8 weeks. Orders: Orders Alkaline Phosphatase Bone Today R74.8 - Abnormal levels of other serum enzymes THOMPSON Reflex Titer and Pattern Today R74.8 - Abnormal levels of other serum enzymes NM hepatobiliary w pharm Today R10.11 - Right upper quadrant pain, R10.13 - Epigastric pain EGD - GI Use Only Today R10.13 - Epigastric pain Mitochondrial Antibody Today R74.8 - Abnormal levels of other serum enzymes Medications: New famotidine (Pepcid) 20 mg PO BID 60 tabs 6RF K21.9 - Gastro-esophageal reflux disease without esophagitis, K22.89 - Other specified disease of esophagus LABS Laboratory Tests 09/13/24 11/28/24 07:20 16:49 WBC 7.9 Hgb 13.6 Hct 42.0 Plt Count 270 Estimated GFR > 60 Total Bilirubin 0.4 AST 20 ALT 18 Alkaline Phosphatase 122 H Alk Phos Bone Specific Pending Mitochondrial AB Titer Pending TSH 2.08 THOMPSON Screen NEGATIVE HIDA SCAN 10/31/2024 FINDINGS: After Choletech injection, there is prompt uptake of radiotracer by the liver. Intrahepatic biliary filling was visible within 10 minutes and gallbladder filling was visible within 14minutes. Small bowel filling was noted within 12minutes. After CCK infusion, ejection fraction measured 93%. NM/NM hepatobiliary w pharm IMPRESSION: Gallbladder filling and ejection fraction was within normal limits. EGD BIOPSY Mitochondrial Antibody Alkaline Phosphatase Bone TODAYS VISIT Samoan #V live [facility] Medical History (Updated 11/30/24 @ 11:28 by SIVAKUMAR Cook) Acquired syphilis Strep pharyngitis Upper respiratory tract infection Impacted cerumen of right ear Chronic sinusitis Physical exam Encounter for well woman exam with routine gynecological exam Right upper quadrant abdominal pain Diarrhea Abnormal UGI series Allergic rhinitis Nocturnal hypoxemia Blurry vision Polyarthritis Mild recurrent major depression Urge urinary incontinence Dry mouth Neck pain Numbness Chronic sinusitis Insomnia Herpes zoster delivery delivered Surgical History Hx of colonoscopy History of esophagogastroduodenoscopy (EGD) History of appendectomy Family History Father HTN (hypertension) Mother HTN (hypertension) Sister HTN (hypertension) Brother No problems noted. Son No problems noted. Daughter No problems noted. Paternal Grandfather Colon cancer Social History Household Members: Children Household Members Other:: grandchildren Housing: House Alcohol intake: never Patient Tobacco Use Status: Current someday Tobacco user Tobacco use type: Cigarette Cigarette Packs Per Day: 0.25 Cigarettes Per Day: 3 e-Cigarette/Vaping Use: Never Used Second Hand Smoke Exposure: Yes Substance Use Type: Marijuana service: No Current occupational status: unemployed Cognitive needs: No Hearing needs: No Vision needs: Yes (glasses) Review of Systems Const Denies fatigue, Denies fever(s), Denies night sweats, Reports poor appetite and Denies weight loss ENT Reports Normal hearing present, Denies dental pain, Denies dysphagia, Denies hearing loss, Denies mouth pain, Denies odynophagia, Denies throat swelling, Denies tongue swelling and Reports other (Dentition adequate) Card Reports chest pain Resp Reports no additional complaints GI Details: Reports abdominal pain, Denies melena, Denies bloating, Denies hematochezia, Reports constipation, Reports GI cramping, Denies dysphagia, Denies excessive flatus, Denies early satiety, Reports heartburn, Denies diarrhea, Reports loose stools, Denies nausea, Denies odynophagia, Denies vomiting and Denies hematemesis Musc Reports back pain, Reports myalgias and Reports arthralgias Skin/Breast Denies pruritus, Denies lesions, Denies rash and Denies jaundice Neuro Reports Normal hearing present and Denies Abnormal speech present Psych Reports anxiety, Reports irritability and Reports mood swings Endo Denies fatigue Aller/Immun Denies throat swelling and Denies tongue swelling Physical Exam Vital Signs: Last Vital Signs Pulse 74 11/30/24 10:55 BP 130/81 11/30/24 10:55 BMI result Body Mass Index 24.0 Const General: cooperative, no acute distress, well developed and well groomed Nutritional Appearance: average body habitus and well nourished Orientation/consciousness: oriented to person, oriented to place and oriented to time Limitations: language barrier HEENT Head: Yes normocephalic and Yes atraumatic Eyes General: appearance normal, both eyes and all related structures Pupils: Equal, round and reactive pupils present Neck Neck: Yes normal visual inspection and Yes no lymphadenopathy Thyroid: Thyroid normal Resp Effort & Inspection: normal respiratory effort and able to speak in complete sentences Auscultation: clear to auscultation bilaterally Cardio Rate: regular rate Rhythm: regular rhythm Heart sounds: Normal, physiologic split S2 sound present Peripheral pulses: radial pulses present and posterior tibial pulses present GI Inspection: No distended and No Abdominal panniculus present Palpation (GI): Soft to palpation, Tenderness to palpation present (GI) (Generally over the entire abdomen), no guarding, not rigid and No hepatosplenomegaly present Percussion: Yes normal to percussion Auscultation: normal bowel sounds Rectal Exam - Female: deferred Skin General skin exam: no rashes or lesions noted, turgor normal, skin not dry, no jaundice, No spider nevi and no striae Rashes: no rashes Nails: normal Neuro General: oriented to person, oriented to place, oriented to time and gait normal Cranial nerves: Yes Equal, round and reactive pupils present and Yes Normal hearing present Speech: No Abnormal speech present Extrem General: Yes normal to inspection, No clubbing, No cyanosis and No edema Psych Appearance: grossly normal and well kempt Mental Status: mental status grossly normal Speech and movement: Psychomotor agitation in speech present Affect: Labile affect present, Sad affect present, Anxious affect present and Irritable affect present Attitude: cooperative Thought process: not confabulating, Perseverating thought process present and Tangential thought process present Thought content: Normal thought content present Insight: Limited insight present (Psych) and Poor insight present (Psych) Judgement: Limited judgement present (Psych) and Poor judgement present (Psych) Assessment & Plan Assessment & Plan (1) GERD (gastroesophageal reflux disease): Code(s): K21.9 - Gastro-esophageal reflux disease without esophagitis Category: Medical (2) Celiac disease: Code(s): K90.0 - Celiac disease Category: Medical (3) Epigastric pain: Code(s): R10.13 - Epigastric pain Category: Medical (4) Elevated alkaline phosphatase level: Code(s): R74.8 - Abnormal levels of other serum enzymes Category: Medical (5) 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 - Chronic mild pain noted in the epigastric area, persistent over a year, worsens occasionally without clear triggers, potentially associated with GERD. In the past she felt that this was improved with famotidine 40 mg once a day but now she is uncertain if it is giving her consistent relief. - She has lower abdominal and back pain associated with bowel pressure; occasionally, this area flares with pressure leading to significant discomfort. - Episodes of severe abdominal pain associated with black stools and diarrhea have occurred three times in the past year more suggestive of rapid bowel transit then bleeding. - She experiences episodic constipation, linked potentially to dietary habits, overlapping with her history of hemorrhoids causing significant discomfort during flare-ups. - Prior tests include a normal HIDA scan; preparation for an upcoming endoscopy is in place to evaluate the pain and other symptoms further. - Previous medications include Imipramine, which was not well-tolerated, and dicyclomine, used for bowel relaxation. Overall she has been difficult to treat because she is not good at isolating or pinpointing potential triggers for her symptoms. There also seems to be an ever changing palliative symptoms presented from visit to visit. Either lack of understanding or frustration seems to lead her to frequently not take medication treatments consistently so it is difficult to evaluate a good treatment plan. So far she has had a largely negative workup. She has had a negative HIDA scan (performed because of an elevated alk-phos) a negative upper GI with small-bowel follow-through study. She has also had benign labs, including thyroid studies. Because she has fatty liver we have added an autoimmune liver workup but she has not yet gone for the blood work. I have also ordered an upper endoscopy to explore the epigastric element of her pain. Overall she is mostly focused on asking for pain medication. That is why I am trying to get her to consistently take agents like dicyclomine OR the imipramine. My will emphasized that she should take it only at bedtime because of the severe somnolence via the anticholinergic pathway that it produces a not twice a day as her primary care provider had prescribed it. She also has a potential overlapping element of extensive musculoskeletal and myofascial complaints. This makes it more difficult to isolate her symptoms. For now I think we are going to try reinstating the imipramine and the dicyclomine. She complained the all these things constipate her in dry her out which is valid but I think will try adding Linzess to see if there is an element of bowel spasm related to constipation. This will also offset any adverse reactions of the to IBS medications. EGD BIOPSY Mitochondrial Antibody Alkaline Phosphatase Bone Medications: New famotidine (Pepcid) 40 mg PO BID 60 tabs 6RF K21.9 - Gastro-esophageal reflux disease without esophagitis, K22.89 - Other specified disease of esophagus, R10.13 - Epigastric pain dicyclomine 20 mg PO QID 120 tabs 3RF 30 days K59.4 - Anal spasm linaclotide (Linzess) 72 mcg PO QAM 30 caps 6RF K59.04 - Chronic idiopathic constipation Discontinued dicyclomine Discontinued Reason: Doctor's Order 10 mg PO QID 30 days 120 caps 6RF famotidine (Pepcid) Discontinued Reason: Doctor's Order 20 mg PO BID 60 tabs 6RF K21.9 - Gastro-esophageal reflux disease without esophagitis, K22.89 - Other specified disease of esophagus Coding Level of Care Code Est Pt Level 4 (12788) Diagnoses GERD (gastroesophageal reflux disease) K21.9 Celiac disease K90.0 Epigastric pain R10.13 Elevated alkaline phosphatase level R74.8 Feline esophagus K22.89 Rectal spasm K59.4 Hemorrhoids K64.9 Time Spent (min) 37
== END 2024-11-30 17:07 | disposition home or self-care (01) ==
LOC: HO.HGI 10:52
PROVIDERS: PCP Internal Medicine; Visit Provider Nurse Practitioner
DX: K21.9 Gastro-esophageal reflux disease without esophagitis (principal); K90.0 Celiac disease; R10.13 Epigastric pain; R74.8 Abnormal levels of other serum enzymes; K22.89 Other specified disease of esophagus; K59.4 Anal spasm; K64.9 Unspecified hemorrhoids
CPT/HCPCS: 99214

== ENCOUNTER → 2024-11-30 10:51 | Outpatient (BNVA) | payer OTHER, SELFPAY | PROVIDERS: PCP Internal Medicine; Visit Provider Nurse Practitioner | DX: K21.9 Gastro-esophageal reflux disease without esophagitis (principal); K90.0 Celiac disease; R10.13 Epigastric pain; R74.8 Abnormal levels of other serum enzymes; K22.89 Other specified disease of esophagus; K64.9 Unspecified hemorrhoids | CPT/HCPCS: 99212 ==

== ENCOUNTER 2025-01-03 11:07 | Outpatient (AMB) | payer OTHER, SELFPAY ==
--- NOTE | 2025-01-03 11:10 | MHC.OFFVIS ---
Vital Signs 01/03/25 11:26 Height 5 ft 7 in BP 137/95 H Blood Pressure Location Lt brachial Position Sitting Pulse 105 H Intake Visit Reasons: Follow up Intake Note: Lorena returns to in office follow up of GERD. CC: Patient reports that she is doing better from anal spasm and acid reflux. She reports an episode that lasted days of epigastric pain, nausea and acid reflux. Literacy Education Professor Required: Yes Literacy Education Professor Language: Malagasy Accompanied by: Self / Same As Patient Allergies No Known Allergies (No Known Allergies*) Allergy (Verified 01/03/25 11:30) HPI HPI Follow up: Details: Assessment & Plan (1) GERD (gastroesophageal reflux disease): Code(s): K21.9 - Gastro-esophageal reflux disease without esophagitis Category: Medical (2) Celiac disease: Code(s): K90.0 - Celiac disease Category: Medical (3) Epigastric pain: Code(s): R10.13 - Epigastric pain Category: Medical (4) Elevated alkaline phosphatase level: Code(s): R74.8 - Abnormal levels of other serum enzymes Category: Medical (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 - Chronic mild pain noted in the epigastric area, persistent over a year, worsens occasionally without clear triggers, potentially associated with GERD. In the past she felt that this was improved with famotidine 40 mg once a day but now she is uncertain if it is giving her consistent relief. - She has lower abdominal and back pain associated with bowel pressure; occasionally, this area flares with pressure leading to significant discomfort. - Episodes of severe abdominal pain associated with black stools and diarrhea have occurred three times in the past year more suggestive of rapid bowel transit then bleeding. - She experiences episodic constipation, linked potentially to dietary habits, overlapping with her history of hemorrhoids causing significant discomfort during flare-ups. - Prior tests include a normal HIDA scan; preparation for an upcoming endoscopy is in place to evaluate the pain and other symptoms further. - Previous medications include Imipramine, which was not well-tolerated, and dicyclomine, used for bowel relaxation. Overall she has been difficult to treat because she is not good at isolating or pinpointing potential triggers for her symptoms. There also seems to be an ever changing palliative symptoms presented from visit to visit. Either lack of understanding or frustration seems to lead her to frequently not take medication treatments consistently so it is difficult to evaluate a good treatment plan. So far she has had a largely negative workup. She has had a negative HIDA scan (performed because of an elevated alk-phos) a negative upper GI with small-bowel follow-through study. She has also had benign labs, including thyroid studies. Because she has fatty liver we have added an autoimmune liver workup but she has not yet gone for the blood work. I have also ordered an upper endoscopy to explore the epigastric element of her pain. Overall she is mostly focused on asking for pain medication. That is why I am trying to get her to consistently take agents like dicyclomine OR the imipramine. My will emphasized that she should take it only at bedtime because of the severe somnolence via the anticholinergic pathway that it produces a not twice a day as her primary care provider had prescribed it. She also has a potential overlapping element of extensive musculoskeletal and myofascial complaints. This makes it more difficult to isolate her symptoms. For now I think we are going to try reinstating the imipramine and the dicyclomine. She complained the all these things constipate her in dry her out which is valid but I think will try adding Linzess to see if there is an element of bowel spasm related to constipation. This will also offset any adverse reactions of the to IBS medications. EGD BIOPSY Mitochondrial Antibody Alkaline Phosphatase Bone Medications: New famotidine (Pepcid) 40 mg PO BID 60 tabs 6RF K21.9 - Gastro-esophageal reflux disease without esophagitis, K22.89 - Other specified disease of esophagus, R10.13 - Epigastric pain dicyclomine 20 mg PO QID 120 tabs 3RF 30 days K59.4 - Anal spasm linaclotide (Linzess) 72 mcg PO QAM 30 caps 6RF K59.04 - Chronic idiopathic constipation Discontinued dicyclomine Discontinued Reason: Doctor's Order 10 mg PO QID 30 days 120 caps 6RF famotidine (Pepcid) Discontinued Reason: Doctor's Order 20 mg PO BID 60 tabs 6RF K21.9 - Gastro-esophageal reflux disease without esophagitis, K22.89 - Other specified disease of esophagus Laboratory Tests 11/28/24 16:49 Alk Phos Bone Specific 17.9 Anti-Mitochondrial Ab NEGATIVE EGD BIOPSY [facility] VISIT [facility] Medical History Acquired syphilis Strep pharyngitis Upper respiratory tract infection Impacted cerumen of right ear Chronic sinusitis Physical exam Encounter for well woman exam with routine gynecological exam Right upper quadrant abdominal pain Diarrhea Abnormal UGI series Allergic rhinitis Nocturnal hypoxemia Blurry vision Polyarthritis Mild recurrent major depression Urge urinary incontinence Dry mouth Neck pain Numbness Chronic sinusitis Insomnia Herpes zoster delivery delivered Surgical History Hx of colonoscopy History of esophagogastroduodenoscopy (EGD) History of appendectomy Family History Father HTN (hypertension) Mother HTN (hypertension) Sister HTN (hypertension) Brother No problems noted. Son No problems noted. Daughter No problems noted. Paternal Grandfather Colon cancer Social History Household Members: Children Household Members Other:: grandchildren Housing: House Alcohol intake: never Patient Tobacco Use Status: Current someday Tobacco user Tobacco use type: Cigarette Cigarette Packs Per Day: 0.25 Cigarettes Per Day: 3 e-Cigarette/Vaping Use: Never Used Second Hand Smoke Exposure: Yes Substance Use Type: Marijuana service: No Current occupational status: unemployed Cognitive needs: No Hearing needs: No Vision needs: Yes (glasses) Review of Systems Const Denies fatigue, Denies fever(s), Denies night sweats, Denies poor appetite and Denies weight loss Eyes Details: glasses Reports requires corrective lenses ENT Reports Normal hearing present, Denies dental pain, Denies dysphagia, Denies hearing loss, Denies mouth pain, Denies odynophagia, Denies throat swelling, Denies tongue swelling and Reports other (Dentition adequate) Card Reports no additional complaints Resp Reports no additional complaints GI Details: Reports abdominal pain, Denies melena, Denies bloating, Denies hematochezia, Reports constipation, Denies GI cramping, Denies dysphagia, Denies excessive flatus, Denies early satiety, Reports heartburn, Denies diarrhea, Reports nausea, Denies odynophagia, Denies vomiting and Denies hematemesis Musc Reports myalgias, Reports arthralgias and Reports stiffness Skin/Breast Denies pruritus, Denies lesions, Denies rash and Denies jaundice Neuro Reports Normal hearing present and Denies Abnormal speech present Endo Denies fatigue Aller/Immun Denies throat swelling and Denies tongue swelling Physical Exam Vital Signs: Last Vital Signs Pulse 105 H 01/03/25 11:26 BP 137/95 H 01/03/25 11:26 Const General: cooperative, no acute distress, well developed and well groomed Nutritional Appearance: average body habitus and well nourished Orientation/consciousness: oriented to person, oriented to place and oriented to time Limitations: language barrier HEENT Head: Yes normocephalic and Yes atraumatic Eyes General: appearance normal, both eyes and all related structures Pupils: Equal, round and reactive pupils present Neck Neck: Yes normal visual inspection and Yes no lymphadenopathy Thyroid: Thyroid normal Resp Effort & Inspection: normal respiratory effort and able to speak in complete sentences Auscultation: clear to auscultation bilaterally Cardio Rate: regular rate Rhythm: regular rhythm Heart sounds: Normal, physiologic split S2 sound present Peripheral pulses: radial pulses present and posterior tibial pulses present GI Inspection: No distended and No Abdominal panniculus present Palpation (GI): Soft to palpation, nontender, no guarding, not rigid and No hepatosplenomegaly present Percussion: Yes normal to percussion Auscultation: normal bowel sounds Rectal Exam - Female: deferred Skin General skin exam: no rashes or lesions noted, turgor normal, skin not dry, no jaundice, No spider nevi and no striae Rashes: no rashes Nails: normal Neuro General: oriented to person, oriented to place and oriented to time Cranial nerves: Yes Equal, round and reactive pupils present and Yes Normal hearing present Speech: No Abnormal speech present Extrem General: Yes normal to inspection, No clubbing, No cyanosis and No edema Psych Appearance: grossly normal and well kempt Mental Status: mental status grossly normal Speech and movement: Normal speech and movement present Affect: normal affect Attitude: cooperative Thought process: not confabulating and Impoverished thought process present Thought content: Normal thought content present Insight: Limited insight present (Psych) Judgement: Limited judgement present (Psych) Results Reviewed Results Reviewed: Laboratory Tests 11/28/24 16:49 Alk Phos Bone Specific 17.9 Anti-Mitochondrial Ab NEGATIVE Assessment & Plan Assessment & Plan (1) Elevated alkaline phosphatase level: Comment: 11/28/24 16:49 Alk Phos Bone Specific 17.9 Anti-Mitochondrial Ab NEGATIVE Code(s): R74.8 - Abnormal levels of other serum enzymes Category: Medical (2) Hiatal hernia: Comment: 01/2024 UGI A small to moderate-sized type I hiatal hernia is present. Significant gastroesophageal reflux seen up to the thoracic inlet. Code(s): K44.9 - Diaphragmatic hernia without obstruction or gangrene Category: Medical (3) Rectal spasm: Code(s): K59.4 - Anal spasm Category: Medical (4) Chronic idiopathic constipation: Code(s): K59.04 - Chronic idiopathic constipation Category: Medical (5) Epigastric pain: Code(s): R10.13 - Epigastric pain Category: Medical Plan Malagasy #Ese Live She is on Linzess, dicyclomine, and famotidine. She has sustained her 1st improvement in symptoms since we started working together! I think this is because she is taking the dicyclomine in the Linzess faithfully which has been a barrier to her care in the past. I let her know today that these will be chronic medications. We were trying to investigate a slightly elevated alk-phos and it did not seem to be coming from bone or from anything to concerning like biliary obstruction. I think she just has a slightly higher than normal average. Her chronic abdominal pain is greatly improved as is her rectal spasms. She still has intermittent epigastric pain, I am uncertain how much a mild to moderate hiatal hernia may be playing in this. I think we will wait until after the EGD before we decide if surgery is needed. Return office visit after her endoscopy EGD BIOPSY Coding Level of Care Code Est Pt Level 3 (72087) Diagnoses Elevated alkaline phosphatase level R74.8 Hiatal hernia K44.9 Rectal spasm K59.4 Chronic idiopathic constipation K59.04 Epigastric pain R10.13
[2025-01-03 11:26] VITALS: BP 137/95; PULSE 105
== END 2025-01-03 12:08 | disposition home or self-care (01) ==
LOC: HO.HGI 11:07
PROVIDERS: PCP Internal Medicine; Visit Provider Nurse Practitioner
DX: R74.8 Abnormal levels of other serum enzymes (principal); K44.9 Diaphragmatic hernia without obstruction or gangrene; K59.4 Anal spasm; K59.04 Chronic idiopathic constipation; R10.13 Epigastric pain
CPT/HCPCS: 99213

== ENCOUNTER → 2025-01-03 11:07 | Outpatient (BNVA) | payer OTHER, SELFPAY | PROVIDERS: PCP Internal Medicine; Visit Provider Nurse Practitioner | DX: K59.4 Anal spasm (principal); K59.04 Chronic idiopathic constipation; R10.13 Epigastric pain; R74.8 Abnormal levels of other serum enzymes; K44.9 Diaphragmatic hernia without obstruction or gangrene | CPT/HCPCS: 99212 ==